=== PATIENT | male | born 1945 | race Caucasian/White ===

== ENCOUNTER 2020-01-15 14:25 | Outpatient (CLI) | payer MEDICARE, MEDICAID, SELFPAY ==
[2020-01-15 14:57] LABS: Alanine Aminotransferase 13 U/L (0-41); Albumin Level 4.4 g/dL (3.5-5.2); Alkaline Phosphatase 70 IU/L (40-130); Anion Gap 13.8 (5-19); Aspartate Amino Transferase 18 U/L (0-40); Blood Urea Nitrogen 18 mg/dL (8-23); Carbon Dioxide 33 mmol/L (22-29); Chloride 99 mmol/L (98-107); Chol HDL Ratio 1.91 mg/dL (1.0-5.00); Cholesterol 168 mg/dL (0-200); Globulin 2.8 g/dL (1.3-4.6); Glucose 77 mg/dL (65-115); HDL Cholesterol 88 mg/dL (60-100); LDL Cholesterol Calculated 72 mg/dL (50-129); LDL HDL Ratio 0.82 RATIO (0.00-3.22); Osmolality Calculated 287 mOsm/kg (285-295); Potassium 4.8 mmol/L (3.5-5.1); Sodium 141 mmol/L (136-145); Total Bilirubin 0.2 mg/dL (0.15-1.2); Total Protein 7.2 g/dL (6.6-8.7); Triglycerides 41 mg/dL (0-150)
[2020-01-16 15:48] LABS: Basophils # 0.1 10^3/uL (0.0-0.1); Basophils % 0.9 %; Eosinophils # 0.2 10^3/uL (0.0-0.8); Eosinophils % 3.7 %; Hematocrit 43.3 % (42.0-52.0); Hemoglobin 12.1 g/dL (11.7-16.6); Lymphocytes # 1.2 10^3/uL (0.8-4.8); Lymphocytes % 18.2 %; Mean Corpuscular HGB Conc 27.9 g/dL (30.0-36.0); Mean Platelet Volume 10.6 fL (7.4-10.4); Monocytes # 0.6 10^3/uL (0.2-0.9); Monocytes % 8.6 %; Neutrophils # 4.4 10^3/uL (1.8-7.7); Neutrophils % 68.1 %; Nucleated Red Blood Cells % 0 %; Platelet Count 246 10^3/cmm (130-400); Red Cell Distribution Width 14.9 % (12.1-15.1); White Blood Count 6.5 10^3/uL (4.0-10.0)
== END 2020-01-15 14:26 | disposition home or self-care (01) ==
LOC: LAB 14:30
PROVIDERS: PCP Radiology Radiation Oncology; Visit Provider Nurse Practitioner Family
DX: Z85.038 Personal history of other malignant neoplasm of large intestine (principal)
CPT/HCPCS: 80053; 80061; 85025

== ENCOUNTER 2020-01-16 08:00 | Outpatient (CLI) | payer MEDICARE, MEDICAID, SELFPAY | END 2020-01-16 08:01 | disposition home or self-care (01) | LOC: LAB 01-29 09:37 | PROVIDERS: Visit Provider Nurse Practitioner Family | DX: Z85.038 Personal history of other malignant neoplasm of large intestine (principal) | CPT/HCPCS: 85025 ==

== ENCOUNTER 2020-01-21 14:38 | Outpatient (CLI) | payer MEDICARE, MEDICAID, SELFPAY ==
[2020-01-21 15:16] LABS: Bilirubin Urine Neg (NEGATIVE); Blood Urine Neg (Negative); Glucose Urine UA Norm (Normal); Ketones Urine Negative (Negative); Leukocyte Esterase Urine Negative (Negative); Nitrate Urine Negative (Negative); Protein Urine Neg (Negative); Urine Appearance Clear (CLEAR); Urine Color Yellow (Yellow); Urobilinogen Urine Norm (Negative); pH Urine 5 (5-7)
[2020-01-21 15:40] LABS: Add Urine Culture? No; Bacteria Urine TRACE; Squamous Epithelial Cell Urine 0-4 (0-5)
== END 2020-01-21 14:39 | disposition home or self-care (01) ==
LOC: LAB 14:41
PROVIDERS: Visit Provider Nurse Practitioner Family
DX: Z85.038 Personal history of other malignant neoplasm of large intestine (principal)
CPT/HCPCS: 81001

== ENCOUNTER 2020-12-02 20:54 | Inpatient (IN) | payer MEDICARE, MEDICAID, SELFPAY ==
[2020-12-02 21:02] VITALS: BP 184/102; PULSE 98; RESP 14; O2SAT 99; BMI 18.5
[2020-12-02 21:23] VITALS: BP 189/128; PULSE 97; RESP 18; O2SAT 93
--- NOTE | 2020-12-02 21:23 | CTR_ITS ---
PROCEDURE INFORMATION: Exam: CT Head Without Contrast Exam date and time: 12/02/2020 9:27 PM Age: 75 years old Clinical indication: Pain; Altered mental status/memory loss; Confusion or disorientation; Patient HX: AMS. Confusion. Frontal headache. TECHNIQUE: Imaging protocol: Computed tomography of the head without contrast. Radiation optimization: All CT scans at this facility use at least one of these dose optimization techniques: automated exposure control; mA and/or kV adjustment per patient size (includes targeted exams where dose is matched to clinical indication); or iterative reconstruction. ADDITIONAL STUDY INFORMATION: Total DLP (mGy-cm): 896.91 COMPARISON: No relevant prior studies available. FINDINGS: Examination is limited by artifacts from patient motion. There is prominent low density in the bilateral periventricular white matter which may represent chronic small vessel ischemic disease in the appropriate clinical setting. The possibility of superimposed acute infarctions cannot be excluded; consider MRI brain (including diffusion images) for further assessment if clinically warranted and if patient has no contraindication to MRI. There are prominent intracranial arterial calcifications. There is mild cerebral cortical volume loss. Ventricles do not appear significantly dilated. No definite depressed calvarial fracture is demonstrated. Visualized paranasal sinuses and mastoid air cells demonstrate no significant opacification. There is aeration of each anterior clinoid process and the optic nerves traverse these regions. CT/CT head wo con* [id number] IMPRESSION: Examination is limited by artifacts from patient motion. Probable prominent chronic ischemic changes as discussed above. Radiation Dose CTDIVOL = (mGy): DLP = 896.91 (mGy-cm)
--- NOTE | 2020-12-02 21:23 | XR_ITS ---
WS: [id number] Portable AP upright chest, 12/02/2020 Clinical Data: ams Comparison: Portable chest, 11/12/2018. Findings: There is a 4 cm spiculated mass with a irregular border in the left lower lobe. The diaphra gms are flattened. Chronic interstitial changes are seen throughout both lungs. There is pleural thic kening in both upper lobes. The heart is normal. The aortic arch is tortuous. No effusions are seen. No pneumothorax is present. The left diaphragm is slightly elevated. Monitor leads are on the chest w all. XR/XR chest 1V portable [id number] Impression: 1. 4 cm mass in left lower lobe consistent with cancer of the lung. 2. Bilateral upper lobe pleural thickening unchanged. 3. Chronic interstitial changes of COPD unchanged.
--- NOTE | 2020-12-02 21:23 | ECG_ITS ---
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 Measurements Intervals [place] Rate: 89 P: [place]: QRS: 79 QRSD: 96 T: 64 QT: 380 QTc: 463 Interpretive Statements ATRIAL FIBRILLATION INCOMPLETE RIGHT BUNDLE BRANCH BLOCK [90+ ms QRS DURATION, TERMINAL R IN V1/V2, 40+ ms S IN I/aVL/V4/V5/V6] MINIMAL ST DEPRESSION [0.025+ mV ST DEPRESSION] ABNORMAL RHYTHM ECG Compared to ECG 11/12/2018 10:40:37 Incomplete right bundle-branch block now present Aberrant conduction of supraventricular beat(s) no longer present Ventricular premature complex(es) no longer present ST (T wave) deviation still present Electronically Signed On 12-03-2020 19:46:38 CDT by Erica Orosco M.D. [id number]
--- NOTE | 2020-12-02 21:27 | ED_ITS ---
HPI - Altered Mental Status General: Chief Complaint: Altered Mental Status Stated Complaint: DYSPNEA Time Seen by Provider: 12/02/20 21:13 Source: patient Mode of arrival: ambulatory Limitations: altered mental status History of Present Illness: HPI narrative: 75-year-old male who is here by EMS. He states that he has had confusion over the last 2 days. Family states that as a missing normal was yesterday. Here he has pretty severe aphasia with word finding difficulty. He is confused and unable to tell me the year. He does state he has had some chest pain. He is able to move all his extremities but does have slurred speech and word salad. I said his last known normal was yesterday. 2139 patient's daughter here now. She states that she spoke to him this morning at 9 AM and his speech was not like it is currently so his last known definite normal is 90 a.m. She states that he seems to be having extremely hard time finding words and this is not his normal. Associated symptoms: Deny depression Review of Systems Const: Denies: fever(s), chills, body aches or change in appetite Eyes: Denies: blurry vision or eye discomfort ENMT: Denies: throat pain or dental pain Card: Denies: chest pain Resp: Denies: dyspnea GI: Denies: abdominal pain, nausea, vomiting or diarrhea : Denies: dysuria Musc: Denies: neck pain or back pain Skin/Breast: Denies: rash Neuro: Reports: weakness in extremities and confusion; Denies: headache(s) Psych: Denies: depression Baljeet/Lymph: Denies: easy bruising All/Imm: Denies: urticaria PFSH ED PFSH: Medical History Abnormal colonoscopy Cardiomyopathy Colon polyps COPD (chronic obstructive pulmonary disease) Rectal bleed Rectal mass adenocarcinoma Smoker Surgical History (Updated 12/03/20 @ 00:06 by Chema Ge MD) H/O hernia repair Family History (Updated 12/03/20 @ 00:07 by Chema Ge MD) Daughter No problems noted. Brother Cancer colon cancer Social History (Updated 12/03/20 @ 00:07 by Chema Ge MD) Smoking and tobacco status: current every day smoker Alcohol intake: never Substance/Drug Use: never Household members: family Housing: House Physical Exam Const: COMMON NORMALS: no acute distress and healthy appearing; negative for patient oriented x3 HENMT: COMMON NORMALS: normocephalic and atraumatic HEAD & SCALP: normocephalic and atraumatic Eye: COMMON NORMALS: Equal, round and reactive pupils present and EOMs intact bilaterally PUPIL: Yes Equal, round and reactive pupils present Neck/C-Spine: COMMON NORMALS: full ROM and supple Chest: COMMONS NORMALS: normal inspection of the chest and normal palpation of entire chest wall Resp: COMMON NORMALS: normal respiratory effort, No retractions, No use of accessory muscles and clear to auscultation bilaterally AUSCULTATION: clear to auscultation bilaterally Cardio: COMMON NORMALS: regular rate, regular rhythm and No murmurs present (Cardio) RATE: regular rate RHYTHM: regular rhythm GI: COMMON NORMALS: Normal to inspection, nondistended, normoactive bowel sounds present, Soft to palpation, non-tender and no masses PALPATION: Yes Soft to palpation Extremity: COMMON NORMALS: normal to inspection and full ROM Neuro: COMMON NORMALS: moves all extremities; negative for patient oriented x3 CRANIAL NERVES: Yes CN normal except as noted COORDINATION/BALANCE: [id number] test normal SPEECH: abnormal speech and expressive aphasia MOTOR EXAM: 5/5 motor strength present throughout COORDINATION: [id number] test normal Psych: COMMON NORMALS: Normal thought process present and cooperative; negative for mental status grossly normal and negative for speech normal SPEECH: No normal speech THOUGHT PROCESS: Normal thought process present Skin: COMMON NORMALS: no rashes or lesions noted and no wounds GENERAL SKIN EXAM: no rashes or lesions noted Course Vital Signs: Vital signs: Vital Signs Pulse Rate 100 12/02/20 23:15 Respiratory Rate 19 H 12/02/20 23:15 Blood Pressure 162/96 12/02/20 23:15 Pulse Oximetry 98 12/02/20 23:15 MDM - Altered Mental Status MDM Narrative: Medical decision making narrative: Patient presents here with aphasia. I did go back and reevaluate him and his speech is getting better but he still not clear. CTA shows no acute plaque formation. He last known normal was 9 AM is out of any treatment window for TPA or retrieval. Patient also has a lung mass noted on CT. I spoke to the hospitalist will admit at this time. Patient has been stable while here. Lab Data: Labs: Lab Results 12/02/20 12/02/20 12/02/20 Range/Units 21:59 21:59 21:59 WBC 8.4 (4.0-10.0) 10^3/ uL RBC 3.98 L (4.1-5.3) 10^6/u L Hgb 12.1 (11.7-16.6) g/dL Hct 38.0 L (42.0-52.0) % MCV 95.5 H (80-94) fL MCH 30.4 (28.0-34.0) pg MCHC 31.8 (30.0-36.0) g/dL RDW 15.2 H (12.1-15.1) % Plt Count 206 (130-400) 10^3/c mm MPV 9.3 (7.4-10.4) fL Neut % (Auto) 83.2 % Lymph % (Auto) 6.9 % [place] % (Auto) 7.5 % Eos % (Auto) 1.3 % Baso % (Auto) 0.5 % Neut # (Auto) 6.94 (1.8-7.7) 10^3/u L Lymph # (Auto) 0.6 L (0.8-4.8) 10^3/u L [place] # (Auto) 0.6 (0.2-0.9) 10^3/u L Eos # (Auto) 0.1 (0.0-0.8) 10^3/u L Baso # (Auto) 0.0 (0.0-0.1) 10^3/u L Nucleated RBC % (a uto) 0 % Nucleated RBCs # 0.0 /100WBC PT 13.20 (12.1-14.9) SECO NDS INR 0.97 (0.8-1.2) Sodium 136 (136-145) mmol/L Potassium 4.5 (3.5-5.1) mmol/L Chloride 99 (98-107) mmol/L Carbon Dioxide 28 (22-29) mmol/L Anion Gap 13.5 (5-19) BUN 16 (8-23) mg/dL Creatinine 1.0 (0.7-1.2) mg/dL GFR Calculation Not Reportable Glucose 135 H (65-115) mg/dL Calculated Osmolal ity 285 (285-295) mOsm/k g Calcium 8.6 (8.5-10.5) mg/dL Total Bilirubin 0.4 (0.15-1.2) mg/dL AST 14 (0-40) U/L ALT 10 (0-41) U/L Alkaline Phosphata se 91 (40-130) IU/L Troponin T Baselin e (0-15) ng/L Total Protein 7.7 (6.6-8.7) g/dL Albumin 4.2 (3.5-5.2) g/dL Globulin 3.5 (1.3-4.6) g/dL 12/02/20 Range/Units 21:59 WBC (4.0-10.0) 10^3/ uL RBC (4.1-5.3) 10^6/u L Hgb (11.7-16.6) g/dL Hct (42.0-52.0) % MCV (80-94) fL MCH (28.0-34.0) pg MCHC (30.0-36.0) g/dL RDW (12.1-15.1) % Plt Count (130-400) 10^3/c mm MPV (7.4-10.4) fL Neut % (Auto) % Lymph % (Auto) % [place] % (Auto) % Eos % (Auto) % Baso % (Auto) % Neut # (Auto) (1.8-7.7) 10^3/u L Lymph # (Auto) (0.8-4.8) 10^3/u L [place] # (Auto) (0.2-0.9) 10^3/u L Eos # (Auto) (0.0-0.8) 10^3/u L Baso # (Auto) (0.0-0.1) 10^3/u L Nucleated RBC % (a uto) % Nucleated RBCs # /100WBC PT (12.1-14.9) SECO NDS INR (0.8-1.2) Sodium (136-145) mmol/L Potassium (3.5-5.1) mmol/L Chloride (98-107) mmol/L Carbon Dioxide (22-29) mmol/L Anion Gap (5-19) BUN (8-23) mg/dL Creatinine (0.7-1.2) mg/dL GFR Calculation Glucose (65-115) mg/dL Calculated Osmolal ity (285-295) mOsm/k g Calcium (8.5-10.5) mg/dL Total Bilirubin (0.15-1.2) mg/dL AST (0-40) U/L ALT (0-41) U/L Alkaline Phosphata se (40-130) IU/L Troponin T Baselin e 38 H (0-15) ng/L Total Protein (6.6-8.7) g/dL Albumin (3.5-5.2) g/dL Globulin (1.3-4.6) g/dL Imaging Data^: CT Head: Radiologist's impression: [facility] [address] [address] Scan Report Signed Patient: Junior Rambo Unit #: [id number] : 1945 Age/Sex: 75 / M ADM Date: 12/02/20 Loc: ER Room/Bed: Attending Dr: Ordering Provider/Ordering MD: David Jolley MD Date of Service: 12/02/20 Procedure(s): CT head wo con* [id number] Accession Number(s): [id number] Report Number: [id number] PROCEDURE INFORMATION: Exam: CT Head Without Contrast Exam date and time: 12/02/2020 9:27 PM Age: 75 years old Clinical indication: Pain; Altered mental status/memory loss; Confusion or disorientation; Patient HX: AMS. Confusion. Frontal headache. TECHNIQUE: Imaging protocol: Computed tomography of the head without contrast. Radiation optimization: All CT scans at this facility use at least one of these dose optimization techniques: automated exposure control; mA and/or kV adjustment per patient size (includes targeted exams where dose is matched to clinical indication); or iterative reconstruction. ADDITIONAL STUDY INFORMATION: Total DLP (mGy-cm): 896.91 COMPARISON: No relevant prior studies available. FINDINGS: Examination is limited by artifacts from patient motion. There is prominent low density in the bilateral periventricular white matter which may represent chronic small vessel ischemic disease in the appropriate clinical setting. The possibility of superimposed acute infarctions cannot be excluded; consider MRI brain (including diffusion images) for further assessment if clinically warranted and if patient has no contraindication to MRI. There are prominent intracranial arterial calcifications. There is mild cerebral cortical volume loss. Ventricles do not appear significantly dilated. No definite depressed calvarial fracture is demonstrated. Visualized paranasal sinuses and mastoid air cells demonstrate no significant opacification. There is aeration of each anterior clinoid process and the optic nerves traverse these regions. CT/CT head wo con* [id number] IMPRESSION: Examination is limited by artifacts from patient motion. Probable prominent chronic ischemic changes as discussed above. CT Chest: Attestation: I personally reviewed and interpreted this imaging study as follows: Radiologist's impression: [facility] [address] [address] Scan Report Signed Patient: Junior Rambo Unit #: [id number] : 1945 Age/Sex: 75 / M ADM Date: 12/02/20 Loc: ER Room/Bed: Attending Dr: Ordering Provider/Ordering MD: David Jolley MD Date of Service: 12/02/20 Procedure(s): CT chest w con* [id number] Accession Number(s): [id number] Report Number: [id number] PROCEDURE INFORMATION: Exam: CT Chest With Contrast; Diagnostic Exam date and time: 12/02/2020 10:21 PM Age: 75 years old Clinical indication: Abnormal findings; Abnormal radiologic exam of lung or chest; Additional info: Lung mass TECHNIQUE: Imaging protocol: Diagnostic computed tomography of the chest with contrast. Radiation optimization: All CT scans at this facility use at least one of these dose optimization techniques: automated exposure control; mA and/or kV adjustment per patient size (includes targeted exams where dose is matched to clinical indication); or iterative reconstruction. Contrast material: OMNI 350; Contrast volume: 75 ml; Contrast route: INTRAVENOUS (IV); COMPARISON: 1. CT chest w con* [id number] 12/04/2018 11:[address] Chest/Abdomen/Pelvis w IV* 08/24/2018 10:08:23 AM RADIATION DOSE METRICS: Total DLP (mGy-cm): 595.19 FINDINGS: Lungs: There is a spiculated 3.3 x 4.5 x 3.2 cm sized mass in the left lower lobe with scarring and retraction of the adjacent lung. The mass extends to end retracts the fissure on the left and there is extension inferiorly towards the left pleural surface with a 9 mm sized subpleural satellite nodule worrisome for additional malignancy. There are extensive changes of pulmonary emphysema on both sides. This mass is larger than on prior studies including PET scan 12/16/2018. There is a stable subpleural nodule in the left lower lobe such as an image number 42 of series 602 coronal Pleural spaces: There is moderate left pleural effusion. There is bilateral apical pleural thickening increased from the prior examinations. Heart: Unremarkable. No cardiomegaly. No pericardial effusion. Mediastinal space: There is a small hiatal hernia. Aorta: There is no evidence of thoracic aortic aneurysm or dissection. Lymph nodes: There is small left paratracheal lymph nodes measuring up to 10 x 12 mm slightly more prominent than on the previous examination. Bones/joints: Unremarkable. No acute fracture. Soft tissues: Unremarkable. CT/CT chest w con* [id number] IMPRESSION: 1. Severe COPD. 2. Enlarging left pulmonary mass which is highly worrisome for malignancy. 3. Left pleural effusion. 4. Increasing apical pleural thickening on both sides. Other CT: Radiologist's impression: [email or web address] [address] [address] Scan Report Signed Patient: Junior Rambo Unit #: [id number] : 1945 Age/Sex: 75 / M ADM Date: 0 12/02/20 Loc: ER Room/Bed: Attending Dr: Ordering Provider/Ordering MD: David Jolley MD Date of Service: 12/02/20 Procedure(s): CT angio headneck* [id number] Accession Number(s): [id number] Report Number: [id number] PROCEDURE INFORMATION: Exam: CT Angiography Head With Contrast, Arteries Exam date and time: 12/02/2020 9:54 PM Age: 75 years old Clinical indication: Speech disturbance; Additional info: CVA TECHNIQUE: Imaging protocol: Computed tomography angiography of the head with intravenous contrast. 3D rendering (Not supervised by radiologist): MIP and/or 3D reconstructed images were created by the technologist. Total images: 823 Radiation optimization: All CT scans at this facility use at least one of these dose optimization techniques: automated exposure control; mA and/or kV adjustment per patient size (includes targeted exams where dose is matched to clinical indication); or iterative reconstruction. Contrast material: OMNI 350; Contrast volume: 75 ml; Contrast route: INTRAVENOUS (IV); COMPARISON: No relevant prior studies available. 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 Intracranial segment is patent with no significant stenosis. No aneurysm. Right middle cerebral artery: Unremarkable. No occlusion or significant stenosis. No aneurysm. Right anterior cerebral artery: Unremarkable. No occlusion or significant stenosis. No aneurysm. Left internal carotid artery: Findings raising suspicion for very short segment hemodynamically significant stenosis of the petrous portion of the internal carotid artery estimated between 60 and 70%. No occlusion. 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 Intracranial segment is patent with no significant stenosis. No aneurysm. Left middle cerebral artery: Unremarkable. No occlusion or significant stenosis. No aneurysm. Left anterior cerebral artery: Unremarkable. No occlusion or significant stenosis. No aneurysm. POSTERIOR CIRCULATION: Right vertebral artery: Hypoplastic. In No occlusion or significant stenosis. No aneurysm. Left vertebral artery: Unremarkable. No occlusion or significant stenosis. No aneurysm. Basilar artery: Unremarkable. No occlusion or significant stenosis. No aneurysm. Right posterior cerebral artery: Unremarkable. No occlusion or significant stenosis. No aneurysm. Left posterior cerebral artery: Unremarkable. No occlusion or significant stenosis. No aneurysm. Bones/joints: Unremarkable. No acute fracture. Soft tissues: Unremarkable. IMPRESSION: 1. Findings raising suspicion for very short segment hemodynamically significant stenosis of the petrous portion of the left internal carotid artery estimated between 60 and 70%. No occlusion. 2. 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 3. Hypoplastic right vertebral artery. PROCEDURE INFORMATION: Exam: CT Angiography Neck With Contrast Exam date and time: 12/02/2020 9:54 PM Age: 75 years old Clinical indication: Speech disturbance; Additional info: CVA TECHNIQUE: Imaging protocol: Computed tomography angiography of the neck with intravenous contrast. 3D rendering (Not supervised by radiologist): MIP and/or 3D reconstructed images were created by the technologist. Radiation optimization: All CT scans at this facility use at least one of these dose optimization techniques: automated exposure control; mA and/or kV adjustment per patient size (includes targeted exams where dose is matched to clinical indication); or iterative reconstruction. Contrast material: OMNI 350; Contrast volume: 75 ml; Contrast route: INTRAVENOUS (IV); COMPARISON: No relevant prior studies available. RADIATION DOSE METRICS: Total DLP (mGy-cm): 2272.05 FINDINGS: Right common carotid artery: No hemodynamically significant stenosis. No dissection or occlusion. Right internal carotid artery: No hemodynamically significant stenosis of the extracranial segment. No dissection or occlusion. Right external carotid artery: No occlusion or stenosis of the origin. Right vertebral artery: Hypoplastic. No stenosis. No dissection or occlusion. Left common carotid artery: No hemodynamically significant stenosis. No dissection or occlusion. Left internal carotid artery: No hemodynamically significant stenosis of the extracranial segment. No dissection or occlusion. Left external carotid artery: No occlusion or stenosis of the origin. Left vertebral artery: No stenosis. No dissection or occlusion. Bones/joints: No acute fracture. Soft tissues: Unremarkable for age. No significant soft tissue swelling. Lungs: Markedly advanced centrilobular emphysema with parenchymal scarring. CT/CT angio headneck* [id number] IMPRESSION: 1. No hemodynamically significant stenosis or occlusion. 2. 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 REFERENCES: 1. NASCET CRITERIA. The degree of internal carotid artery stenosis is based on NASCET criteria. Normal is no stenosis. Mild is less than 50% stenosis. Moderate is 50-69% stenosis. Severe is 70% to 99% stenosis. Total occlusion is no detectable patent lumen. 2. In EKG Data^: EKG 1: Attestation: I personally reviewed and interpreted this EKG as follows: EKG interpretation date: 12/02/20 EKG interpretation time: 22:01 Interpretation: afib hr [address] or t wave abnormalities qrs 96 qtc 426 Discharge Plan Discharge Patient Disposition: Admitted As Inpatient Clinical Impression: Acute CVA (cerebrovascular accident), Lung mass Condition: Stable Coding Level of Care Code ED Salt Manager for Chg Fwd Exam Comprehensive NIH stroke score NIHSS Level Of Consciousness - 1a: 0 Level Of Consciousness Questions - 1b: Both Correct Level Of Consciousness Commands - 1c: Both Correct Best Gaze - 2: Normal Visual Kathleen - 3: No Visual Loss Facial Palsy - 4: Normal Motor Arm Right - 5: No Drift Motor Arm Left - 5: No Drift Motor Leg Right - 6: No Drift Motor Leg Left - 6: No Drift Limb Ataxia - 7: Absent Sensory - 8: Normal Best Language - 9: Severe Aphasia Dysarthia - 10: Severe Dysarthia Extinction And Inattention - 11: 0 Score Total Score: 4
--- NOTE | 2020-12-02 21:51 | CTR_ITS ---
PROCEDURE INFORMATION: Exam: CT Angiography Head With Contrast, Arteries Exam date and time: 12/02/2020 9:54 PM Age: 75 years old Clinical indication: Speech disturbance; Additional info: CVA TECHNIQUE: Imaging protocol: Computed tomography angiography of the head with intravenous contrast. 3D rendering (Not supervised by radiologist): MIP and/or 3D reconstructed images were created by the technologist. Total images: 823 Radiation optimization: All CT scans at this facility use at least one of these dose optimization techniques: automated exposure control; mA and/or kV adjustment per patient size (includes targeted exams where dose is matched to clinical indication); or iterative reconstruction. Contrast material: OMNI 350; Contrast volume: 75 ml; Contrast route: INTRAVENOUS (IV); COMPARISON: No relevant prior studies available. 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 Intracranial segment is patent with no significant stenosis. No aneurysm. Right middle cerebral artery: Unremarkable. No occlusion or significant stenosis. No aneurysm. Right anterior cerebral artery: Unremarkable. No occlusion or significant stenosis. No aneurysm. Left internal carotid artery: Findings raising suspicion for very short segment hemodynamically significant stenosis of the petrous portion of the internal carotid artery estimated between 60 and 70%. No occlusion. 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 Intracranial segment is patent with no significant stenosis. No aneurysm. Left middle cerebral artery: Unremarkable. No occlusion or significant stenosis. No aneurysm. Left anterior cerebral artery: Unremarkable. No occlusion or significant stenosis. No aneurysm. POSTERIOR CIRCULATION: Right vertebral artery: Hypoplastic. In No occlusion or significant stenosis. No aneurysm. Left vertebral artery: Unremarkable. No occlusion or significant stenosis. No aneurysm. Basilar artery: Unremarkable. No occlusion or significant stenosis. No aneurysm. Right posterior cerebral artery: Unremarkable. No occlusion or significant stenosis. No aneurysm. Left posterior cerebral artery: Unremarkable. No occlusion or significant stenosis. No aneurysm. Bones/joints: Unremarkable. No acute fracture. Soft tissues: Unremarkable. IMPRESSION: 1. Findings raising suspicion for very short segment hemodynamically significant stenosis of the petrous portion of the left internal carotid artery estimated between 60 and 70%. No occlusion. 2. 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 3. Hypoplastic right vertebral artery. PROCEDURE INFORMATION: Exam: CT Angiography Neck With Contrast Exam date and time: 12/02/2020 9:54 PM Age: 75 years old Clinical indication: Speech disturbance; Additional info: CVA TECHNIQUE: Imaging protocol: Computed tomography angiography of the neck with intravenous contrast. 3D rendering (Not supervised by radiologist): MIP and/or 3D reconstructed images were created by the technologist. Radiation optimization: All CT scans at this facility use at least one of these dose optimization techniques: automated exposure control; mA and/or kV adjustment per patient size (includes targeted exams where dose is matched to clinical indication); or iterative reconstruction. Contrast material: OMNI 350; Contrast volume: 75 ml; Contrast route: INTRAVENOUS (IV); COMPARISON: No relevant prior studies available. RADIATION DOSE METRICS: Total DLP (mGy-cm): 2272.05 FINDINGS: Right common carotid artery: No hemodynamically significant stenosis. No dissection or occlusion. Right internal carotid artery: No hemodynamically significant stenosis of the extracranial segment. No dissection or occlusion. Right external carotid artery: No occlusion or stenosis of the origin. Right vertebral artery: Hypoplastic. No stenosis. No dissection or occlusion. Left common carotid artery: No hemodynamically significant stenosis. No dissection or occlusion. Left internal carotid artery: No hemodynamically significant stenosis of the extracranial segment. No dissection or occlusion. Left external carotid artery: No occlusion or stenosis of the origin. Left vertebral artery: No stenosis. No dissection or occlusion. Bones/joints: No acute fracture. Soft tissues: Unremarkable for age. No significant soft tissue swelling. Lungs: Markedly advanced centrilobular emphysema with parenchymal scarring. CT/CT angio headneck* [id number] IMPRESSION: 1. No hemodynamically significant stenosis or occlusion. 2. 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 REFERENCES: 1. NASCET CRITERIA. The degree of internal carotid artery stenosis is based on NASCET criteria. Normal is no stenosis. Mild is less than 50% stenosis. Moderate is 50-69% stenosis. Severe is 70% to 99% stenosis. Total occlusion is no detectable patent lumen. 2. In Radiation Dose CTDIVOL = (mGy): DLP = 2272.05~2272.05 (mGy-cm)
[2020-12-02 22:09] LABS: Basophils % 0.5 %; Eosinophils # 0.1 10^3/uL (0.0-0.8); Eosinophils % 1.3 %; Hemoglobin 12.1 g/dL (11.7-16.6); Lymphocytes # 0.6 10^3/uL (0.8-4.8); Lymphocytes % 6.9 %; Mean Corpuscular HGB Conc 31.8 g/dL (30.0-36.0); Mean Corpuscular Hemoglobin 30.4 pg (28.0-34.0); Mean Corpuscular Volume 95.5 fL (80-94); Mean Platelet Volume 9.3 fL (7.4-10.4); Monocytes # 0.6 10^3/uL (0.2-0.9); Monocytes % 7.5 %; Neutrophils # 6.94 10^3/uL (1.8-7.7); Neutrophils % 83.2 %; Nucleated Red Blood Cells % 0 %; Platelet Count 206 10^3/cmm (130-400); Red Blood Count 3.98 10^6/uL (4.1-5.3); Red Cell Distribution Width 15.2 % (12.1-15.1); White Blood Count 8.4 10^3/uL (4.0-10.0)
[2020-12-02] MEDS: ondansetron 2 mg/ML SDV 2 mL 4 MG IVP (22:09)
[2020-12-02] MEDS: aspirin 325 mg Tablet PO (22:10)
--- NOTE | 2020-12-02 22:12 | CTR_ITS ---
PROCEDURE INFORMATION: Exam: CT Chest With Contrast; Diagnostic Exam date and time: 12/02/2020 10:21 PM Age: 75 years old Clinical indication: Abnormal findings; Abnormal radiologic exam of lung or chest; Additional info: Lung mass TECHNIQUE: Imaging protocol: Diagnostic computed tomography of the chest with contrast. Radiation optimization: All CT scans at this facility use at least one of these dose optimization techniques: automated exposure control; mA and/or kV adjustment per patient size (includes targeted exams where dose is matched to clinical indication); or iterative reconstruction. Contrast material: OMNI 350; Contrast volume: 75 ml; Contrast route: INTRAVENOUS (IV); COMPARISON: 1. CT chest w con* [id number] 12/04/2018 11:[address] Chest/Abdomen/Pelvis w IV* 08/24/2018 10:08:23 AM RADIATION DOSE METRICS: Total DLP (mGy-cm): 595.19 FINDINGS: Lungs: There is a spiculated 3.3 x 4.5 x 3.2 cm sized mass in the left lower lobe with scarring and retraction of the adjacent lung. The mass extends to end retracts the fissure on the left and there is extension inferiorly towards the left pleural surface with a 9 mm sized subpleural satellite nodule worrisome for additional malignancy. There are extensive changes of pulmonary emphysema on both sides. This mass is larger than on prior studies including PET scan 12/16/2018. There is a stable subpleural nodule in the left lower lobe such as an image number 42 of series 602 coronal Pleural spaces: There is moderate left pleural effusion. There is bilateral apical pleural thickening increased from the prior examinations. Heart: Unremarkable. No cardiomegaly. No pericardial effusion. Mediastinal space: There is a small hiatal hernia. Aorta: There is no evidence of thoracic aortic aneurysm or dissection. Lymph nodes: There is small left paratracheal lymph nodes measuring up to 10 x 12 mm slightly more prominent than on the previous examination. Bones/joints: Unremarkable. No acute fracture. Soft tissues: Unremarkable. CT/CT chest w con* [id number] IMPRESSION: 1. Severe COPD. 2. Enlarging left pulmonary mass which is highly worrisome for malignancy. 3. Left pleural effusion. 4. Increasing apical pleural thickening on both sides. Radiation Dose CTDIVOL = (mGy): DLP = 595.19 (mGy-cm)
[2020-12-02 22:18] LABS: INR 0.97 (0.8-1.2)
[2020-12-02 22:28] LABS: Alanine Aminotransferase 10 U/L (0-41); Albumin Level 4.2 g/dL (3.5-5.2); Alkaline Phosphatase 91 IU/L (40-130); Anion Gap 13.5 (5-19); Aspartate Amino Transferase 14 U/L (0-40); Blood Urea Nitrogen 16 mg/dL (8-23); Calcium 8.6 mg/dL (8.5-10.5); Carbon Dioxide 28 mmol/L (22-29); Chloride 99 mmol/L (98-107); Creatinine Clr Calc Pharmacy 48.4208; Globulin 3.5 g/dL (1.3-4.6); Glucose 135 mg/dL (65-115); Osmolality Calculated 285 mOsm/kg (285-295); Potassium 4.5 mmol/L (3.5-5.1); Sodium 136 mmol/L (136-145); Total Bilirubin 0.4 mg/dL (0.15-1.2); Total Protein 7.7 g/dL (6.6-8.7)
[2020-12-02 22:54] LABS: Troponin(5th) Baseline 38 ng/L (0-15)
[2020-12-02] MEDS: iohexol 350 mg/mL 100 mL Btl IV ×2 (22:55→22:58)
[2020-12-02 23:15] VITALS: BP 162/96; PULSE 100; RESP 19; O2SAT 98
[2020-12-02] MEDS: acetaminophen 500 mg Tablet 1000 MG PO (23:17)
--- NOTE | 2020-12-02 23:23 | ECG_ITS ---
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 Measurements Intervals [place] Rate: 83 P: AK: QRS: 85 QRSD: 94 T: 69 QT: 381 QTc: 449 Interpretive Statements ATRIAL FIBRILLATION INCOMPLETE RIGHT BUNDLE BRANCH BLOCK [90+ ms QRS DURATION, TERMINAL R IN V1/V2, 40+ ms S IN I/aVL/V4/V5/V6] MINIMAL ST DEPRESSION [0.025+ mV ST DEPRESSION] ABNORMAL RHYTHM ECG Compared to ECG 12/02/2020 22:01:53 No significant changes Electronically Signed On 12-03-2020 19:52:38 CDT by Erica Orosco M.D. [id number]
[2020-12-03] VITALS (14 sets, daily range): BP systolic 138–186; BP diastolic 69–98; PULSE 61–104; RESP 16–20; TEMP 36.2–37.1; O2SAT 95–98
--- NOTE | 2020-12-03 00:04 | P.HP_ITS ---
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 As per the rebeca westbrook, she spoke with him today at 9 AM at that time his speech was normal however patient is stating that his symptoms started last night with shortness of breath. He did not notice any speech abnormalities however daughter noticed garbled speech EMS was called for evaluation of stroke On arrival in the ER speech was garbled which was witnessed by Dr. Jolley, however when I saw the patient speech was normal, he had mild right-sided facial droop, he was struggling with word finding during conversation however was very pleasant and I did not appreciate any speech abnormality other than word finding difficulty. He is able to tell me that he smokes every day and he lives with his daughter, he told me about his cancer diagnosis in 2019. He is also stating that he is status post colon resection but never required any colostomy bag. He is denying chest pain, shortness of breath, fever nausea, vomiting or diarrhea. He feels back to baseline. Code stroke was not called because of delayed presentation and he was out of window for vascular intervention as well. CT head unremarkable however CTA head and neck revealedIMPRESSION: 1. Findings raising suspicion for very short segment hemodynamically significant stenosis of the petrous portion of the left internal carotid artery estimated between 60 and 70%. No occlusion. 2. 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 3. Hypoplastic right vertebral artery. Telemetry revealed A. fib with RVR heart rate 98-1 02 with normal hemodynamics he was requiring 3 L of oxygen at home he uses 2 to 3 L at baseline Review of Systems Const: Denies: fever(s) Eyes: Denies: change in vision ENMT: Denies: throat pain Card: Denies: chest pain Resp: Reports: dyspnea and non-productive cough GI: Denies: abdominal pain : Denies: flank pain Musc: Denies: neck pain Skin/Breast: Denies: rash Neuro: Reports: Slurred speech present and difficulty communicating thoughts Psych: Denies: anxiety Endo: Denies: polyuria Baljeet/Lymph: Denies: easy bruising All/Imm: Denies: urticaria PFSH Acute PFSH: Medical History Abnormal colonoscopy Cardiomyopathy Colon polyps COPD (chronic obstructive pulmonary disease) Rectal bleed Rectal mass adenocarcinoma Smoker Surgical History H/O hernia repair Family History Daughter No problems noted. Brother Cancer colon cancer Social History Smoking and tobacco status: current every day smoker Alcohol intake: never Substance/Drug Use: never Household members: family Housing: House Vitals/I&O/Wt Last Vital Signs Pulse 100 12/02/20 23:15 Resp 19 H 12/02/20 23:15 BP 162/96 12/02/20 23:15 Pulse Ox 98 12/02/20 23:15 Weight last 48 hrs Weight 55.338 kg Physical Exam Narrative: EXAM NARRATIVE: Very pleasant male who appears younger than stated age no signs of dehydration or fluid overload He was saturating well on 3 to nasal cannula NIH score 1 for mild right-sided facial droop no dysarthria, no upper or more extremity weakness he was awake and alert oriented x3 GCS 15, does struggle with word finding during conversation S1, S2 variable no signs of murmur Abdomen soft nontender bowel sound present Bilateral breath sounds without adventitial rhonchi or crackles No signs of cellulitis Lower extremity no edema gangrene or ulcer Appropriate mood and affect Data : 12/02/20 21:59 12/02/20 21:59 A&P Assessment and plan (1) New onset a-fib: Status: Acute (2) TIA (transient ischemic attack): Status: Acute Additional A&P Information TIA NIH 1 Code stroke was not called as he was not in TPA window or intervention CT head unremarkable however CTA head and neck revealed left internal carotid intracranial 6070% stenosis without occlusion Patient symptoms of garbled speech resolved by the time I saw him however has mild facial droop, will request MRI in the morning We will start him on dual antiplatelet therapy and atorvastatin along Eliquis Request echo in the morning New onset A. fib RVR There is no clot on CTA head and neck I will start him on Eliquis with low-dose metoprolol twice a day Check TSH and magnesium level This seems secondary to pulmonary pathology/lung mass Previous lung mass navigation bronchoscopy did not reveal malignant cells as per Dr. Gonzalez's note Adenocarcinoma of rectum Status post chemoradiation Patient is stating that he underwent surgery and he is in remission of cancer however he is denying requiring colostomy bag, I highly doubt APR resection would have been done without colostomy bag, please reevaluate surgical history in the morning with Dr. Gonzalez Patient is not endorsing any abdominal pain no constipation Dysarthria has improved I will keep him on cardiac diet for now we will request physical therapy evaluation in the morning Full code DVT prophylaxis not needed currently on Eliquis Attestations Medical Necessity Statement*: Anticipating discharge in less than 48 hours will need TIA work-up and new onset A. fib RVR Time Spent in Patient Care: (>than 50% of time spent in counselling and/or direct pt care on unit) . 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
[2020-12-03 00:23] LABS: Troponin 5 2HR 39.73 ng/L (0-15); Troponin 5 2HR Delta 1.73 ABS# (0-10)
[2020-12-03 00:30] LABS: Add Urine Microscopic? NO
[2020-12-03 00:36] LABS: Bilirubin Urine Neg (Negative); Blood Urine Neg (Negative); Glucose Urine UA Norm (Normal); Ketones Urine Negative (Negative); Leukocyte Esterase Urine Negative (Negative); Nitrate Urine Negative (Negative); Protein Urine Neg (Negative); Sulfosalicylic Acid Urine Negative (Negative); Urine Appearance Clear (CLEAR); Urine Color Yellow (Yellow); Urobilinogen Urine Norm (Negative); pH Urine 8 (5-7)
--- NOTE | 2020-12-03 03:23 | ECG_ITS ---
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 Measurements Intervals [place] Rate: 93 P: AK: QRS: 84 QRSD: 104 T: 72 QT: 378 QTc: 472 Interpretive Statements ATRIAL FIBRILLATION INCOMPLETE RIGHT BUNDLE BRANCH BLOCK [90+ ms QRS DURATION, TERMINAL R IN V1/V2, 40+ ms S IN I/aVL/V4/V5/V6] MINIMAL ST DEPRESSION [0.025+ mV ST DEPRESSION] ABNORMAL RHYTHM ECG Compared to ECG 12/03/2020 02:20:54 No significant changes Electronically Signed On 12-04-2020 22:42:01 CDT by Antonella Anderson M.D. [id number]
[2020-12-03 03:47] LABS: Magnesium 2.1 mg/dL (1.7-2.3); Thyroid Stimulating Hormone 1.27 uIU/mL (0.27-4.20)
[2020-12-03 04:54] LABS: Troponin 5 6HR 39.01 ng/L (0-15); Troponin 5 6HR Delta 1.01 ng/L (0-12)
--- NOTE | 2020-12-03 09:35 | PC.PHAR ---
pt states he takes care of his own medications-pt states he takes aspirin prn-pt states he only has one inhaler proair he uses prn-pt states he is unsure of the names of his medications he uses in his nebulizer machine-pt states he gets [facility] they sent budesonide,perforomist,and albuterol sulfate on 11/20/20
--- NOTE | 2020-12-03 09:48 | PC.CHAP ---
Pastoral Care Encounter/Spiritual Assessment Type of Contact [] Declined elementary teacher visit [] Patient/Family/Request visit [] Outpatient visit [] Follow-up visit [] Physician referral [] Code/Alert [x] Routine visit [] Staff referral [] Actively dying [] Patient sleeping [] Family support [] [] Out of room [] Palliative care [] [] Receiving care in room [] Pre-surgical visit [] Trauma [] Long length of stay [] ICU visit [] Other: Relational/Emotional Strength [x] Patient feels connected with others/family/visitors/staff [] Distress [] Loneliness/isolation [] Abandonment Spirituality of Patient [x] Person of Jeanie [] Attends Confucianist of their Jeanie [x] Believes in Prayer [x] Reads Bible or Latter Day materials [] There are Spiritual issues to be addressed Cellar Hand Interventions [x] Prayer [x] Active listening [x] Non-anxious presence [x] Spiritual/emotional support [] Crisis/trauma care [] Spiritual counseling [] Bereavement support [] Provided bereavement packet [] Provided Bible/devotional materials [] Provided toy/stuffed animal, coloring book to patient or family member [] Provided Communion [] Anointing/[place] [] Salvation [x] Completed spiritual assessment [] Other: Impact on Illness or Injury [] Angry [] Fearful [] Anxious [] Often cries [] Exhaustion [] Unable to work [] Unable to attend jewish [] Unable to walk/stand [] Unable to read [] Unable to drive [] Unable to eat/drink [] Unable to sleep [] Unable to be with family [] Patient intubated [] Other: Summary Pt came in last evening after having a light stroke. 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 While he is here, his sister in law is caring for her. Pt's ten years ago. Pt expressed he is a person of jeanie but does not like to attend tenriism. Is comfortable where he is spiritually. He did request prayer. Time spent with patient 10 m
[2020-12-03] MEDS: aspirin 81 mg EC Tablet PO (10:35)
[2020-12-03] MEDS: atorvastatin 40 mg Tablet PO (10:35)
[2020-12-03] MEDS: apixaban 5 mg Tablet PO ×2 (10:35→17:03)
[2020-12-03] MEDS: clopidogrel 75 mg Tablet PO (10:35)
--- NOTE | 2020-12-03 17:46 | PC.RESP ---
Smoking Cessation and Pulmonary Rehab information sent to patient.
--- NOTE | 2020-12-03 20:49 | PM.PN ---
Subjective Subjective: Interval history: He is overall doing better. His speech is improving. Still has noticeable facial droop on the right side. Denies any additional new numbness or weakness. No vision changes. Vitals/I&O/Wt Last Vital Signs Temp 98.8 F 12/03/20 20:25 Pulse 91 12/03/20 20:25 Resp 18 12/03/20 20:25 BP 156/69 12/03/20 20:25 Pulse Ox 95 12/03/20 20:25 12/03/20 12/03/20 12/03/20 06:59 14:59 22:59 Intake Total 360 / 360 Output Total 500 / 500 1200 / 1200 675 / 1875 Balance -500 / -500 -840 / -840 -675 / -1515 Weight last 48 hrs Weight 55.338 kg Physical Exam Const: COMMON NORMALS: no acute distress and patient oriented x3 HENMT: COMMON NORMALS: oropharynx normal Neck/C-Spine: COMMON NORMALS: no meningeal signs and no JVD Resp: COMMON NORMALS: normal respiratory effort and clear to auscultation bilaterally AUSCULTATION: clear to auscultation bilaterally Cardio: COMMON NORMALS: no JVD, regular rhythm, S1 normal heart sound present, S2 normal heart sound present and No murmurs present (Cardio) RHYTHM: regular rhythm HEART SOUNDS: S1 normal heart sound present and S2 normal heart sound present GI: COMMON NORMALS: Normal to inspection, nondistended, normoactive bowel sounds present, Soft to palpation and non-tender PALPATION: Yes Soft to palpation Extremity: COMMON NORMALS: no joint enlargement and no pedal edema Neuro: COMMON NORMALS: patient oriented x3 and moves all extremities MENINGEAL SIGNS: Yes no meningeal signs COORDINATION/BALANCE: [id number] test normal SPEECH: speech normal SENSORY EXAM: Yes Normal double simultaneous stimulation for sensation MOTOR EXAM: Pronator motor function not present and Other motor observations present (Right side facial droop) COORDINATION: [id number] test normal OTHER: Visual rivsa full to confrontation. No trouble tracking. Skin: COMMON NORMALS: no rashes or lesions noted GENERAL SKIN EXAM: no rashes or lesions noted Data : 12/02/20 21:59 12/02/20 21:59 A&P Assessment and plan (1) TIA (transient ischemic attack): With persistent right-sided facial droop. Appears this may be CVA. Otherwise speech difficulties appear to be resolving. Discussed with him findings of 60-70% stenosis of left ICA. He has been initiated on anticoagulation so far. Signs of stroke is not known. Discussed with him also additionally regarding enlarging mass in the left lower lobe of the lung. With concern for neurologic symptoms it would be important to assess MRI of the brain to assess size of the stroke, to allow continuation of anticoagulation, and assess for any possibility of intracranial lesions. MRI scheduled. Status: Acute (2) New onset a-fib: Continue anticoagulation. Cardiac monitoring. TSH is normal. Follow-up echocardiogram. Consider referral for additional assessment by stress testing to rule out underlying coronary disease. He has no chest pain or signs of acute ischemia. This may be done after discharge. Status: Acute Additional A&P Information Left lower lobe lung mass: Enlarging on CT. Reports previously 2 biopsies in [place] which were nondiagnostic. This was several years ago he states. Due to enlarging size, would consider additional follow-up, consideration whether additional biopsy is needed. Discussed with him. He is in agreement. Adenocarcinoma of rectum Status post chemoradiation Attestations Medical Necessity Statement*: Continue admission is necessary for assessment after acute CVA, with persistent neurological deficit, requirement for anticoagulation and assessment of new atrial fibrillation, assessment for possibility of intracranial mass due to enlarging lung mass, size of acute CVA, in the setting of need of continued anticoagulation. 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
[2020-12-04 00:05] VITALS: BP 161/91; PULSE 84; RESP 16; TEMP 36.4; O2SAT 94
[2020-12-04 04:14] VITALS: BP 148/80; PULSE 88; RESP 18; TEMP 36.9; O2SAT 92
--- NOTE | 2020-12-04 05:00 | USCV_ITS ---
Junior Rambo Age: 75 Gender: M : 1945 Exam Date: 12/04/2020 08:06 Ordering Phys: Abdoul Johnson MD Technologist: Nayely He Exam Location: [facility] – [place] Indication: AFIB BP: 148 / 80 HR: 91 Rhythm: Atrial fibrillation Technical Quality: Very technically difficult study MEASUREMENTS (Male / Female) Normal Values 2D ECHO LV Chamber Size 3.5 cm RV Chamber Size 3.1 cm LVOT Diameter 2.0 cm LV Ejection Fraction MOD 2C 63.7 % LV Ejection Fraction 2C AL 64.2 % LA Diameter 2.8 cm LA Width 4.3 cm LA Height 5.1 cm RA Width 4.2 cm RA Height 4.5 cm M-MODE LV Diastolic Diameter MM 4.7 cm 4.2 - 5.9 / 3.9 - 5.3 cm LV Systolic Diameter MM 2.2 cm LV Ejection Fraction MM Teich 84.8 % IVS Diastolic Thickness MM 0.9 cm 0.6 - 1.0 / 0.6 - 0.9 cm IVS Systolic Thickness MM 1.5 cm LVPW Diastolic Thickness MM 0.7 cm 0.6 - 1.0 / 0.6 - 0.9 cm LVPW Systolic Thickness MM 1.5 cm Aortic Annulus Diameter 2.8 cm LA Ao Ratio MM 0.9 MV E Point Septal Separation 0.9 cm DOPPLER AV Peak Velocity 129.0 cm/s LVOT Peak Velocity 87.0 cm/s AV Area Cont Eq vti 1.8 cm squared AV Area Cont Eq pk 2.1 cm squared MV Area PHT 3.3 cm squared Mitral E to A Ratio 1.8 MV E' Velocity 46.5 cm/s Mitral E to MV E' Ratio 6.3 Mitral E to LV E' Lateral Ratio 6.2 Mitral E to LV E' Septal Ratio 6.5 TR Peak Velocity 139.0 cm/s TR Peak Gradient 7.7 mmHg TV Peak E Velocity 36.0 cm/s Right Atrial Pressure 3.0 mmHg Pulmonary Artery Systolic Pressu 10.7 mmHg PV Peak Velocity 68.0 cm/s RV Acceleration Time 0.1 s RV Ejection Time 0.4 s RV AcT/ET 0.3 FINDINGS Left Ventricle Normal left ventricular size. LV systolic function is normal with EF of 50-55%. No regional wall motion abnormalities. Diastolic function can not be assessed because of atrial fibrillation Right Ventricle The right ventricle is normal in size and function. Right Atrium The right atrium is normal in size. Left Atrium The left atrium is normal in size. Mitral Valve Structurally normal mitral valve without significant stenosis or prolapse. There is mild mitral regurgitation. Aortic Valve Structurally normal aortic valve without significant sclerosis or stenosis. There is no aortic regurgitation. Tricuspid Valve Structurally normal tricuspid valve without significant stenosis or regurgitation. Insufficient TR jet to calculate RVSP Pulmonic Valve Structurally normal pulmonic valve without significant stenosis. There is no pulmonic regurgitation. Pericardium Normal pericardium without effusion. Aorta Normal ascending aorta dimension. CONCLUSIONS LV systolic function is normal with EF of 50-55% Diastolic function can not be assessed because of atrial fibrillation. Mild mitral regurgitation No comparison studies are available Rao Gaspar MD (Electronically Signed) Final Date: 04 December 2020 17:33 S
[2020-12-04 06:00] VITALS: PULSE 85
[2020-12-04 07:23] VITALS: BP 168/80; PULSE 89; RESP 17; TEMP 37.1; O2SAT 98
[2020-12-04] MEDS: aspirin 81 mg EC Tablet PO (08:57)
[2020-12-04] MEDS: apixaban 5 mg Tablet PO (08:57)
[2020-12-04] MEDS: atorvastatin 40 mg Tablet PO (08:57)
[2020-12-04] MEDS: clopidogrel 75 mg Tablet PO (08:57)
--- NOTE | 2020-12-04 10:00 | MR_ITS ---
WS: [id number] MRI BRAIN WITH AND WITHOUT CONTRAST HISTORY: neurologic symptoms, lung mass, history of CRC COMPARISON: None available. TECHNIQUE: Multiplanar imaging performed through the brain with MultiHance 11 ml's IV. No acute infarcts are seen. Santoyo-white matter differentiation is well preserved. Moderate confluent a nd patchy T2 and FLAIR signal hyperintensities predominantly in a periventricular distribution. White matter changes extend above the ventricles and also involve the sameer bilaterally. No prior large inf arct. No susceptibility artifacts or prior lacunar infarcts. Ventricles and extra-axial spaces are normal. Clivus and pituitary gland are normal. Visualized posterior fossa and brainstem are also normal. Postcontrast images are negative for masses or vascular malformations. Dural venous sinuses are normal. Paranasal sinuses: Well aerated with no significant disease. Mastoid air cells: Normal. Calvarium and scalp: Normal. MR/MR head wo/w con [id number] IMPRESSION: 1. No acute infarct or hemorrhage. 2. Moderate chronic microvascular ischemic disease throughout the white matter and also within the sameer bilaterally. 3. No enhancing masses or metastatic disease.
--- NOTE | 2020-12-04 11:58 | PC.CHAP ---
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 [] Patient/Family/Request visit [] Outpatient visit [x] Follow-up visit [] Physician referral [] Code/Alert [] Routine visit [] Staff referral [] Actively dying [] Patient sleeping [] Family support [] [] Out of room [] Palliative care [] [] Receiving care in room [] Pre-surgical visit [] Trauma [] Long length of stay [] ICU visit [] Other: Follow-up visit Relational/Emotional Strength [] Patient feels connected with others/family/visitors/staff [] Distress [] Loneliness/isolation [] Abandonment Spirituality of Patient [] Person of Jeanie [] Attends Adventism of their Jeanie [] Believes in Prayer [] Reads Bible or Sabianist materials [] There are Spiritual issues to be addressed [employer] Manager Interventions [] Prayer [] Active listening [] Non-anxious presence [] Spiritual/emotional support [] Crisis/trauma care [] Spiritual counseling [] Bereavement support [] Provided bereavement packet [] Provided Bible/devotional materials [] Provided toy/stuffed animal, coloring book to patient or family member [] Provided Communion [] Anointing/[place] [] Salvation [] Completed spiritual assessment [] Other: Impact on Illness or Injury [] Angry [] Fearful [] Anxious [] Often cries [] Exhaustion [] Unable to work [] Unable to attend pentecostalism [] Unable to walk/stand [] Unable to read [] Unable to drive [] Unable to eat/drink [] Unable to sleep [] Unable to be with family [] Patient intubated [] Other: Summary Follow-up visit Time spent with patient 5 mins
[2020-12-04 12:00] VITALS: BP 152/69; PULSE 111; RESP 17; TEMP 36.1; O2SAT 94
[2020-12-04 14:25] VITALS: BP 152/69; PULSE 111; RESP 17; TEMP 36.1; O2SAT 94
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
== END 2020-12-04 14:00 | disposition home or self-care (01) | DRG 69 ==
LOC: ER 12-03 00:14 → MEDSURG 12-03 01:49
PROVIDERS: Admitting Provider Internal Medicine; Emergency Provider Emergency Medicine; Visit Provider Internal Medicine
DX: G45.9 Transient cerebral ischemic attack, unspecified (principal); I42.9 Cardiomyopathy, unspecified; I65.22 Occlusion and stenosis of left carotid artery; I48.91 Unspecified atrial fibrillation; R91.8 Other nonspecific abnormal finding of lung field; Z85.038 Personal history of other malignant neoplasm of large intestine; Z92.21 Personal history of antineoplastic chemotherapy; Z92.3 Personal history of irradiation; J44.9 Chronic obstructive pulmonary disease, unspecified; F17.210 Nicotine dependence, cigarettes, uncomplicated; Z90.49 Acquired absence of other specified parts of digestive tract; I25.10 Atherosclerotic heart disease of native coronary artery without angina pectoris; Q27.8 Other specified congenital malformations of peripheral vascular system; Z99.81 Dependence on supplemental oxygen; I10 Essential (primary) hypertension; I34.0 Nonrheumatic mitral (valve) insufficiency; Z79.51 Long term (current) use of inhaled steroids
CPT/HCPCS: 36415; 70450; 70496; 70498; 70553; 71045; 71260; 80053; 81003; 83735; 84443; 84484; 85025; 85610; 93005; 93306; 96374; 97116; 97161; 97530; 99285; A9579; G0378; J2405; Q9967

== ENCOUNTER 2020-12-08 13:02 | Outpatient (CLI) | payer MEDICARE, MEDICAID, SELFPAY ==
--- NOTE | 2020-12-08 15:15 | ONC FU_ITS ---
Dr. Gonzalez follow up note Patient: Junior Rambo Unit #: [id number]: 1945 Dicatated By: Lisette Gonzalez M.D.Date of Visit:Dec 08, 2020 Onc Med Follow-up/Prog Note History of Present Illness: Mr. Ricks is a 75-year-old gentleman who presented to his primary care with rectal bleeding. He denied abdominal or pelvic pain. He had no diarrhea or constipation or nausea or vomiting. He did have colonoscopy on 08/25/2018. It revealed a friable mass involving the posterior wall the rectum about 4 cm from the anal verge which was biopsied. A 5 mm pedunculated polyp in the sigmoid colon and another 5 mm sessile polyp in the ascending colon were removed. Pathology showed the distal rectal mass was moderately differentiated infiltrating adenocarcinoma. The sigmoid and ascending colon polyps were hyperplastic and adenomatous polyp respectively. Staging CT of the abdomen pelvis on 08/13/2018 revealed an irregular thickened/nodular distal rectum. CT of the chest abdomen pelvis on 08/24/2018 showed a right medial upper lobe subpleural 9.7 mm nodular focus with possible extension to the anterior mediastinal fat. Neoplastic process was not entirely excluded. Otherwise there was no definite evidence of metastasis in the chest abdomen pelvis. He did undergo MRI of the pelvis on 09/14/2017. It showed a circumferential rectal mass which appears to have a microscopic invasion through the muscularis both laterally as well as posteriorly. This mass abuts and appears to involve the upper aspect of the sphincter posteriorly as well as anterolaterally on the right. There are mildly enlarged adjuvant mesorectal and upper presacral lymph node suspicious for metastasis. Mr. Ricks was evaluated by Dr. Short in [place]. It was recommended that he pursue neoadjuvant chemoradiation followed by surgical resection. Mr. Ricks has been evaluated by Dr. Scherer in radiation oncology also advised that he pursue chemotherapy with Xeloda. Completed neoadjuvant combined chemoradiation with oral Xeloda on 11/20/2018 Patient has advanced stage emphysema/COPD on continuous oxygen and has long-standing history of smoking and still smoking about pack a day. His last transfusion service was on 10/05/2018 for hemoglobin of 7.9. Thus far his hemoglobin is holding it is 9.9. I did do iron studies on him last week and he is iron saturation is 62%. Follow-up CT scan of chest done on 12/04/2018 showed left lower lobe lung mass measured 1.8 x 1.1 cm. Bilateral lower lobe pulmonary parenchymal nodule stable from 08/24/2018 Patient was referred to log chipper Dr. Jiang in [place] for navigational bronchoscopy with biopsy,Which was done on 01/19/2019 and bronchial wash showed no malignant cells. And BAL, l left lower lobe showed no malignant cells and casts bronchial biopsy of left lower lobe lesion showed no malignancy negative for granuloma Severe chronic emphysema on home o2 Dr. Scherer radiation oncologist did order CT PET scan which was done on 12/16/2018 and it confirmed left lower lobe nodule measuring 1.4 x 1.5 cm with SUV of 7.3 but no other pulmonary nodule uptake seen Mild activity at the rectum has SUV of 4.2 which shows improvement. follow up with Dr. Read on 01/01/2019 .And his impression was the distal rectal cancer feeling much smaller after chemoradiation now mainly and ulcer, suspect some tumor cell persist. And being so distal makes a traditional cancer operation necessarily involve complete rectal removal with permanent colostomy and And transanal excision always an option but not as good of a cancer operation and might heal poorly given prior radiation And additional chemotherapy may shrink tumor further.As per patient Dr. Short, took some sample from his rectal lesion and he was informed that chemoradiation therapy has destroyed the tumor and no further treatment needed rather follow-up every 3 months for 2 years patient went to see him probably couple of times then quit going back on his own and he never came back to see us since his last visit in 2019. Patient was admitted to hospital on December 03, 2020 with aphasia, facial droop and also noted to have new onset of atrial fibrillation with slow ventricular response on presentation. CT angiogram of head and neck showed 60 to 70% stenosis of very short segment of petrous portion of left internal carotid artery., His aphasia symptoms resolved quite well and returned to baseline MRI scan of the brain was done which showed no evidence of brain mets or acute CVA patient also had CT scan of chest done on December 02, 2020 which showed spiculated 3.3 x 4.5 x 3.2 cm mass in the left lower lobe with scarring and retraction of adjacent lung. The mass extends to the end retracts the fissure on the left and there is extension inferiorly towards the left pleural surface with a 9 mm size subpleural satellite nodule worrisome for additional malignancy. Extensive emphysema bilaterally and also showed a small left paratracheal lymph node measuring up to 10 x 12 mm slightly more prominent than previous exam and there is a moderate left pleural effusion. Patient denies any bony pains occasionally hemoptysis but no weight loss appetite is good no shortness of breath at rest although patient is on chronic home oxygen. Denies any jaundice. Denies any focal weakness. Again as mentioned above patient underwent left lung bronchoscopy on January 19, 2019 in [place] and BAL showed no evidence of malignancy. Medications: Albuterol Sulfate ((2.5 mg/3ml) 0.083%) Nebulization solution Inhalation, Budesonide Suspension Inhalation, Ventolin HFA 1 puff(s) (of 108 (90 base) mcg/act) Aerosol, solution Inhalation PRN Allergies: Penicillins Review of Systems: Review of Systems is not available for this patient. Vital Signs: Vitals are not available for this patient. Performance Status: 1 - No physically strenuous activity, but ambulatory and able to carry out light or sedentary work (e.g. office work, light house work). (ECOG) Physical Examination: ENMT - No mouth sores, no thrush, no jaundice, Respiratory - Poor air entry otherwise clear, Cardiovascular - Regular rate and rhythm of heart, Abdomen - Soft, bowel sounds present, Extremities - No visible edema. 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 Right medial upper lobe subpleural 9.7 mm nodular focus with possible extension into the anterior mediastinal fat. Neoplastic process is not entirely excluded. No lymphadenopathy otherwise CT scan of abdomen pelvis shows rectal wall nodule thickening, no evidence of metastatic disease in the abdomen or pelvis. MRI scan of the pelvis done on 09/14/2018 showed circumferential no rectal mass which appears to demonstrate microscopic invasion through the muscularis both laterally as well as posteriorly. Additionally, this mass abuts and appears to involve the upper aspect of sphincter posteriorly as well as anterior laterally on the right. There are some mildly enlarged adjacent mesorectal and upper presacral lymph nodes associated with these findings. Clinical stage T2-3,Nx,Mx discussed with Mr Ricks his disease status and treatment options which include neoadjuvant chemoradiation with oral Xeloda. Considering his age and comorbid condition, recommended Xeloda 825 mg/m2 by mouth twice a day 5 days a week concurrent with radiation therapy. He began chemoradiation on 10/11/2018.And concluded on 11/20/2018 follow-up CT scan of chest done on 12/04/2018 showed persistent left lower lobe mass measuring 1.8 x 1.1 cm and bilateral lower lobe pulmonary parenchymal nodules stable from 08/24/2018 Dr. Scherer, did order CT PET scan which was done on 12/16/2018 and it confirmed 1.4 x 1.5 cm left lower lobe nodule with SUV of 7.3 and mild activity at the rectum has SUV of 4.2 shows improvement.Underwent navigational bronchoscopy on 01/19/2019 and bronchial washing and BAL of left lower lobe and transbronchial biopsy, none of them showed malignancy. Was seen by Dr. Short on 01/01/2019 and his evaluation/recommendation was, tumor appears much smaller, mainly ulcer, suspect some tumor cells persist being so distal rectal cancer, APR with permanent colostomy is under consideration Transanal excision is an other option but but not as good as traditional approach, and might heal poorly given prior radiation. Additional chemotherapy may shrink tumor further., As per patient Dr. Short need biopsy from his rectal ulcer and told him that he had very good response to chemoradiation no further treatment needed rather follow-up every 3 months for 2 years Advanced stage COPD/emphysema on home oxygen Long-standing history of smoking- still active. Plan: Discussed with patient regarding his progressive left lower lobe lung mass seen on CT scan of chest done on December 02, 2020 which showed 3.3 x 4.5 x 3.2 cm mass in left lower lobe and there was additional left pleural surface mass size about 9 mm could be satellite lesion and 10 x 12 mm small left paratracheal lymph node, left pleural effusion. In January 2019, patient underwent left bronchoscopy for 1.4 x 1.5 cm mass seen on CT PET scan and bronchial washings showed no evidence of malignancy, clinically it appears patient has progressive left lower lobe lung mass which is, clinically consistent with malignancy, at this point will consider CT PET scan and also refer him to pulmonology for evaluation bronchoscopy/transbronchial biopsy or transthoracic biopsy. Patient return to clinic after CT PET scan/pulmonary evaluation for further discussion As for the rectal cancer is concerned,Lab work-up done recently during hospitalization showed LFTs within normal range and CBC was also normal range as white blood count 8.4 hemoglobin 12.1 hematocrit 38 platelets 206,000 As far as episode of TIA/aphasia is concerned patient has significantly left carotid artery disease for which he is being referred to Dr. Rojas and Dr. Villalta patient has no new signs symptoms and he never came back after his visit after completion of chemoradiation therapy and he was following with Dr. Criss anderson in [place] but for brief period ., We will review his CT PET scan which is being scheduled for left lung mass and then plan accordingly Signed By: Lisette Gonzalez M.D. <<Signature on File>>
== END 2020-12-08 13:03 | disposition home or self-care (01) ==
LOC: ONCMED 13:05
PROVIDERS: PCP Nurse Practitioner Family; Visit Provider Internal Medicine Hematology & Oncology
DX: C20 Malignant neoplasm of rectum (principal); R91.8 Other nonspecific abnormal finding of lung field; J43.9 Emphysema, unspecified; F17.210 Nicotine dependence, cigarettes, uncomplicated; I25.10 Atherosclerotic heart disease of native coronary artery without angina pectoris; I69.320 Aphasia following cerebral infarction; Z92.21 Personal history of antineoplastic chemotherapy; Z99.81 Dependence on supplemental oxygen; Z92.3 Personal history of irradiation
CPT/HCPCS: 99214

== ENCOUNTER → 2021-01-01 10:56 | Outpatient (BNVA) | payer MEDICARE, MEDICAID, SELFPAY | PROVIDERS: PCP Nurse Practitioner Family; Visit Provider Internal Medicine Critical Care Medicine | DX: R91.8 Other nonspecific abnormal finding of lung field (principal) | CPT/HCPCS: 87635 ==

== ENCOUNTER 2021-01-06 05:42 | Day surgery (SDC) | payer MEDICARE, MEDICAID, SELFPAY ==
[2021-01-05 13:19] VITALS: BMI 24.3
[2021-01-06] VITALS (7 sets, daily range): BP systolic 118–150; BP diastolic 66–97; PULSE 64–79; RESP 12–18; TEMP 36.1–36.6; O2SAT 92–96
--- NOTE | 2021-01-06 | CT_ITS ---
Guided Bronchoscopy Planning CT images; total exam DLP: 921.16 mGy-cm MTDD
[2021-01-06] MEDS: metoprolol tartrate 25 mg Tablet PO (06:35)
--- NOTE | 2021-01-06 06:37 | W.PM.OPSUD ---
Surgery/Procedure H&P Update DATE OF PROCEDURE: January 06, 2021 DATE H&P PERFORMED: 12/29/20 H&P UPDATE INFORMATION: I have reviewed H&P completed within last 30 days, I have examined patient prior to procedure and No changes to prior documentation PREOP DIAGNOSIS: Suspected lung cancer PLANNED PROCEDURE: Bronchoscopy inspection of the airway, possible endobronchial biopsy, navigational bronchoscopy guided transbronchial biopsies of the left lower lobe lung mass, fine-needle aspiration, Cytobrush, endobronchial ultrasound-guided transbronchial needle aspiration of lymph nodes and control of bleeding Operation Date: 01/06/21 07:00 Proposed Procedures p Veran [id number] R91.8(Not Applicable) - Nova Calderon MD s Ebus(Not Applicable) - Nova Calderon MD
--- NOTE | 2021-01-06 06:55 | ANES.PREANE2 ---
Pre-Anesthetic Assessment Pre-Anesthetic Assessment: Height/Weight: Height 1.73 m Weight 72.575 kg Temp Pulse Resp BP Pulse Ox 97.4 F L 76 16 141/71 96 01/06/21 06:16 01/06/21 06:16 01/06/21 06:16 01/06/21 06:16 01/06/21 06:16 Preop Diagnosis: Suspected lung cancer Proposed Procedure: Operation Date: 01/06/21 07:00 Proposed Procedures p Verhenrik [id number] R91.8(Not Applicable) - Nova Calderon MD s Ebus(Not Applicable) - Nova Calderon MD Was Beta Song taken within 24 hours: Yes Was Clonidine taken within 24 hours: N/A Last intake: Intake Last Liquid Date 01/05/21 Last Liquid Time 21:00 Last Solid Date 01/05/21 Last Solid Time 17:00 Social: Social History: Tobacco and No alcohol Exam: Pre-Anes Outpt Exam: alert and oriented x 3 Additional Exam Findings (including area of procedure): Irregular, wheezing, decreased BBS Airway: Submandibular: WNL Cervical ROM: WNL MP: 2 Dentition: False Pulmonary: Pulmonary: COPD Comments: Home O2 CV/HEM: CV/HEM: Afib, Anemia, Arrythmia, CAD and Murmur (Mild MR) Comments: normal EF GI: GI: GERD Anesthetic Plan: ASA status: 3 Risk of > 500 ml blood loss (7ml/kg in children): No PFSH Anesthesia PFSH: Medical History Abnormal colonoscopy Cardiomyopathy Colon polyps COPD (chronic obstructive pulmonary disease) Rectal bleed Rectal mass adenocarcinoma Smoker Surgical History H/O hernia repair Family History Daughter No problems noted. Brother Cancer colon cancer Social History Smoking and tobacco status: current every day smoker cigarettes Packs smoked per day: 1 Years cigarettes smoked: 60 Quit status (tobacco): considering quitting Second hand smoke exposure: Yes Smoking risk assessment/counseling performed?: Yes Alcohol intake: never Caregiver/support person: Yes Lives independently: Yes Household members: family Housing: House Marital status: / service: No Current occupational status: retired Pets and animals: No History of recent travel: No Current gender identity: Male Data Anesthesia Cardiac Studies: No Data to Display
[2021-01-06] MEDS: sodium chloride 0.9% 1,000 ML 30 ML IV (07:10)
[2021-01-06] MEDS: lidocaine 2% INJ 20 mL INJECTION (08:25)
[2021-01-06] MEDS: EPINEPHrine 1 mg/mL INJ XX (08:38)
--- NOTE | 2021-01-06 08:44 | PM.OP ---
Operative Report Date of procedure: January 06, 2021 Pre-op Diagnosis: Suspected lung cancer Post-op diagnosis: same Brief History: This is 75-year-old gentleman with left lower lobe lung mass coming in for bronchoscopic evaluation. Procedure: Name of the procedure: Bronchoscopy with inspection of the airway, bronchoalveolar lavage, navigational bronchoscopy guided transbronchial biopsies, fine-needle aspiration, endobronchial ultrasound-guided transbronchial needle aspiration of lymph nodes and control of bleeding. Indication: Suspected lung cancer Anesthesia: General anesthesia. Local anesthesia: The gary in the right and left mainstem bronchi were anesthetized with 1% lidocaine, 3 mL. Description of the procedure: The procedure was explained to the patient and the consent was obtained. The patient was brought to the OR. The patient underwent endotracheal intubation for general anesthesia. Following induction of general anesthesia, the bronchoscope was advanced through the ET tube. The lower trachea appeared to be normal. The gary was sharp. The gary, the right and left mainstem bronchi are anesthetized with 1% lidocaine. In a systematic manner bilateral bronchial tree was then examined. The bronchoscope was advanced into the left mainstem bronchus. The left upper lobe, lingula and left lower lobe bronchi were examined up to the third subsegmental level and no abnormalities were identified. There is no endobronchial lesion, active bleeding or mucous plug. The bronchoscope was then introduced into the right mainstem bronchus. The right upper lobe, right middle lobe and right lower lobe bronchi were examined up to the third subsegmental level and no abnormalities were identified. Using navigational bronchoscopy transbronchial biopsies and fine-needle aspirations were obtained from the left lower lobe lung mass. Multiple samples were obtained. Bronchoalveolar lavage was performed from the superior segment of left lower lobe. 60 cc of fluid was instilled, fluid return was 27 mL. The fluid was bloody. The endobronchial ultrasound was introduced through the ET tube. The left lower lobe mass was identifiable. Fine-needle aspiration was performed again from the left lower lobe lung mass. Subcarinal and left hilar lymph node sampling by FNA was also performed. The patient had grade 2 bleeding which was controlled with cold saline and diluted epinephrine. Samples: 1. Bronchoalveolar lavage specimen was sent for cytology. 2. Transbronchial biopsies are sent for histopathology. 3. The fine-needle aspiration of the left lower lobe lung mass was sent for histopathology. 4. The transbronchial needle aspiration of the aforementioned lymph node groups were sent for histopathology. Complications: There was mild to moderate bleeding which was controlled with cold saline and diluted epinephrine. Chest x-ray: Pending
--- NOTE | 2021-01-06 08:46 | XRR_ITS ---
PROCEDURE INFORMATION: Exam: XR Chest Exam date and time: 01/06/2021 8:58 AM Age: 75 years old Clinical indication: Device placement; Other: Post bronch; Prior surgery; Surgery date: Post-operative (0-2 days); Additional info: Post ebus/bronch TECHNIQUE: Imaging protocol: XR of the chest. Views: 1 view. COMPARISON: 1. CT chest w con* [id number] 12/02/2020 11:08 PM 2. CR XR chest 1V portable [id number] 12/02/2020 9:46:42 PM FINDINGS: Lungs: Again noted is a spiculated mass in the left mid lung zone that measures about 4.5 cm in diameter. It has increased in density and appears to become more solid in compared to old chest x-ray from 12/02/2020. There is extensive bilateral pulmonary emphysema and fibrosis. Pleural spaces: Unremarkable. No pleural effusion. No pneumothorax. Heart/Mediastinum: Unremarkable. No cardiomegaly. Bones/joints: Unremarkable. XR/XR chest 1V portable [id number] IMPRESSION: 1. The spiculated mass in the left mid lung zone is again noted and has become denser and probably more solid than on previous study. 2. Extensive pulmonary emphysema and fibrosis.
--- NOTE | 2021-01-06 08:58 | P.PCN_ITS ---
PACU note PACU note: VSS, Good respiratory effort, report to HOUSEKEEPING/LAUNDRY Post-Anesthesia Exam: awake
--- NOTE | 2021-01-06 08:58 | PM.PACU ---
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
--- NOTE | 2021-01-06 14:59 | ANE.PACU2 ---
Inpatient post-anesthesia follow up: Airway intact: Yes Vital signs: Temperature 98 F Pulse Rate 71 Respiratory Rate 17 Blood Pressure 118/73 Pulse Oximetry 94 Oxygen Delivery Me thod Nasal Cannula Oxygen Flow Rate 4.0 Fraction of Inspir ed Oxygen Hydration adequate: Yes Nausea and vomiting: No Pain level: 1 Mental status: Baseline
[2021-01-19 06:55] LABS: PD-L1 (Clone 22C3) by IHC BBPL See Report
== END 2021-01-06 10:00 | disposition home or self-care (01) ==
PROVIDERS: PCP Nurse Practitioner Family; Visit Provider Internal Medicine Critical Care Medicine
PROC: 0BJ08ZZ Inspection of Tracheobronchial Tree, Via Natural or Artificial Opening Endoscopic (ICD-10-PCS; CPT 31622; principal; 2021-01-06 07:00)
PROC: BB4BZZZ Ultrasonography of Pleura (ICD-10-PCS; 2021-01-06 07:00)
PROC: 0BJ08ZZ Inspection of Tracheobronchial Tree, Via Natural or Artificial Opening Endoscopic (ICD-10-PCS; CPT 31622; 2021-01-06 07:00)
DX: C34.90 Malignant neoplasm of unspecified part of unspecified bronchus or lung (principal); J44.9 Chronic obstructive pulmonary disease, unspecified; Z99.81 Dependence on supplemental oxygen; I48.91 Unspecified atrial fibrillation; I25.10 Atherosclerotic heart disease of native coronary artery without angina pectoris; K21.9 Gastro-esophageal reflux disease without esophagitis; F17.210 Nicotine dependence, cigarettes, uncomplicated; Z79.82 Long term (current) use of aspirin
CPT/HCPCS: 31625; 31627; 31652; 71045; 77011; 80500; 88305; 88309; 88342; J0171; J0330; J2405; J2704; J3010; J7030

== ENCOUNTER 2021-01-14 13:33 | Outpatient (CLI) | payer MEDICARE, MEDICAID, SELFPAY ==
[2021-01-14 14:11] LABS: Basophils # 0.1 10^3/uL (0.0-0.1); Basophils % 0.7 %; Eosinophils # 0.2 10^3/uL (0.0-0.8); Eosinophils % 2.5 %; Hematocrit 41.3 % (42.0-52.0); Hemoglobin 12.9 g/dL (11.7-16.6); Lymphocytes # 0.8 10^3/uL (0.8-4.8); Mean Corpuscular HGB Conc 31.2 g/dL (30.0-36.0); Mean Corpuscular Hemoglobin 29.7 pg (28.0-34.0); Mean Corpuscular Volume 94.9 fL (80-94); Mean Platelet Volume 9.3 fL (7.4-10.4); Monocytes # 0.9 10^3/uL (0.2-0.9); Monocytes % 11.9 %; Neutrophils # 5.55 10^3/uL (1.8-7.7); Neutrophils % 74.2 %; Nucleated Red Blood Cells % 0 %; Platelet Count 210 10^3/cmm (130-400); Red Blood Count 4.35 10^6/uL (4.1-5.3); Red Cell Distribution Width 14.2 % (12.1-15.1); White Blood Count 7.5 10^3/uL (4.0-10.0)
[2021-01-14 14:38] LABS: Alanine Aminotransferase 10 U/L (0-41); Albumin Level 4.1 g/dL (3.5-5.2); Alkaline Phosphatase 88 IU/L (40-130); Anion Gap 10.5 (5-19); Aspartate Amino Transferase 18 U/L (0-40); Blood Urea Nitrogen 19 mg/dL (8-23); Calcium 9.1 mg/dL (8.5-10.5); Carbon Dioxide 34 mmol/L (22-29); Chloride 101 mmol/L (98-107); Globulin 3.6 g/dL (1.3-4.6); Glucose 100 mg/dL (65-115); Osmolality Calculated 294 mOsm/kg (285-295); Potassium 4.5 mmol/L (3.5-5.1); Sodium 141 mmol/L (136-145); Total Bilirubin 0.4 mg/dL (0.15-1.2); Total Protein 7.7 g/dL (6.6-8.7)
--- NOTE | 2021-01-14 15:42 | ONC FU_ITS ---
Dr. Gonzalez follow up note Patient: Junior Rambo Unit #: [id number]: 1945 Dicatated By: Lisette Gonzalez M.D.Date of Visit:January 14, 2021 Onc Med Follow-up/Prog Note History of Present Illness: Mr. Ricks is a 75-year-old gentleman who presented to his primary care with rectal bleeding. He denied abdominal or pelvic pain. He had no diarrhea or constipation or nausea or vomiting. He did have colonoscopy on 08/25/2018. It revealed a friable mass involving the posterior wall the rectum about 4 cm from the anal verge which was biopsied. A 5 mm pedunculated polyp in the sigmoid colon and another 5 mm sessile polyp in the ascending colon were removed. Pathology showed the distal rectal mass was moderately differentiated infiltrating adenocarcinoma. The sigmoid and ascending colon polyps were hyperplastic and adenomatous polyp respectively. Staging CT of the abdomen pelvis on 08/13/2018 revealed an irregular thickened/nodular distal rectum. CT of the chest abdomen pelvis on 08/24/2018 showed a right medial upper lobe subpleural 9.7 mm nodular focus with possible extension to the anterior mediastinal fat. Neoplastic process was not entirely excluded. Otherwise there was no definite evidence of metastasis in the chest abdomen pelvis. He did undergo MRI of the pelvis on 09/14/2017. It showed a circumferential rectal mass which appears to have a microscopic invasion through the muscularis both laterally as well as posteriorly. This mass abuts and appears to involve the upper aspect of the sphincter posteriorly as well as anterolaterally on the right. There are mildly enlarged adjuvant mesorectal and upper presacral lymph node suspicious for metastasis. Mr. Ricks was evaluated by Dr. Short in [place]. It was recommended that he pursue neoadjuvant chemoradiation followed by surgical resection. Mr. Ricks has been evaluated by Dr. Scherer in radiation oncology also advised that he pursue chemotherapy with Xeloda. Completed neoadjuvant combined chemoradiation with oral Xeloda on 11/20/2018 Patient has advanced stage emphysema/COPD on continuous oxygen and has long-standing history of smoking and still smoking about pack a day. His last transfusion service was on 10/05/2018 for hemoglobin of 7.9. Thus far his hemoglobin is holding it is 9.9. I did do iron studies on him last week and he is iron saturation is 62%. Follow-up CT scan of chest done on 12/04/2018 showed left lower lobe lung mass measured 1.8 x 1.1 cm. Bilateral lower lobe pulmonary parenchymal nodule stable from 08/24/2018 Patient was referred to office helper Dr. Jiang in [place] for navigational bronchoscopy with biopsy,Which was done on 01/19/2019 and bronchial wash showed no malignant cells. And BAL, l left lower lobe showed no malignant cells and casts bronchial biopsy of left lower lobe lesion showed no malignancy negative for granuloma Severe chronic emphysema on home o2 Dr. Scherer radiation oncologist did order CT PET scan which was done on 12/16/2018 and it confirmed left lower lobe nodule measuring 1.4 x 1.5 cm with SUV of 7.3 but no other pulmonary nodule uptake seen Mild activity at the rectum has SUV of 4.2 which shows improvement. follow up with Dr. Short on 01/01/2019 .And his impression was the distal rectal cancer feeling much smaller after chemoradiation now mainly and ulcer, suspect some tumor cell persist. And being so distal makes a traditional cancer operation necessarily involve complete rectal removal with permanent colostomy and And transanal excision always an option but not as good of a cancer operation and might heal poorly given prior radiation And additional chemotherapy may shrink tumor further.As per patient Dr. Short, took some sample from his rectal lesion and he was informed that chemoradiation therapy has destroyed the tumor and no further treatment needed rather follow-up every 3 months for 2 years patient went to see him probably couple of times then quit going back on his own and he never came back to see us since his last visit in 2019. Patient was admitted to hospital on December 03, 2020 with aphasia, facial droop and also noted to have new onset of atrial fibrillation with slow ventricular response on presentation. CT angiogram of head and neck showed 60 to 70% stenosis of very short segment of petrous portion of left internal carotid artery., His aphasia symptoms resolved quite well and returned to baseline MRI scan of the brain was done which showed no evidence of brain mets or acute CVA patient also had CT scan of chest done on December 02, 2020 which showed spiculated 3.3 x 4.5 x 3.2 cm mass in the left lower lobe with scarring and retraction of adjacent lung. The mass extends to the end retracts the fissure on the left and there is extension inferiorly towards the left pleural surface with a 9 mm size subpleural satellite nodule worrisome for additional malignancy. Extensive emphysema bilaterally and also showed a small left paratracheal lymph node measuring up to 10 x 12 mm slightly more prominent than previous exam and there is a moderate left pleural effusion. Patient denies any bony pains occasionally hemoptysis but no weight loss appetite is good no shortness of breath at rest although patient is on chronic home oxygen. Denies any jaundice. Denies any focal weakness. Again as mentioned above patient underwent left lung bronchoscopy on January 19, 2019 in [place] and BAL showed no evidence of malignancy. CT PET scan was done on December 13, 2020 showed left lower lobe, spiculated mass measuring 5.4 x 3.2 cm SUV 16.8., Along with 2 subpleural nodules are subcentimeter in size with minimal FDG activity these are suspicious for local satellite lesions., Multiple radiographically benign mediastinal lymph node have typical reactive appearance. No other abnormality seen., Left pleural effusion. 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 Came for follow-up denies any specific complaints, no fever chills, no nausea or vomiting, no diarrhea constipation no hemoptysis hematemesis, patient on home oxygen and smoking about half pack a day. Medications: Albuterol Sulfate ((2.5 mg/3ml) 0.083%) Nebulization solution Inhalation, Budesonide Suspension Inhalation, Ventolin HFA 1 puff(s) (of 108 (90 base) mcg/act) Aerosol, solution Inhalation PRN Allergies: Penicillins Review of Systems: Review of Systems is not available for this patient. Vital Signs: Performed on January 14, 2021 15:01 Height - 68 in (HIGH) Weight - 157.4 lbs (LOW) BSA - 1.85 sq.m BMI - 23.93 Temperature - 97.3 F (LOW) Pulse - 103 /min (HIGH) Respiration - 20 /min BP - 166/77 mm(hg) (HIGH) O2 Sat - 90 % (LOW) Pain - 0 Performance Status: 1 - No physically strenuous activity, but ambulatory and able to carry out light or sedentary work (e.g. office work, light house work). (ECOG) Physical Examination: ENMT - No mouth sores, no thrush, no jaundice, Respiratory - Poor air entry otherwise clear, Cardiovascular - Regular rate and rhythm of heart, Abdomen - Soft, bowel sounds present, Extremities - No visible edema or rash. Lab/Imaging: Test performed on Dec 03, 2020 21:59 WBC 8.4 10^3/uL RBC 3.98 10^6/uL HGB 12.1 g/dL HCT 38.0 % MCV 95.5 fl MCH 30.4 pg MCHC 31.8 g/dL RDW 15.2 % Platelet Count 206 10^3/uL MPV 9.3 fl Neutrophils 6.94 10^3/uL Lymphocytes 0.6 10^3/uL Monocytes 0.6 10^3/uL Eosinophils 0.1 10^3/uL Basophils 0.0 10^3/uL Neutrophil % 83.2 % Lymphocyte % 6.9 % Monocyte % 7.5 % Eosinophil % 1.3 % Basophils % 0.5 % NRBC 0.0 /100 WBC NRBC % 0 % Impression: Non-small cell carcinoma, favor primary pulmonary mucinous adenocarcinoma per endobronchial ultrasound-guided needle aspiration of left lower lobe mass done on January 06, 2021, station 7 and station 11 lymph nodes endobronchial ultrasound-guided FNA came back negative, CT PET scan done on January 12, 2021 showed in the left lower lobe, there is a spiculated mass measuring 5.4 x 3.2 cm SUV of 16.8, 2 subpleural nodules are subcentimeter in size with minimal FDG activity, suspicious for local satellite lesions e.g. T3 lesion versus metastatic, immunohistochemistry stains are pending to confirm primary versus metastatic disease. Moderately differentiated Infiltrating adenocarcinoma of the rectum per colonoscopy/biopsy done on 08/22/2018 CT scan of the chest abdomen pelvis done on 08/24/2018 showed advanced emphysema with right upper and bilateral lower lobe bullous and bleb emphysematous changes. Right medial upper lobe subpleural 9.7 mm nodular focus with possible extension into the anterior mediastinal fat. Neoplastic process is not entirely excluded. No lymphadenopathy otherwise CT scan of abdomen pelvis shows rectal wall nodule thickening, no evidence of metastatic disease in the abdomen or pelvis. MRI scan of the pelvis done on 09/14/2018 showed circumferential no rectal mass which appears to demonstrate microscopic invasion through the muscularis both laterally as well as posteriorly. Additionally, this mass abuts and appears to involve the upper aspect of sphincter posteriorly as well as anterior laterally on the right. There are some mildly enlarged adjacent mesorectal and upper presacral lymph nodes associated with these findings. Clinical stage T2-3,Nx,Mx discussed with Mr Ricks his disease status and treatment options which include neoadjuvant chemoradiation with oral Xeloda. Considering his age and comorbid condition, recommended Xeloda 825 mg/m2 by mouth twice a day 5 days a week concurrent with radiation therapy. He began chemoradiation on 10/11/2018.And concluded on 11/20/2018 follow-up CT scan of chest done on 12/04/2018 showed persistent left lower lobe mass measuring 1.8 x 1.1 cm and bilateral lower lobe pulmonary parenchymal nodules stable from 08/24/2018 Dr. Scherer, did order CT PET scan which was done on 12/16/2018 and it confirmed 1.4 x 1.5 cm left lower lobe nodule with SUV of 7.3 and mild activity at the rectum has SUV of 4.2 shows improvement.Underwent navigational bronchoscopy on 01/19/2019 and bronchial washing and BAL of left lower lobe and transbronchial biopsy, none of them showed malignancy. Was seen by Dr. Short on 01/01/2019 and his evaluation/recommendation was, tumor appears much smaller, mainly ulcer, suspect some tumor cells persist being so distal rectal cancer, APR with permanent colostomy is under consideration Transanal excision is an other option but but not as good as traditional approach, and might heal poorly given prior radiation. Additional chemotherapy may shrink tumor further., As per patient Dr. Short need biopsy from his rectal ulcer and told him that he had very good response to chemoradiation no further treatment needed rather follow-up every 3 months for 2 years Advanced stage COPD/emphysema on home oxygen Long-standing history of smoking- still active. 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, case was discussed with pathology regarding whether we are dealing with a primary lung cancer versus metastatic disease as patient has history of colorectal cancer which was diagnosed in August 2018., As per pathology special immunohistochemistry stains are pending to verify whether we are dealing with a primary lung cancer or metastatic disease, but transbronchial biopsy from left lower lobe mass confirmed malignancy In that case, we will consider Port-A-Cath placement and if non-small cell lung cancer is confirmed, then will consider MRI scan of the head to complete staging work-up and if it shows no mets then patient has T3 lesion because of subcentimeter pleural nodules in same lobe and N0 disease based on CT PET scan done we will consider combined chemoradiation on the other hand if metastatic rectal cancer is confirmed in that case we will consider systemic chemotherapy upfront and if patient has good response with no evidence of metastatic disease, may consider local radiation therapy. Patient will return to clinic in 1 week with CBC CMP and CEA for further discussion. Hopefully by that time will have final pathology report.^, Patient was advised to quit smoking and was offered any assistance he may need] Signed By: Lisette Gonzalez M.D. <<Signature on File>>
[2021-01-14 22:06] LABS: Carcinoembryonic Antigen 48.3 ng/mL (0.0-4.7)
== END 2021-01-14 13:34 | disposition home or self-care (01) ==
LOC: ONCMED 13:36
PROVIDERS: PCP Nurse Practitioner Family; Visit Provider Internal Medicine Hematology & Oncology
DX: C20 Malignant neoplasm of rectum (principal); C78.02 Secondary malignant neoplasm of left lung; C78.01 Secondary malignant neoplasm of right lung; J43.9 Emphysema, unspecified; Z99.81 Dependence on supplemental oxygen; F17.210 Nicotine dependence, cigarettes, uncomplicated; Z79.899 Other long term (current) drug therapy
CPT/HCPCS: 36415; 80053; 82378; 85025; 99214

== ENCOUNTER → 2021-01-22 10:26 | Outpatient (BNVA) | payer MEDICARE, MEDICAID, SELFPAY | PROVIDERS: PCP Nurse Practitioner Family; Visit Provider Internal Medicine Critical Care Medicine | DX: R91.8 Other nonspecific abnormal finding of lung field (principal); J44.9 Chronic obstructive pulmonary disease, unspecified; C20 Malignant neoplasm of rectum | CPT/HCPCS: 87635 ==

== ENCOUNTER 2021-01-28 06:35 | Day surgery (SDC) | payer MEDICARE, MEDICAID, SELFPAY ==
[2021-01-27 17:37] VITALS: BMI 24.3
--- NOTE | 2021-01-28 | SCC_ITS ---
Procedure Done: 1. Placement of PowerPort in the right internal jugular vein 2. Fluoroscopic guidance and interpretation for placement of catheter 3. Ultrasound guidance to access the right internal jugular vein 24.1 seconds of fluoroscopic guidance, for a cumulative dose of 1.99 mGy, was provided to Dr. Bianchi by the radiology department. C-arm images of the chest were saved for the patient's permanent record. [facility]OSPITALAdriana
[2021-01-28 06:51] VITALS: BP 146/70; PULSE 100; RESP 18; TEMP 36.7; O2SAT 96
--- NOTE | 2021-01-28 07:11 | W.PM.OPSUD ---
Surgery/Procedure H&P Update DATE OF PROCEDURE: January 28, 2021 DATE H&P PERFORMED: 01/19/21 H&P UPDATE INFORMATION: I have reviewed H&P completed within last 30 days, I have examined patient prior to procedure and No changes to prior documentation PREOP DIAGNOSIS: Rectal cancer PLANNED PROCEDURE: Operation Date: 01/28/21 08:00 Proposed Procedures p Portacath Placement 19978 C20(Not Applicable) - Tye Bianchi MD
[2021-01-28] MEDS: sodium chloride 0.9% 1,000 ML 30 ML IV (07:15)
[2021-01-28] MEDS: vancomycin 1,000 MG in sodium chloride 0.9% 250 ML 250 MG IV (07:16)
--- NOTE | 2021-01-28 07:39 | ANES.PREANE2 ---
Pre-Anesthetic Assessment Pre-Anesthetic Assessment: Height/Weight: Height 1.73 m Weight 72.575 kg Temp Pulse Resp BP Pulse Ox 98.1 F 100 18 146/70 96 01/28/21 06:51 01/28/21 06:51 01/28/21 06:51 01/28/21 06:51 01/28/21 06:51 Preop Diagnosis: Rectal cancer Proposed Procedure: Operation Date: 01/28/21 08:00 Proposed Procedures p Portacath Placement 28877 C20(Not Applicable) - Tye Bianchi MD Familial anesthetic complications: NOne Was Beta Song taken within 24 hours: N/A Was Clonidine taken within 24 hours: N/A Last intake: Intake Last Liquid Date 01/27/21 Last Liquid Time 21:00 Last Solid Date 01/27/21 Last Solid Time 21:00 Social: Social History: Tobacco and No alcohol Exam: Pre-Anes Outpt Exam: alert, oriented x 3 and regular rate & rhythm Additional Exam Findings (including area of procedure): diminished Airway: Cervical ROM: WNL MP: 2 Dentition: False Pulmonary: Pulmonary: COPD (3 l nc continously) CV/HEM: CV/HEM: Afib, Anemia and CAD Comments: 12/24 echo mild MR, normal EF Neuropsych: Neuropsych: TIA (now only on ASA) Comments: b/l carotid stenosis Anesthetic Plan: ASA status: 4 Anesthesia: MAC Risk of > 500 ml blood loss (7ml/kg in children): No Meds/Allergies Current Medications: Current Medications Generic Name Dose Route Start Last Admin Trade Name Freq PRN Reason Stop Dose Admin Vancomycin HCl 1,0 00 mg/ 250 mls @ 250 mls /hr 01/28/21 06:42 01/28/21 07:16 Sodium Chloride IV 01/28/21 07:41 250 mls/hr [employer] Administration Protocol Sodium Chloride 1,000 mls @ 30 ml s/hr 01/28/21 06:45 01/28/21 07:15 Sodium Chloride 0.9% IV 01/29/21 06:44 30 mls/hr .Q24H DINESH Administration PFSH Anesthesia PFSH: Medical History Cardiomyopathy Carotid stenosis, bilateral Colon polyps COPD (chronic obstructive pulmonary disease) Rectal cancer Surgical History H/O hernia repair History of colonoscopy with polypectomy 2019 History of lung biopsy Family History Daughter No problems noted. Brother Cancer colon cancer Social History Smoking and tobacco status: current every day smoker cigarettes Packs smoked per day: 0.5 Years cigarettes smoked: 60 [ Other cigarette details: Hx of 1 PPD x 60 Years ] Quit status (tobacco): considering quitting Second hand smoke exposure: Yes Smoking risk assessment/counseling performed?: Yes Alcohol intake: never Counseling given: No Counseling given: No Caregiver/support person: Yes Lives independently: Yes Household members: family Housing: House Marital status: / service: No Current occupational status: retired Pets and animals: No History of recent travel: No Current gender identity: Male Data Anesthesia Cardiac Studies: No Data to Display
--- NOTE | 2021-01-28 07:40 | SC_ITS ---
WS: [id number] Exam: C-arm FL for CVA [id number] Date/Time of Exam: 01/28/2021 7:40 AM Reason For Exam: port placement Limited anterior-posterior C-arm image of the upper right chest is submitted for evaluation. A right subclavian port has been placed. The catheter probably ends in the lower one third of the SVC . SC/C-arm FL for CVA [id number] IMPRESSION: 1. Satisfactory port placement on the right. The tip the catheter probably ends in the lower one third of the SVC.
[2021-01-28] MEDS: lidocaine 1% INJ 20 mL INJECTION (08:48)
[2021-01-28] MEDS: heparin, porcine 1,000 unit/mL INJ 10 mL 6000 UNIT INJECTION (09:04)
[2021-01-28 09:12] VITALS: BP 118/62; PULSE 92; RESP 16; TEMP 36.6; O2SAT 95
[2021-01-28 09:15] VITALS: BP 104/75; PULSE 102; RESP 18; O2SAT 97
--- NOTE | 2021-01-28 09:16 | P.OP_ITS ---
Operative Report Date of procedure: January 28, 2021 Pre-op Diagnosis: Rectal cancer Post-op diagnosis: same Procedure Done: 1. Placement of PowerPort in the right internal jugular vein 2. Fluoroscopic guidance and interpretation for placement of catheter 3. Ultrasound guidance to access the right internal jugular vein Pathology: none sent Surgeon: Tye Bianchi Anesthesia: MAC Condition: stable Disposition: PACU Procedure: The patient was taken to the Operating Room and the chest and neck bilaterally were prepped and draped in a sterile manner after the antibiotic had been administered and shoulder rolls had been placed. A total of 10 mL of 1% lidocaine with 0.5% Marcaine was infiltrated at the side at the site of the planned entry into the right internal jugular vein vein. An ultrasound of the right internal jugular vein revealed patent flow, no thrombus. An introducer needle was then used to access the subclavian vein under the clavicle and after withdrawing blood syringe was removed and a guidewire passed under fluoroscopy into the superior vena cava. The site of the planned port was then marked on the chest and a 15 blade was used to make a 3 cm skin incision this was extended into the subcutaneous tissue using electrocautery and a subcutaneous pocket over the pectoralis fascia was created 2-0 Vicryl suture was used to suture the port to the pectoral fascia in the pocket on 3 sides. The catheter, after having been flushed with hep saline, was attached to the tunneler and a tunnel created between the port site and the internal jugular vein entry site. Under fluoroscopy the dilator sheath was passed over the guidewire into the proximal superior vena cava. The inner dilator was removed and the sheath left behind and~ the catheter was introduced through the peel- away sheath with the tip in the superior vena cava. The peel-away sheath was removed. The proximal end of the catheter was cut to the right size and was attached to the port. Using a Barba needle the port was accessed, it withdrew blood easily and flushed easily. A final 5cc of heparin was used to flush the PowerPort. The subcutaneous tissue was approximated using interrupted 3-0 Vicryl sutures and the skin at the introducer site and the port site was closed using subcuticular running 4-0 Monocryl sutures. Surgical glue was applied and the patient was stable throughout the procedure. Fluoroscopic guidance and interpretation was performed for introduction of the guidewire in the right internal jugular vein, passage of dilator and placement of catheter tip in the distal superior vena cava.
[2021-01-28 09:20] VITALS: BP 88/56; PULSE 98; RESP 16; TEMP 36.2; O2SAT 98
[2021-01-28 09:36] VITALS: BP 134/84; PULSE 91; RESP 18; TEMP 36.3; O2SAT 98
[2021-01-28 09:50] VITALS: BP 158/77; PULSE 80; RESP 18; O2SAT 98
--- NOTE | 2021-01-28 13:55 | ANE.PACU2 ---
Inpatient post-anesthesia follow up: Airway intact: Yes Vital signs: Temperature 97.4 F Pulse Rate 80 Respiratory Rate 18 Blood Pressure 158/77 Pulse Oximetry 98 Oxygen Delivery Me thod Nasal Cannula Oxygen Flow Rate 3 Fraction of Inspir ed Oxygen Hydration adequate: Yes Nausea and vomiting: No Pain level: 2 Mental status: Baseline
== END 2021-01-28 10:20 | disposition home or self-care (01) ==
PROVIDERS: PCP Nurse Practitioner Family; Visit Provider Surgery
PROC: (CPT 36561; principal; 2021-01-28 08:00)
DX: C20 Malignant neoplasm of rectum (principal); J44.9 Chronic obstructive pulmonary disease, unspecified; Z99.81 Dependence on supplemental oxygen; I48.91 Unspecified atrial fibrillation; I25.10 Atherosclerotic heart disease of native coronary artery without angina pectoris; Z86.73 Personal history of transient ischemic attack (TIA), and cerebral infarction without residual deficits; F17.210 Nicotine dependence, cigarettes, uncomplicated
CPT/HCPCS: 36561; 77001; C1788; J1644; J2704; J3010; J3370; J3490; J7030; J7050

== ENCOUNTER 2021-06-03 11:35 | Outpatient (CLI) | payer MEDICARE, MEDICAID, SELFPAY ==
[2021-06-03 12:21] LABS: Basophils # 0.1 10^3/uL (0.0-0.1); Basophils % 0.6 %; Eosinophils # 0.2 10^3/uL (0.0-0.8); Eosinophils % 2.6 %; Hematocrit 35.6 % (42.0-52.0); Hemoglobin 11.5 g/dL (11.7-16.6); Lymphocytes # 0.9 10^3/uL (0.8-4.8); Lymphocytes % 10.5 %; Mean Corpuscular HGB Conc 32.3 g/dL (30.0-36.0); Mean Corpuscular Hemoglobin 30.6 pg (28.0-34.0); Mean Corpuscular Volume 94.7 fl (80-94); Mean Platelet Volume 9.5 fL (7.4-10.4); Monocytes # 0.9 10^3/uL (0.2-0.9); Monocytes % 11.3 %; Neutrophils % 74.3 %; Nucleated Red Blood Cells % 0 %; Platelet Count 220 10^3/cmm (130-400); Red Blood Count 3.76 10^6/uL (4.1-5.3); Red Cell Distribution Width 15.2 % (12.1-15.1); White Blood Count 8.1 10^3/uL (4.0-10.0)
[2021-06-03 12:44] LABS: Alanine Aminotransferase 12 U/L (0-41); Albumin Level 3.8 g/dL (3.5-5.2); Alkaline Phosphatase 106 IU/L (40-130); Anion Gap 16.3 (5-19); Aspartate Amino Transferase 13 U/L (0-40); Blood Urea Nitrogen 17 mg/dL (8-23); Calcium 8.8 mg/dL (8.5-10.5); Carbon Dioxide 26 mmol/L (22-29); Chloride 100 mmol/L (98-107); Globulin 3.9 g/dL (1.3-4.6); Glucose 123 mg/dL (65-115); Osmolality Calculated 289 mOsm/kg (285-295); Potassium 4.3 mmol/L (3.5-5.1); Sodium 138 mmol/L (136-145); Total Bilirubin 0.6 mg/dL (0.15-1.2); Total Protein 7.7 g/dL (6.6-8.7)
--- NOTE | 2021-06-03 17:25 | ONC FU_ITS ---
Dr. Gonzalez follow up note Patient: Junior Rambo Unit #: [id number]: 1945 Dicatated By: Lisette Gonzalez M.D.Date of Visit:Jun 03, 2021 Onc Med Follow-up/Prog Note History of Present Illness: Mr. Ricks is a 75-year-old gentleman who presented to his primary care with rectal bleeding. He denied abdominal or pelvic pain. He had no diarrhea or constipation or nausea or vomiting. He did have colonoscopy on 08/25/2018. It revealed a friable mass involving the posterior wall the rectum about 4 cm from the anal verge which was biopsied. A 5 mm pedunculated polyp in the sigmoid colon and another 5 mm sessile polyp in the ascending colon were removed. Pathology showed the distal rectal mass was moderately differentiated infiltrating adenocarcinoma. The sigmoid and ascending colon polyps were hyperplastic and adenomatous polyp respectively. Staging CT of the abdomen pelvis on 08/13/2018 revealed an irregular thickened/nodular distal rectum. CT of the chest abdomen pelvis on 08/24/2018 showed a right medial upper lobe subpleural 9.7 mm nodular focus with possible extension to the anterior mediastinal fat. Neoplastic process was not entirely excluded. Otherwise there was no definite evidence of metastasis in the chest abdomen pelvis. He did undergo MRI of the pelvis on 09/14/2017. It showed a circumferential rectal mass which appears to have a microscopic invasion through the muscularis both laterally as well as posteriorly. This mass abuts and appears to involve the upper aspect of the sphincter posteriorly as well as anterolaterally on the right. There are mildly enlarged adjuvant mesorectal and upper presacral lymph node suspicious for metastasis. Mr. Ricks was evaluated by Dr. Short in [place]. It was recommended that he pursue neoadjuvant chemoradiation followed by surgical resection. Mr. Ricks has been evaluated by Dr. Scherer in radiation oncology also advised that he pursue chemotherapy with Xeloda. Completed neoadjuvant combined chemoradiation with oral Xeloda on 11/20/2018 Patient has advanced stage emphysema/COPD on continuous oxygen and has long-standing history of smoking and still smoking about pack a day. His last transfusion service was on 10/05/2018 for hemoglobin of 7.9. Thus far his hemoglobin is holding it is 9.9. I did do iron studies on him last week and he is iron saturation is 62%. Follow-up CT scan of chest done on 12/04/2018 showed left lower lobe lung mass measured 1.8 x 1.1 cm. Bilateral lower lobe pulmonary parenchymal nodule stable from 08/24/2018 Patient was referred to tuber machine operator helper Dr. Jiang in [place] for navigational bronchoscopy with biopsy,Which was done on 01/19/2019 and bronchial wash showed no malignant cells. And BAL, l left lower lobe showed no malignant cells and casts bronchial biopsy of left lower lobe lesion showed no malignancy negative for granuloma Severe chronic emphysema on home o2 Dr. Scherer radiation oncologist did order CT PET scan which was done on 12/16/2018 and it confirmed left lower lobe nodule measuring 1.4 x 1.5 cm with SUV of 7.3 but no other pulmonary nodule uptake seen Mild activity at the rectum has SUV of 4.2 which shows improvement. follow up with Dr. Short on 01/01/2019 .And his impression was the distal rectal cancer feeling much smaller after chemoradiation now mainly and ulcer, suspect some tumor cell persist. And being so distal makes a traditional cancer operation necessarily involve complete rectal removal with permanent colostomy and And transanal excision always an option but not as good of a cancer operation and might heal poorly given prior radiation And additional chemotherapy may shrink tumor further.As per patient Dr. Short, took some sample from his rectal lesion and he was informed that chemoradiation therapy has destroyed the tumor and no further treatment needed rather follow-up every 3 months for 2 years patient went to see him probably couple of times then quit going back on his own and he never came back to see us since his last visit in 2019. Patient was admitted to hospital on December 03, 2020 with aphasia, facial droop and also noted to have new onset of atrial fibrillation with slow ventricular response on presentation. CT angiogram of head and neck showed 60 to 70% stenosis of very short segment of petrous portion of left internal carotid artery., His aphasia symptoms resolved quite well and returned to baseline MRI scan of the brain was done which showed no evidence of brain mets or acute CVA patient also had CT scan of chest done on December 02, 2020 which showed spiculated 3.3 x 4.5 x 3.2 cm mass in the left lower lobe with scarring and retraction of adjacent lung. The mass extends to the end retracts the fissure on the left and there is extension inferiorly towards the left pleural surface with a 9 mm size subpleural satellite nodule worrisome for additional malignancy. Extensive emphysema bilaterally and also showed a small left paratracheal lymph node measuring up to 10 x 12 mm slightly more prominent than previous exam and there is a moderate left pleural effusion. Patient denies any bony pains occasionally hemoptysis but no weight loss appetite is good no shortness of breath at rest although patient is on chronic home oxygen. Denies any jaundice. Denies any focal weakness. Again as mentioned above patient underwent left lung bronchoscopy on January 19, 2019 in [place] and BAL showed no evidence of malignancy. CT PET scan was done on December 13, 2020 showed left lower lobe, spiculated mass measuring 5.4 x 3.2 cm SUV 16.8., Along with 2 subpleural nodules are subcentimeter in size with minimal FDG activity these are suspicious for local satellite lesions., Multiple radiographically benign mediastinal lymph node have typical reactive appearance. No other abnormality seen., Left pleural effusion. 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 Patient was called home many times as per nurse message was left but never got a call back from him. Denies any hemoptysis or hematemesis denies any fever chills denies any nausea or vomiting denies any headaches blurred vision or double vision Medications: Albuterol Sulfate ((2.5 mg/3ml) 0.083%) Nebulization solution Inhalation, Budesonide Suspension Inhalation, Ventolin HFA 1 puff(s) (of 108 (90 base) mcg/act) Aerosol, solution Inhalation PRN Allergies: Penicillins Review of Systems: Review of Systems is not available for this patient. Vital Signs: Performed on Jun 03, 2021 14:08 Height - 68.00 in Weight - 160.4 lbs (HIGH) BSA - 1.86 sq.m BMI - 24.39 Temperature - 99.1 F (HIGH) Pulse - 113 /min (HIGH) Respiration - 20 /min BP - 135/74 mm(hg) Pain - 0 Fatigue - 2 Performance Status: 2 - Ambulatory/capable of all self-care, unable to perform any work activities. Up and about more than 50% of waking hours. (ECOG) Physical Examination: ENMT - No mouth sores, no thrush, no jaundice, Respiratory - Poor air entry otherwise clear, Cardiovascular - Regular rate and rhythm of heart, Abdomen - Soft, bowel sounds present, Extremities - No visible edema. Lab/Imaging: Most recent lab results are not available for this patient. Impression: Non-small cell carcinoma, favor primary pulmonary mucinous adenocarcinoma per endobronchial ultrasound-guided needle aspiration of left lower lobe mass done on January 06, 2021, station 7 and station 11 lymph nodes endobronchial ultrasound-guided FNA came back negative, PD-L1 expression level TPS 5% CT PET scan done on January 12, 2021 showed in the left lower lobe, there is a spiculated mass measuring 5.4 x 3.2 cm SUV of 16.8, 2 subpleural nodules are subcentimeter in size with minimal FDG activity, suspicious for local satellite lesions e.g. T3 lesion versus metastatic, immunohistochemistry stains Confirmed lung being primary Moderately differentiated Infiltrating adenocarcinoma of the rectum per colonoscopy/biopsy done on 08/22/2018 CT scan of the chest abdomen pelvis done on 08/24/2018 showed advanced emphysema with right upper and bilateral lower lobe bullous and bleb emphysematous changes. Right medial upper lobe subpleural 9.7 mm nodular focus with possible extension into the anterior mediastinal fat. Neoplastic process is not entirely excluded. No lymphadenopathy otherwise CT scan of abdomen pelvis shows rectal wall nodule thickening, no evidence of metastatic disease in the abdomen or pelvis. MRI scan of the pelvis done on 09/14/2018 showed circumferential no rectal mass which appears to demonstrate microscopic invasion through the muscularis both laterally as well as posteriorly. Additionally, this mass abuts and appears to involve the upper aspect of sphincter posteriorly as well as anterior laterally on the right. There are some mildly enlarged adjacent mesorectal and upper presacral lymph nodes associated with these findings. Clinical stage T2-3,Nx,Mx discussed with Mr Ricks his disease status and treatment options which include neoadjuvant chemoradiation with oral Xeloda. Considering his age and comorbid condition, recommended Xeloda 825 mg/m2 by mouth twice a day 5 days a week concurrent with radiation therapy. He began chemoradiation on 10/11/2018.And concluded on 11/20/2018 follow-up CT scan of chest done on 12/04/2018 showed persistent left lower lobe mass measuring 1.8 x 1.1 cm and bilateral lower lobe pulmonary parenchymal nodules stable from 08/24/2018 Dr. Scherer, did order CT PET scan which was done on 12/16/2018 and it confirmed 1.4 x 1.5 cm left lower lobe nodule with SUV of 7.3 and mild activity at the rectum has SUV of 4.2 shows improvement.Underwent navigational bronchoscopy on 01/19/2019 and bronchial washing and BAL of left lower lobe and transbronchial biopsy, none of them showed malignancy. Was seen by Dr. Short on 01/01/2019 and his evaluation/recommendation was, tumor appears much smaller, mainly ulcer, suspect some tumor cells persist being so distal rectal cancer, APR with permanent colostomy is under consideration Transanal excision is an other option but but not as good as traditional approach, and might heal poorly given prior radiation. Additional chemotherapy may shrink tumor further., As per patient Dr. Short need biopsy from his rectal ulcer and told him that he had very good response to chemoradiation no further treatment needed rather follow-up every 3 months for 2 years Advanced stage COPD/emphysema on home oxygen Long-standing history of smoking- still active. Plan: Discussed with patient regarding his labs white blood count 8.1 hemoglobin 11.5 hematocrit 35.6 platelets 220,000 CMP within normal limits and CEA was 48.3 on January 14, 2021 Clinically, patient doing well with no new signs symptom suggestive of disease progression but still has dyspnea exertion due to severe COPD/emphysema is on home oxygen, patient lost follow-up despite of repeated call from the office and eventually came in today, at this point we will consider CT PET scan to assess the disease status, patient has metastatic disease, being PD-L1 positive and considering his performance status, will consider pembrolizumab alone or plus minus weekly carboplatin Taxol, if he has localized disease, will refer to radiation oncology for evaluation for combined chemoradiation Patient was advised to quit smoking and was offered any assistance he may need Patient return to clinic after CT PET scan for further discussion Signed By: Lisette Gonzalez M.D. <<Signature on File>>
[2021-06-13 15:57] LABS: EGFR Result NOT DETECTED (NOT DETECTED)
[2021-06-17 17:02] LABS: BRAF Mutation Analysis NOT DETECTED (NOT DETECTED)
[2021-06-22 13:06] LABS: Lung Cancer ALK Client Access See Report; Lung Cancer ALK Client Phone # See Report; Lung Cancer ALK Clinical Indic See Report; Lung Cancer ALK Patient ID: See Report; Lung Cancer ALK Ref. Phy # See Report; Lung Cancer ALK Referring Phy See Report; Lung Cancer ALK Specimen Src See Report
== END 2021-06-03 11:36 | disposition home or self-care (01) ==
LOC: ONCMED 11:37
PROVIDERS: PCP Nurse Practitioner Family; Visit Provider Internal Medicine Hematology & Oncology
DX: C34.32 Malignant neoplasm of lower lobe, left bronchus or lung (principal); Z85.048 Personal history of other malignant neoplasm of rectum, rectosigmoid junction, and anus; Z92.21 Personal history of antineoplastic chemotherapy; Z92.3 Personal history of irradiation; J44.9 Chronic obstructive pulmonary disease, unspecified; F17.200 Nicotine dependence, unspecified, uncomplicated; Z99.81 Dependence on supplemental oxygen; Z79.899 Other long term (current) drug therapy
CPT/HCPCS: 36591; 80053; 81210; 85025; 88368; 99214

== ENCOUNTER → 2021-06-05 13:58 | Day surgery (SDC) | payer MEDICARE, MEDICAID, SELFPAY ==
[2021-06-05 14:22] VITALS: BP 136/83; PULSE 80; RESP 18; TEMP 37.1; O2SAT 94; BMI 24.3
--- NOTE | 2021-06-05 14:33 | US_ITS ---
WS: [id number] ULTRASOUND-GUIDED THORACENTESIS HISTORY: Malignant neoplasm of rectum Procedure, risks, and complications were explained to the patient. With the patient in an upright pos ition, the skin over the LEFT posterior thorax was cleansed with ChloraPrep and anesthetized with 1% buffered lidocaine. A 5 [place] Yueh needle is inserted into the pleural fluid without complication. A pproximately 460 cc of clear pleural fluid is removed without difficulty. Pleural fluid collected for analysis. / thoracentesis [id number] IMPRESSION: 1. LEFT thoracentesis yielding 460 cc of fluid. 2. Chest radiograph to follow to evaluate for pneumothorax.
[2021-06-05 14:56] LABS: INR 1.23 (0.8-1.2)
--- NOTE | 2021-06-05 15:48 | XR_ITS ---
WS: [id number] CHEST, 1 view. HISTORY: Status post LEFT thoracentesis. COMPARISON: 01/06/2021. No pneumothorax status post LEFT thoracentesis. No residual LEFT pleural effusion. Spiculated soft tissue mass in the central LEFT lung measuring 5.9 x 4.2 cm. This mass is increased i n size since 01/06/2021. Severe emphysematous changes with areas of atelectasis and scarring throughout the LEFT lung and at the RIGHT apex. Cardiac size: Normal. Mediastinum/Aorta: Mild atherosclerosis aorta. No osseous abnormality seen. Right-sided Mediport. XR/XR chest 1V [id number] IMPRESSION: 1. No LEFT pneumothorax or complication status post LEFT thoracentesis. 2. Increasing size of the spiculated mass in the central LEFT lung since 021.
[2021-06-05 15:56] VITALS: PULSE 88; O2SAT 95
== END ==
PROVIDERS: PCP Nurse Practitioner Family; Visit Provider Internal Medicine Hematology & Oncology
DX: C20 Malignant neoplasm of rectum (principal)
CPT/HCPCS: 32555; 71045; 85610; 88112; 88305

== ENCOUNTER 2021-06-11 06:30 | Outpatient (CLI) | payer MEDICARE, MEDICAID, SELFPAY ==
--- NOTE | 2021-06-11 17:41 | ONC FU_ITS ---
Dr. Gonzalez follow up note Patient: Junior Rambo Unit #: [id number]: 1945 Dicatated By: Lisette Gonzalez M.D.Date of Visit:Jun 11, 2021 Onc Med Follow-up/Prog Note History of Present Illness: Mr. Ricks is a 75-year-old gentleman who presented to his primary care with rectal bleeding. He denied abdominal or pelvic pain. He had no diarrhea or constipation or nausea or vomiting. He did have colonoscopy on 08/25/2018. It revealed a friable mass involving the posterior wall the rectum about 4 cm from the anal verge which was biopsied. A 5 mm pedunculated polyp in the sigmoid colon and another 5 mm sessile polyp in the ascending colon were removed. Pathology showed the distal rectal mass was moderately differentiated infiltrating adenocarcinoma. The sigmoid and ascending colon polyps were hyperplastic and adenomatous polyp respectively. Staging CT of the abdomen pelvis on 08/13/2018 revealed an irregular thickened/nodular distal rectum. CT of the chest abdomen pelvis on 08/24/2018 showed a right medial upper lobe subpleural 9.7 mm nodular focus with possible extension to the anterior mediastinal fat. Neoplastic process was not entirely excluded. Otherwise there was no definite evidence of metastasis in the chest abdomen pelvis. He did undergo MRI of the pelvis on 09/14/2017. It showed a circumferential rectal mass which appears to have a microscopic invasion through the muscularis both laterally as well as posteriorly. This mass abuts and appears to involve the upper aspect of the sphincter posteriorly as well as anterolaterally on the right. There are mildly enlarged adjuvant mesorectal and upper presacral lymph node suspicious for metastasis. Mr. Ricks was evaluated by Dr. Short in [place]. It was recommended that he pursue neoadjuvant chemoradiation followed by surgical resection. Mr. Ricks has been evaluated by Dr. Scherer in radiation oncology also advised that he pursue chemotherapy with Xeloda. Completed neoadjuvant combined chemoradiation with oral Xeloda on 11/20/2018 Patient has advanced stage emphysema/COPD on continuous oxygen and has long-standing history of smoking and still smoking about pack a day. His last transfusion service was on 10/05/2018 for hemoglobin of 7.9. Thus far his hemoglobin is holding it is 9.9. I did do iron studies on him last week and he is iron saturation is 62%. Follow-up CT scan of chest done on 12/04/2018 showed left lower lobe lung mass measured 1.8 x 1.1 cm. Bilateral lower lobe pulmonary parenchymal nodule stable from 08/24/2018 Patient was referred to direct entry midwife Dr. Jiang in [place] for navigational bronchoscopy with biopsy,Which was done on 01/19/2019 and bronchial wash showed no malignant cells. And BAL, l left lower lobe showed no malignant cells and casts bronchial biopsy of left lower lobe lesion showed no malignancy negative for granuloma Severe chronic emphysema on home o2 Dr. Scherer radiation oncologist did order CT PET scan which was done on 12/16/2018 and it confirmed left lower lobe nodule measuring 1.4 x 1.5 cm with SUV of 7.3 but no other pulmonary nodule uptake seen Mild activity at the rectum has SUV of 4.2 which shows improvement. follow up with Dr. Short on 01/01/2019 .And his impression was the distal rectal cancer feeling much smaller after chemoradiation now mainly and ulcer, suspect some tumor cell persist. And being so distal makes a traditional cancer operation necessarily involve complete rectal removal with permanent colostomy and And transanal excision always an option but not as good of a cancer operation and might heal poorly given prior radiation And additional chemotherapy may shrink tumor further.As per patient Dr. Short, took some sample from his rectal lesion and he was informed that chemoradiation therapy has destroyed the tumor and no further treatment needed rather follow-up every 3 months for 2 years patient went to see him probably couple of times then quit going back on his own and he never came back to see us since his last visit in 2019. Patient was admitted to hospital on December 03, 2020 with aphasia, facial droop and also noted to have new onset of atrial fibrillation with slow ventricular response on presentation. CT angiogram of head and neck showed 60 to 70% stenosis of very short segment of petrous portion of left internal carotid artery., His aphasia symptoms resolved quite well and returned to baseline MRI scan of the brain was done which showed no evidence of brain mets or acute CVA patient also had CT scan of chest done on December 02, 2020 which showed spiculated 3.3 x 4.5 x 3.2 cm mass in the left lower lobe with scarring and retraction of adjacent lung. The mass extends to the end retracts the fissure on the left and there is extension inferiorly towards the left pleural surface with a 9 mm size subpleural satellite nodule worrisome for additional malignancy. Extensive emphysema bilaterally and also showed a small left paratracheal lymph node measuring up to 10 x 12 mm slightly more prominent than previous exam and there is a moderate left pleural effusion. Patient denies any bony pains occasionally hemoptysis but no weight loss appetite is good no shortness of breath at rest although patient is on chronic home oxygen. Denies any jaundice. Denies any focal weakness. Again as mentioned above patient underwent left lung bronchoscopy on January 19, 2019 in [place] and BAL showed no evidence of malignancy. CT PET scan was done on December 13, 2020 showed left lower lobe, spiculated mass measuring 5.4 x 3.2 cm SUV 16.8., Along with 2 subpleural nodules are subcentimeter in size with minimal FDG activity these are suspicious for local satellite lesions., Multiple radiographically benign mediastinal lymph node have typical reactive appearance. No other abnormality seen., Left pleural effusion. 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 Patient denies any fever chills or nausea or vomiting denies any diarrhea constipation denies any blurred vision or double vision but off-and-on headaches. No hemoptysis hematemesis Medications: Albuterol Sulfate ((2.5 mg/3ml) 0.083%) Nebulization solution Inhalation, Budesonide Suspension Inhalation, Ventolin HFA 1 puff(s) (of 108 (90 base) mcg/act) Aerosol, solution Inhalation PRN Allergies: Penicillins Review of Systems: Review of Systems is not available for this patient. Vital Signs: Performed on Jun 11, 2021 08:46 Height - 68.00 in Weight - 158.2 lbs (LOW) BSA - 1.85 sq.m BMI - 24.05 Temperature - 97.1 F (LOW) Pulse - 109 /min (HIGH) Respiration - 20 /min BP - 100/59 mm(hg) O2 Sat - 92 % (LOW) Pain - 0 Fatigue - 8 Performance Status: 1 - No physically strenuous activity, but ambulatory and able to carry out light or sedentary work (e.g. office work, light house work). (ECOG) Physical Examination: ENMT - No mouth sores, no thrush, no jaundice, Respiratory - Poor air entry otherwise clear, Cardiovascular - Regular rate and rhythm of heart, Abdomen - Soft, bowel sounds present, Extremities - No visible edema. Lab/Imaging: Most recent lab results are not available for this patient. Impression: Non-small cell carcinoma, favor primary pulmonary mucinous adenocarcinoma per endobronchial ultrasound-guided needle aspiration of left lower lobe mass done on January 06, 2021, station 7 and station 11 lymph nodes endobronchial ultrasound-guided FNA came back negative, PD-L1 expression level TPS 5% CT PET scan done on January 12, 2021 showed in the left lower lobe, there is a spiculated mass measuring 5.4 x 3.2 cm SUV of 16.8, 2 subpleural nodules are subcentimeter in size with minimal FDG activity, suspicious for local satellite lesions e.g. T3 lesion versus metastatic, immunohistochemistry stains Confirmed lung being primary Moderately differentiated Infiltrating adenocarcinoma of the rectum per colonoscopy/biopsy done on 08/22/2018 CT scan of the chest abdomen pelvis done on 08/24/2018 showed advanced emphysema with right upper and bilateral lower lobe bullous and bleb emphysematous changes. Right medial upper lobe subpleural 9.7 mm nodular focus with possible extension into the anterior mediastinal fat. Neoplastic process is not entirely excluded. No lymphadenopathy otherwise CT scan of abdomen pelvis shows rectal wall nodule thickening, no evidence of metastatic disease in the abdomen or pelvis. MRI scan of the pelvis done on 09/14/2018 showed circumferential no rectal mass which appears to demonstrate microscopic invasion through the muscularis both laterally as well as posteriorly. Additionally, this mass abuts and appears to involve the upper aspect of sphincter posteriorly as well as anterior laterally on the right. There are some mildly enlarged adjacent mesorectal and upper presacral lymph nodes associated with these findings. Clinical stage T2-3,Nx,Mx discussed with Mr Ricks his disease status and treatment options which include neoadjuvant chemoradiation with oral Xeloda. Considering his age and comorbid condition, recommended Xeloda 825 mg/m2 by mouth twice a day 5 days a week concurrent with radiation therapy. He began chemoradiation on 10/11/2018.And concluded on 11/20/2018 follow-up CT scan of chest done on 12/04/2018 showed persistent left lower lobe mass measuring 1.8 x 1.1 cm and bilateral lower lobe pulmonary parenchymal nodules stable from 08/24/2018 Dr. Scherer, did order CT PET scan which was done on 12/16/2018 and it confirmed 1.4 x 1.5 cm left lower lobe nodule with SUV of 7.3 and mild activity at the rectum has SUV of 4.2 shows improvement.Underwent navigational bronchoscopy on 01/19/2019 and bronchial washing and BAL of left lower lobe and transbronchial biopsy, none of them showed malignancy. Was seen by Dr. Short on 01/01/2019 and his evaluation/recommendation was, tumor appears much smaller, mainly ulcer, suspect some tumor cells persist being so distal rectal cancer, APR with permanent colostomy is under consideration Transanal excision is an other option but but not as good as traditional approach, and might heal poorly given prior radiation. Additional chemotherapy may shrink tumor further., As per patient Dr. Short need biopsy from his rectal ulcer and told him that he had very good response to chemoradiation no further treatment needed rather follow-up every 3 months for 2 years Advanced stage COPD/emphysema on home oxygen Long-standing history of smoking- still active. Plan: Discussed with patient regarding his labs, white blood count 8.1 hemoglobin 11.5 hematocrit 35.6 platelets 220,000 CMP within normal limits, clinically, patient doing well with no new signs symptom, recently underwent thoracentesis and cytology came back negative for malignancy, patient is scheduled for CT PET scan on coming Tuesday and will also consider CT scan of head to rule out brain mets, he will return to clinic in 1 week to discuss about CT PET scan finding as well as CT head and based on that we will make further recommendations Signed By: Lisette Gonzalez M.D. <<Signature on File>>
== END 2021-06-11 06:31 | disposition home or self-care (01) ==
LOC: ONCMED 06:30
PROVIDERS: PCP Nurse Practitioner Family; Visit Provider Internal Medicine Hematology & Oncology
DX: C34.32 Malignant neoplasm of lower lobe, left bronchus or lung (principal); Z85.048 Personal history of other malignant neoplasm of rectum, rectosigmoid junction, and anus; Z92.21 Personal history of antineoplastic chemotherapy; Z92.3 Personal history of irradiation; J44.9 Chronic obstructive pulmonary disease, unspecified; F17.200 Nicotine dependence, unspecified, uncomplicated; Z99.81 Dependence on supplemental oxygen; Z79.899 Other long term (current) drug therapy
CPT/HCPCS: 99214

== ENCOUNTER 2021-06-15 14:02 | Outpatient (CLI) | payer MEDICARE, MEDICAID, SELFPAY ==
--- NOTE | 2021-06-15 14:21 | CT_ITS ---
WS: [id number] CT HEAD TECHNIQUE: Noncontrast and contrast-enhanced CT of the head. CLINICAL INFORMATION: LUNG CANCER INITIAL STAGING COMPARISON: MRI December 04, 2020 CT December 02, 2020 DLP: 1853.[address] scans at [facility] use at least one of these dose optimization techniques: automated e xposure control; mA and/or kV adjustment per patient size (includes targeted exams where dose is matc hed to clinical indication); or iterative reconstruction. FINDINGS: No evidence of intracranial hemorrhage or mass effect. Ventricular system and basal cisterns are michel nt. Moderate small vessel changes. Mild parenchymal volume loss. Normal posterior fossa. Normal fourt h ventricle. No extra-axial fluid collections. No abnormal intracranial enhancement. No enhancing int racranial lesions. Paranasal sinuses and mastoid air cells well aerated. Impression CT/CT head wo/w con [id number] IMPRESSION: 1. No evidence of enhancing intracranial metastatic disease. 2. No evidence of intracranial hemorrhage or mass effect. Ventricular system a nd basal cisterns are patent. 3. Moderate small vessel changes with mild parenchymal volume loss. 4. No other significant findings.
[2021-06-15] MEDS: iohexol 300 mg/mL 100 mL Btl IV (14:38)
== END 2021-06-15 14:03 | disposition home or self-care (01) ==
PROVIDERS: PCP Nurse Practitioner Family; Visit Provider Internal Medicine Hematology & Oncology
DX: C34.90 Malignant neoplasm of unspecified part of unspecified bronchus or lung (principal)
CPT/HCPCS: 70470; Q9967

== ENCOUNTER 2021-06-24 10:49 | Outpatient (CLI) | payer MEDICARE, MEDICAID, SELFPAY ==
[2021-06-24 11:33] LABS: Basophils # 0.1 10^3/uL (0.0-0.1); Basophils % 0.7 %; Eosinophils # 0.1 10^3/uL (0.0-0.8); Eosinophils % 1.3 %; Hematocrit 36.3 % (42.0-52.0); Hemoglobin 11.3 g/dL (11.7-16.6); Lymphocytes # 0.8 10^3/uL (0.8-4.8); Lymphocytes % 8.4 %; Mean Corpuscular HGB Conc 31.1 g/dL (30.0-36.0); Mean Corpuscular Hemoglobin 29.8 pg (28.0-34.0); Mean Corpuscular Volume 95.8 fl (80-94); Mean Platelet Volume 9.2 fL (7.4-10.4); Monocytes # 1.1 10^3/uL (0.2-0.9); Monocytes % 11.4 %; Neutrophils # 7.11 10^3/uL (1.8-7.7); Nucleated Red Blood Cells % 0 %; Platelet Count 296 10^3/cmm (130-400); Red Blood Count 3.79 10^6/uL (4.1-5.3); Red Cell Distribution Width 15.8 % (12.1-15.1); White Blood Count 9.2 10^3/uL (4.0-10.0)
[2021-06-24 11:57] LABS: Alanine Aminotransferase 11 U/L (0-41); Albumin Level 3.7 g/dL (3.5-5.2); Alkaline Phosphatase 109 IU/L (40-130); Anion Gap 15.2 (5-19); Aspartate Amino Transferase 14 U/L (0-40); Blood Urea Nitrogen 16 mg/dL (8-23); Calcium 8.8 mg/dL (8.5-10.5); Carbon Dioxide 28 mmol/L (22-29); Chloride 99 mmol/L (98-107); Globulin 4.2 g/dL (1.3-4.6); Glucose 152 mg/dL (65-115); Osmolality Calculated 290 mOsm/kg (285-295); Potassium 4.2 mmol/L (3.5-5.1); Sodium 138 mmol/L (136-145); Total Bilirubin 0.5 mg/dL (0.15-1.2); Total Protein 7.9 g/dL (6.6-8.7)
== END 2021-06-24 10:50 | disposition home or self-care (01) ==
LOC: ONCMED 10:55
PROVIDERS: Nurse Practitioner; PCP Nurse Practitioner Family; Visit Provider Internal Medicine Hematology & Oncology
DX: C20 Malignant neoplasm of rectum (principal)
CPT/HCPCS: 36591; 80053; 85025

== ENCOUNTER 2021-06-29 06:46 | Outpatient (CLI) | payer MEDICARE, MEDICAID, SELFPAY ==
--- NOTE | 2021-06-29 13:45 | N.ONRAD NP_ITS ---
Radiation Oncology Consultation Patient Name: Junior Ricks Date of : 1945 Date of Service: 06/29/2021 Attending Physician: Cooper Lindsey M.D. Junior Ricks was seen in consultation this afternoon at the request of Alexander Gonzalez M.D. for consideration of thoracic radiotherapy in the management of a recently diagnosed non-small cell lung cancer. He was evaluated at the [facility] Emergency Department in November for aphasia and confusion. A CT angiogram of the head neck confirmed a stenosis of the petrous portion of the left internal carotid artery. A chest radiograph identified a 4 cm spiculated mass in the left lower lobe of the lung. A subsequent thoracic CT scan demonstrated a 3.3 cm x 4.5 cm x 3.2 cm left lower lobe mass, a 9 mm subpleural satellite nodule, and a 1 cm x 1.2 cm left paratracheal lymph node. A bronchoscopy was performed on January 06, 2021. Biopsies of the left lower lobe lesion favored a pulmonary mucinous adenocarcinoma. Samples from left node station 7 and lymph node station 11 were negative for malignancy. PD???L1 expression was 5%. The patient was lost to follow-up until June. An ultrasound-guided thoracentesis completed on June 05, 2021 yielded 460 cc of fluid without malignancy present. A restaging PET CT (independently reviewed in [facility]) requested on June 20, 2021 verified a 4.5 cm x 4.6 cm left lower lobe spiculated mass with an SUV of 23.9 and a left pleural effusion. The patient was evaluated for definitive thoracic radiotherapy. I discussed with Mr. Ricks the AJCC clinical stage IIB (T3N0) lung cancer corresponding to his disease. I also reviewed the National Comprehensive Cancer Network Guidelines recommending concurrent chemoradiotherapy in the management of lung cancer in patients who are medically inoperable. The classic study, RTOG 9410, comparing sequential versus concurrent chemoradiotherapy demonstrated an overall survival advantage for the concurrent chemoradiotherapy regimen and established the standard of care. Induction chemotherapy would also be an option to reduce the size of the lesion thereby incorporating stereotactic radiotherapy. I would endorse either SABR following chemotherapy or a six week course of chemoradiotherapy. A computed tomographic with contrast radiotherapy planning scan in the treatment position will be performed and co-registered to the patient's staging PET CT scan to identify the gross tumor volume. The potential toxicities of thoracic radiotherapy were reviewed. The patient has verbalized understanding would like to proceed as recommended. The patient???s treatment plan was discussed with Alexander Gonzalez M.D. Signed by: Dr. Cooper Lindsey 06/29/2021 1:44:19 PM
== END 2021-06-29 06:47 | disposition home or self-care (01) ==
LOC: ONCMED 06:48
PROVIDERS: PCP Nurse Practitioner Family; Visit Provider Radiology Radiation Oncology
DX: C34.12 Malignant neoplasm of upper lobe, left bronchus or lung (principal); I65.22 Occlusion and stenosis of left carotid artery; C77.8 Secondary and unspecified malignant neoplasm of lymph nodes of multiple regions; Z79.899 Other long term (current) drug therapy
CPT/HCPCS: 99205

== ENCOUNTER 2022-05-30 17:07 | Inpatient (IN) | payer MEDICARE, MEDICAID, SELFPAY ==
[2022-05-30] VITALS (36 sets, daily range): BP systolic 107–136; BP diastolic 69–96; PULSE 89–125; RESP 16–34; TEMP 36.4–36.6; O2SAT 90–96; BMI 20.7; BMI 25.2
--- NOTE | 2022-05-30 17:08 | W.ED.WEAKNES ---
HPI - Weakness General: Chief complaint: Weakness Stated complaint: general weakness Time Seen by Provider: 05/30/22 17:08 History of Present Illness: Mr. Ricks is a 76-year-old gentleman with significant past medical history of hypertension, hyperlipidemia, A. fib (supposed to be on Eliquis), TIA, lung and rectal cancer no longer on therapy presenting to the emergency department due to generalized weakness. This has been worse for some time however he has noticed over the past week increased cough and shortness of breath. EMS found the patient to be mildly hypoxemic even on his baseline 4 L of oxygen with oxygen saturations in the mid 80s and tachypnea associated with inability to get up. Overall course of symptoms has worsened. Intensity is moderate to severe. No other specific changes in health, exacerbating, or alleviating factors identified. Patient recently prescribed Lasix with bilateral lower extremity edema that has been worsening for some time however has been unable to fill prescription. Apparently he has also been out of most all of his other medications as well... Duration: progressively worsening Location: generalized Severity: moderate Exacerbating factors: movement and exertion Review of Systems General: Reports: 10 or more systems reviewed and unremarkable except in HPI and below PFSH ED PFSH: Medical History Cardiomyopathy Carotid stenosis, bilateral Colon polyps COPD (chronic obstructive pulmonary disease) Rectal cancer Surgical History H/O hernia repair History of colonoscopy with polypectomy 2019 History of lung biopsy Port-A-Cath in place (01/28/21) Family History Daughter No problems noted. Brother Cancer colon cancer Social History Smoking and tobacco status: current every day smoker cigarettes Packs smoked per day: 0.5 Years cigarettes smoked: 60 [ Other cigarette details: Hx of 1 PPD x 60 Years] Quit status (tobacco): considering quitting Second hand smoke exposure: Yes Smoking risk assessment/counseling performed?: Yes Alcohol intake: never Counseling given: No Counseling given: No Caregiver/support person: Yes Lives independently: Yes Household members: family Housing: House Marital status: / service: No Current occupational status: retired Pets and animals: No History of recent travel: No Current gender identity: Male Physical Exam Const: COMMON NORMALS: alert GENERAL APPEARANCE: cooperative, well developed and ill appearing HENMT: COMMON NORMALS: normocephalic and atraumatic HEAD & SCALP: normocephalic and atraumatic Eye: COMMON NORMALS: conjunctivae normal CONJUNCTIVA: Yes conjunctivae normal SCLERA: sclerae normal Neck/C-Spine: COMMON NORMALS: supple GENERAL: Yes trachea midline Resp: EFFORT & INSPECTION: Yes tachypneic AUSCULTATION: diminished lung sounds Cardio: RATE: tachycardic RHYTHM: abnormal rhythm irregularly irregular GI: COMMON NORMALS: Soft to palpation PALPATION: Yes Soft to palpation and No Tenderness to palpation present (GI) Extremity: GENERAL: Yes normal exam except as noted and Yes edema (2+ bilateral) Neuro: COMMON NORMALS: moves all extremities SENSORIUM/ORIENTATION: Yes alert and No Orientation impaired Psych: COMMON NORMALS: mental status grossly normal and Normal thought process present THOUGHT PROCESS: Normal thought process present Course Vital Signs: Vital signs: Vital Signs Temperature 97.8 F 06/03/22 15:44 Pulse Rate 83 06/03/22 15:44 Respiratory Rate 15 06/03/22 15:44 Blood Pressure 142/93 06/03/22 15:44 Pulse Oximetry 94 06/03/22 15:44 Oxygen Delivery Me thod 06/03/22 15:37 Oxygen Flow Rate 6 06/03/22 11:41 MDM - Weakness Medical Decision Making 76-year-old gentleman with complex history presenting with generalized symptoms. Neurologic exam is nonfocal. EKG notable for atrial fibrillation with aberrant conduction, no STEMI. Hematologic panel with minimal leukocytosis. Metabolic panel with elevated lactic acid which was improved after fluids, T bili elevated as is BNP. Chest x-ray with increased mass, no lobar consolidation or pneumothorax. CT imaging notable for worsening cancer and likely malignant pericardial fluid collection. Medications including treatment for respiratory symptoms, antibiotics given. Patient admitted for further management in fair condition. Medical Records I reviewed the patient's medical records. Lab Data I reviewed the patient's lab results. : 06/03/22 02:49 06/03/22 02:49 Radiology Impressions Chest X-Ray 05/30/22 17:12 IMPRESSION: 1. Increased size of 7.1 x 6.5 cm mass in the left mid lung field suggesting possible residual/recurrent tumor versus rounded pneumonia. 2. Interval appearance of jxvi-hr-ibdkzfyl loculated left pleural fluid collection. Possible malignant effusion. 3. Stable pleural and/or parenchymal peripheral scarring in the upper lung rivas bilaterally. 4. Stable right Mediport catheter. 5. Stable COPD . Chest/Abdomen/Pelvis CT 05/30/22 17:57 IMPRESSION: 1. Interval increased size of 8.6 x 6.6 x 5.4 cm left mid lung field lesion with central low-density most consistent with lung cancer with central necrosis. 2. Interval appearance of extensive bilateral pleural metastasis. 3. Interval appearance of yxry-jx-hjbjqcbn pericardial fluid collection measuring 25 Hounsfield units which could represent complex fluid such as hemorrhagic pericardial fluid and/or malignant pericardial fluid collection. 4. Small right pleural fluid collection. 5. Mild right basilar atelectasis and/or pneumonia with calcified granulomas.. 6. 3.3 cm rounded atelectasis versus rounded pneumonia versus tumor in the right lower lobe, axial series 7, image 391. 7. Mild left hilar adenopathy most consistent with lymph node metastasis. 8. Occlusive pulmonary segmental pulmonary emboli in posterior segment right upper lobe and posterior segment right lower lobe. 9. Severe right heart strain with RV/LV ratio 3.0. IMPRESSION: 1. Mild anasarca consistent with right heart failure versus hypoproteinemia versus renal failure. 2. Mild four-quadrant ascites. 3. There is a nutmeg liver appearance with enlarged liver, diminished parenchymal enhancement, enlarged inferior vena cava and hepatic veins and heterogeneous liver appearance consistent with passive hepatic congestion severe right heart strain and/or prominent pericardial pathology. ADDENDUM: 05/30/221927 THIS REPORT CONTAINS FINDINGS THAT MAY BE CRITICAL TO PATIENT CARE. The findings were verbally communicated via telephone conference with Elijah Melvin at 7:27 PM CDT on 05/30/2022. The findings were acknowledged and understood. Laboratory Results WBC 10.4 10^3/uL (4.0-10.0) H 05/30/22 17:45 RBC 4.12 10^6/uL (4.1-5.3) 05/30/22 17:45 Hgb 12.4 g/dL (11.7-16.6) 05/30/22 17:45 Hct 40.0 % (42.0-52.0) L 05/30/22 17:45 MCV 97.1 fl (80-94) H 05/30/22 17:45 MCH 30.1 pg (28.0-34.0) 05/30/22 17:45 MCHC 31.0 g/dL (30.0-36.0) 05/30/22 17:45 RDW 21.0 % (12.1-15.1) H 05/30/22 17:45 Plt Count 173 10^3/cmm (130-400) 05/30/22 17:45 MPV 10.2 fL (7.4-10.4) 05/30/22 17:45 Neut % (Auto) 82.4 % 05/30/22 17:45 Lymph % (Auto) 4.8 % 05/30/22 17:45 Avery % (Auto) 11.1 % 05/30/22 17:45 Eos % (Auto) 0.2 % 05/30/22 17:45 Baso % (Auto) 0.6 % 05/30/22 17:45 Neut # (Auto) 8.61 10^3/uL (1.8-7.7) H 05/30/22 17:45 Lymph # (Auto) 0.5 10^3/uL (0.8-4.8) L 05/30/22 17:45 Avery # (Auto) 1.2 10^3/uL (0.2-0.9) H 05/30/22 17:45 Eos # (Auto) 0.0 10^3/uL (0.0-0.8) 05/30/22 17:45 Baso # (Auto) 0.1 10^3/uL (0.0-0.1) 05/30/22 17:45 Nucleated RBC % (auto) 0.4 % 05/30/22 17:45 Nucleated RBCs # 0.0 /100WBC 05/30/22 17:45 Specimen Type Arterial 05/30/22 17:32 Sample Site Brachial, right 05/30/22 17:32 ABG pH 7.40 (7.35-7.45) 05/30/22 17:32 ABG pCO2 49.5 mmHg (35-45) H 05/30/22 17:32 ABG pO2 70.6 mmHg (80.0-100.0) L 05/30/22 17:32 ABG HCO3 30.3 mmol/L (22-26) H 05/30/22 17:32 ABG Base Excess 4.4 mmol/L (-2.0-2.0) H 05/30/22 17:32 Oc Test Pos 05/30/22 17:32 Hematocrit 39.2 % (42-52) L 05/30/22 17:32 O2 Delivery Device Nc 05/30/22 17:32 O2 Liters/Min 4.0 % 05/30/22 17:32 FiO2 36.0 % 05/30/22 17:32 Flight Manager ID Bd 05/30/22 17:32 Sodium 141 mmol/L (136-145) 05/30/22 17:45 Potassium 4.0 mmol/L (3.5-5.1) 05/30/22 17:45 Chloride 98 mmol/L (98-107) 05/30/22 17:45 Carbon Dioxide 31 mmol/L (22-29) H 05/30/22 17:45 Anion Gap 16.0 (5-19) 05/30/22 17:45 BUN 19 mg/dL (8-23) 05/30/22 17:45 Creatinine 1.1 mg/dL (0.7-1.2) 05/30/22 17:45 GFR Calculation Not Reportable 05/30/22 17:45 Glucose 139 mg/dL (65-115) H 05/30/22 17:45 POC Glucose 127 mg/dL (70-110) H 05/30/22 18:00 Estimat Average Glucose 103 05/30/22 17:45 Hemoglobin A1c 5.2 % (4.0-6.0) 05/30/22 17:45 Calculated Osmolality 297 mOsm/kg (285-295) H 05/30/22 17:45 Lactic Acid 3.4 mmol/L (0.5-2.2) H 05/30/22 17:45 Lactic Acid (Sepsis) 2.5 mmol/L (0.5-2.2) H 05/30/22 20:03 Calcium 8.8 mg/dL (8.5-10.5) 05/30/22 17:45 Magnesium 1.9 mg/dL (1.7-2.3) 05/30/22 17:45 Total Bilirubin 2.2 mg/dL (0.15-1.2) H 05/30/22 17:45 AST 19 U/L (0-40) 05/30/22 17:45 ALT 8 U/L (0-41) 05/30/22 17:45 Alkaline Phosphatase 160 U/L (40-130) H 05/30/22 17:45 Troponin T Baseline 40 ng/L (0-15) H 05/30/22 17:45 Troponin T 120 Minute 41.43 ng/L (0-15) H 05/30/22 20:03 Delta Troponin T 1.43 ABS# (0-10) 05/30/22 20:03 NT-Pro-B Natriuret Pep 27091 pg/mL (0-450) H 05/30/22 17:45 Total Protein 6.8 g/dL (6.6-8.7) 05/30/22 17:45 Albumin 2.6 g/dL (3.5-5.2) L 05/30/22 17:45 Globulin 4.2 g/dL (1.3-4.6) 05/30/22 17:45 Procalcitonin 0.17 ng/mL (0-0.5) 05/30/22 17:45 TSH 5.68 uIU/mL (0.27-4.20) H 05/30/22 17:45 SARS-CoV-2 Ag (Rapid) Negative (Negative) 05/30/22 18:00 Critical Care Time Critical Care Time: Critical Care Time: Yes Total Critical Care Time: 35 Attestation: Due to a high probability of clinically significant, possibly life threatening deterioration, the patient required my highest level of attention and preparedness to intervene emergently and I personally spent this critical care time directly and personally managing the patient. This critical care time included obtaining a history; examining the patient; pulse oximetry; ordering and review of laboratory and imaging studies; arranging urgent treatment with development of a management plan; evaluation of patient's response to treatment; frequent reassessment; and, discussions with other providers as applicable. It was exclusive of separately billable procedures. Discharge Plan Discharge Patient Disposition: Admitted As Inpatient Admit Provider: Bautista Fernando Clinical Impression: Atrial fibrillation with rapid ventricular response, Pulmonary emboli, Shortness of breath, Leukocytosis, Pneumonia, Cancer, metastatic to lung, Acute and chronic respiratory failure, Acidosis, lactic, Acute exacerbation of CHF (congestive heart failure), Pericardial effusion Condition: Fair Discharge Diet: Regular Discharge Activity: Increase activity as tolerated and Oxygen as instructed Coding Level of Care Code ED Telephonic Nurse Case Manager for Chg Fwd Exam Comprehensive
--- NOTE | 2022-05-30 17:12 | XRR_ITS ---
PROCEDURE INFORMATION: Exam: XR Chest Exam date and time: 05/30/2022 5:20 PM Age: 76 years old Clinical indication: Shortness of breath; Prior surgery; Surgery type: Port; Patient HX: Lung CA, colon CA; Additional info: SOB, weak TECHNIQUE: Imaging protocol: Radiologic exam of the chest. Views: 1 view. COMPARISON: CR XR chest 1V [id number] 06/05/2021 3:50 PM FINDINGS: Tubes, catheters and devices: Stable right Mediport catheter. Lungs: Increased size of 7.1 x 6.5 cm mass in the left mid lung field suggesting possible residual/recurrent tumor versus rounded pneumonia. Stable COPD . Pleural spaces: Interval appearance of gwzu-wa-kttjyrrh loculated left pleural fluid collection. Possible malignant effusion. Stable pleural and/or parenchymal peripheral scarring in the upper lung rivas bilaterally. Heart/Mediastinum: Unremarkable. No cardiomegaly. Bones/joints: Unremarkable. XR/XR chest 1V portable [id number] IMPRESSION: 1. Increased size of 7.1 x 6.5 cm mass in the left mid lung field suggesting possible residual/recurrent tumor versus rounded pneumonia. 2. Interval appearance of ckoz-ny-hipkjhym loculated left pleural fluid collection. Possible malignant effusion. 3. Stable pleural and/or parenchymal peripheral scarring in the upper lung rivas bilaterally. 4. Stable right Mediport catheter. 5. Stable COPD .
--- NOTE | 2022-05-30 17:13 | ECG_ITS ---
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1945 Requested By: Elijah Melvin Order Number: [id number] Reading MD: Measurements Intervals [place] Rate: 124 P: [place]: QRS: 171 QRSD: 124 T: -15 QT: 324 QTc: 466 Interpretive Statements ATRIAL FIBRILLATION WITH RAPID VENTRICULAR RESPONSE RIGHT AXIS DEVIATION [QRS AXIS > 100] RIGHT BUNDLE BRANCH BLOCK [120+ ms QRS DURATION, UPRIGHT V1, 40+ ms S IN I/aVL/V4/V5/V6] PROBABLE ANTEROSEPTAL MYOCARDIAL INFARCTION , OF INDETERMINATE AGE [35 ms Q WAVE IN V1-V4] Compared to ECG 12/03/2020 05:57:03 Right-axis deviation now present Right bundle-branch block now present Myocardial infarct finding now present Incomplete right bundle-branch block no longer present ST (T wave) deviation no longer present [id number]
[2022-05-30] MEDS: ipratropium-albuterol 3 mL Neb INHALATION ×2 (17:15→23:15)
[2022-05-30] MEDS: sodium chloride 0.9% 500 ML IV (17:35)
[2022-05-30] MEDS: metoprolol tartrate 1 mg/1 mL SDV 5 mL 5 MG IVP ×2 (17:36→21:00)
[2022-05-30 17:40] LABS: ABG PCO2 49.5 mmHg (35-45); Arterial Blood Gas Hematocrit 39.2 % (42-52); Base Excess ABG 4.4 mmol/L (-2.0-2.0); Blood Gas Allen Test Pos; Blood Gas Operator Identificat BD; Blood Gas Sample Site Brachial, right; Blood Gas Sample Type Arterial; HCO3 ABG 30.3 mmol/L (22-26); Oxygen Device NC; PO2 ABG 70.6 mmHg (80.0-100.0)
--- NOTE | 2022-05-30 17:57 | CTR_ITS ---
PROCEDURE INFORMATION: Exam: CTA Chest With Contrast Exam date and time: 05/30/2022 6:43 PM Age: 76 years old Clinical indication: Abdominal tenderness; Shortness of breath; Prior surgery; Surgery type: Hernia repair; Additional info: Afib, increased SOB, HX cancer, not taking his eliquis TECHNIQUE: Imaging protocol: Computed tomographic angiography of the chest with contrast. 3D rendering (Not supervised by radiologist): MIP and/or 3D reconstructed images were created by the technologist. Radiation optimization: All CT scans at this facility use at least one of these dose optimization techniques: automated exposure control; mA and/or kV adjustment per patient size (includes targeted exams where dose is matched to clinical indication); or iterative reconstruction. Contrast material: OMNIPAQUE 350; Contrast volume: 95 ml; Contrast route: INTRAVENOUS (IV); COMPARISON: CT chest w con* [id number] 12/02/2020 11:08 PM RADIATION DOSE METRICS: Total DLP (mGy-cm): 885.18 FINDINGS: Pulmonary arteries: Occlusive pulmonary segmental pulmonary emboli in posterior segment right upper lobe and posterior segment right lower lobe. Aorta: Calcification of the thoracic aorta and/or great vessels consistent with atherosclerotic vessel disease. Lungs: Stable severe COPD . Interval increased size of 8.6 x 6.6 x 5.4 cm left mid lung field lesion with central low-density most consistent with lung cancer with central necrosis. Mild right basilar atelectasis and/or pneumonia with calcified granulomas.. 3.3 cm rounded atelectasis versus rounded pneumonia versus tumor in the right lower lobe, axial series 7, image 391. Pleural spaces: Interval appearance of extensive bilateral pleural metastasis. Small right pleural fluid collection. Heart: Interval appearance of pzrw-nu-fvswmuna pericardial fluid collection which could represent malignant pericarditis. Moderate calcified coronary artery disease. Severe right heart strain with RV/LV ratio 3.0. Lymph nodes: Mild left hilar adenopathy most consistent with lymph node metastasis. Bones/joints: Dextroscoliosis. Soft tissues: Unremarkable. PROCEDURE INFORMATION: Exam: CT Abdomen And Pelvis With Contrast Exam date and time: 05/30/2022 6:43 PM Age: 76 years old Clinical indication: Abdominal tenderness; Shortness of breath; Prior surgery; Surgery type: Hernia repair; Additional info: Afib, increased SOB, HX cancer, not taking his eliquis TECHNIQUE: Imaging protocol: Computed tomography of the abdomen and pelvis with contrast. Radiation optimization: All CT scans at this facility use at least one of these dose optimization techniques: automated exposure control; mA and/or kV adjustment per patient size (includes targeted exams where dose is matched to clinical indication); or iterative reconstruction. Contrast material: OMNIPAQUE 350; Contrast volume: 95 ml; Contrast route: INTRAVENOUS (IV); COMPARISON: CT abdomen pelvis w con* [id number] 12/27/2018 1:24 PM RADIATION DOSE METRICS: Total DLP (mGy-cm): 885.18 FINDINGS: Heart: Mild anasarca consistent with right heart failure versus hypoproteinemia versus renal failure. There is a nutmeg liver appearance with enlarged liver, diminished parenchymal enhancement, enlarged inferior vena cava and hepatic veins and heterogeneous liver appearance consistent with passive hepatic congestion severe right heart strain and/or prominent pericardial pathology. Liver: Normal. No mass. Gallbladder and bile ducts: Normal. No calcified stones. No ductal dilation. Pancreas: Normal. No ductal dilation. Spleen: Normal. No splenomegaly. Adrenal glands: Normal. No mass. Kidneys and ureters: Normal. No hydronephrosis. Stomach and bowel: Unremarkable. No obstruction. No mucosal thickening. Appendix: No evidence of appendicitis. Intraperitoneal space: Mild four-quadrant ascites. Vasculature: Calcification of the abdominal aorta and/or iliac arteries consistent with atherosclerotic vessel disease. Lymph nodes: Unremarkable. No enlarged lymph nodes. Urinary bladder: Unremarkable as visualized. Reproductive: Unremarkable as visualized. Bones/joints: Unremarkable. No acute fracture. Soft tissues: See Heart finding. CT/CT angio chest w abd pel w con IMPRESSION: 1. Interval increased size of 8.6 x 6.6 x 5.4 cm left mid lung field lesion with central low-density most consistent with lung cancer with central necrosis. 2. Interval appearance of extensive bilateral pleural metastasis. 3. Interval appearance of bfnw-lv-reymrihz pericardial fluid collection measuring 25 Hounsfield units which could represent complex fluid such as hemorrhagic pericardial fluid and/or malignant pericardial fluid collection. 4. Small right pleural fluid collection. 5. Mild right basilar atelectasis and/or pneumonia with calcified granulomas.. 6. 3.3 cm rounded atelectasis versus rounded pneumonia versus tumor in the right lower lobe, axial series 7, image 391. 7. Mild left hilar adenopathy most consistent with lymph node metastasis. 8. Occlusive pulmonary segmental pulmonary emboli in posterior segment right upper lobe and posterior segment right lower lobe. 9. Severe right heart strain with RV/LV ratio 3.0. IMPRESSION: 1. Mild anasarca consistent with right heart failure versus hypoproteinemia versus renal failure. 2. Mild four-quadrant ascites. 3. There is a nutmeg liver appearance with enlarged liver, diminished parenchymal enhancement, enlarged inferior vena cava and hepatic veins and heterogeneous liver appearance consistent with passive hepatic congestion severe right heart strain and/or prominent pericardial pathology.
[2022-05-30 17:58] LABS: Basophils # 0.1 10^3/uL (0.0-0.1); Basophils % 0.6 %; Eosinophils % 0.2 %; Hemoglobin 12.4 g/dL (11.7-16.6); Lymphocytes # 0.5 10^3/uL (0.8-4.8); Lymphocytes % 4.8 %; Mean Corpuscular Hemoglobin 30.1 pg (28.0-34.0); Mean Corpuscular Volume 97.1 fl (80-94); Mean Platelet Volume 10.2 fL (7.4-10.4); Monocytes # 1.2 10^3/uL (0.2-0.9); Monocytes % 11.1 %; Neutrophils # 8.61 10^3/uL (1.8-7.7); Neutrophils % 82.4 %; Nucleated Red Blood Cells % 0.4 %; Platelet Count 173 10^3/cmm (130-400); Red Blood Count 4.12 10^6/uL (4.1-5.3); White Blood Count 10.4 10^3/uL (4.0-10.0)
[2022-05-30 18:04] LABS: Glucose Point of Care 127 mg/dL (70-110)
[2022-05-30 18:17] LABS: Lactic Sepsis W/Reflex 3.4 mmol/L (0.5-2.2)
[2022-05-30 18:19] LABS: Troponin(5th) Baseline 40 ng/L (0-15)
[2022-05-30 18:27] LABS: Alanine Aminotransferase 8 U/L (0-41); Albumin Level 2.6 g/dL (3.5-5.2); Alkaline Phosphatase 160 U/L (40-130); Aspartate Amino Transferase 19 U/L (0-40); Blood Urea Nitrogen 19 mg/dL (8-23); Calcium 8.8 mg/dL (8.5-10.5); Carbon Dioxide 31 mmol/L (22-29); Chloride 98 mmol/L (98-107); Globulin 4.2 g/dL (1.3-4.6); Glucose 139 mg/dL (65-115); Magnesium 1.9 mg/dL (1.7-2.3); NT Pro B Type Natriuretic Pept 14583 pg/mL (0-450); Osmolality Calculated 297 mOsm/kg (285-295); Sodium 141 mmol/L (136-145); Thyroid Stimulating Hormone 5.68 uIU/mL (0.27-4.20); Total Bilirubin 2.2 mg/dL (0.15-1.2); Total Protein 6.8 g/dL (6.6-8.7)
[2022-05-30 18:33] LABS: SARS Covid-2 Antigen Negative (Negative)
[2022-05-30 18:39] LABS: Reflex Lactate Order REFLEX LACTIC ORDERD
[2022-05-30] MEDS: iohexol 350 mg/mL 100 mL Btl IV (18:48)
--- NOTE | 2022-05-30 19:13 | ECG_ITS ---
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 Measurements Intervals [place] Rate: 106 P: ME: QRS: 242 QRSD: 127 T: 28 QT: 373 QTc: 497 Interpretive Statements ATRIAL FIBRILLATION WITH RAPID VENTRICULAR RESPONSE RIGHT AXIS DEVIATION [QRS AXIS > 100] RIGHT BUNDLE BRANCH BLOCK [120+ ms QRS DURATION, UPRIGHT V1, 40+ ms S IN I/aVL/V4/V5/V6] ANTEROSEPTAL MYOCARDIAL INFARCTION , OF INDETERMINATE AGE [40+ ms Q WAVE IN V1-V4] ST DEPRESSION, CONSIDER SUBENDOCARDIAL INJURY [0.1+ mV ST DEPRESSION] Compared to ECG 05/30/2022 17:22:06 ST (T wave) deviation now present Myocardial infarct finding still present Electronically Signed On 06-01-2022 0:17:42 CDT by Erica Orosco M.D. [id number]
[2022-05-30 19:55] LABS: Procalcitonin 0.17 ng/mL (0-0.5)
[2022-05-30 20:25] LABS: Lactic Acid level (Lactate) 2.5 mmol/L (0.5-2.2); Troponin 5 2HR 41.43 ng/L (0-15)
[2022-05-30 20:35] LABS: Troponin 5 2HR Delta 1.43 ABS# (0-10)
--- NOTE | 2022-05-30 20:36 | P.HP_ITS ---
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 Patient tells me that he lives at [place], he lives with his daughter who is disabled, his sister helps out. He tells me that he has been developing progressive weakness, poor appetite, increased shortness of breath at rest with exertion. He tells me today he could not get out of bed due to weakness and shortness of breath. No fevers, chills, does report shortness of breath and chest pain with exertion. Review of Systems Const: Reports: fatigue and malaise; Denies: fever(s) Card: Reports: chest pain Resp: Reports: dyspnea GI: Denies: abdominal pain Medications/Allergies Home Medications Medication Instructions Recorded Confirmed Last Taken Type albuterol sulfate 90 mcg/actuation 2 puff inhalation Q4H PRN 12/03/20 05/30/22 01/28/21 06:00 History aerosol inhaler (ProAir HFA) Shortness Of Breath hydrocodone 5 mg-acetaminophen 325 1 tab PO Q6H PRN pain #20 tabs 01/28/21 05/30/22 Unknown Rx mg tablet apixaban 5 mg tablet (Eliquis) 5 mg PO BID 02/18/21 05/30/22 Unknown History atorvastatin 40 mg tablet 40 mg PO DAILY 02/18/21 05/30/22 Unknown History metoprolol tartrate 25 mg tablet 25 mg PO BID 02/18/21 05/30/22 Unknown History albuterol sulfate 2.5 mg (3 mL) inhalation DAILY PRN 03/02/22 05/30/22 Unknown Rx shortness of breath or wheezing #90 mL budesonide 0.5 mg/2 mL suspension 0.5 mg (2 mL) inhalation BID #60 mL 03/02/22 05/30/22 Unknown Rx for nebulization formoterol fumarate 20 mcg/2 mL 20 mcg (2 mL) inhalation BID #120 03/02/22 05/30/22 Unknown Rx solution for nebulization mL (Perforomist) revefenacin 175 mcg/3 mL solution 175 mcg (3 mL) inhalation DAILY 03/02/22 0 05/30/22 Unknown Rx for nebulization (Yupelri) #90 mL Allergies Allergy/AdvReac Type Severity Reaction Status Date / Time Penicillins Allergy Unknown Verified 05/28/21 10:59 PFSH Acute PFSH: Medical History Cardiomyopathy Carotid stenosis, bilateral Colon polyps COPD (chronic obstructive pulmonary disease) Rectal cancer Surgical History H/O hernia repair History of colonoscopy with polypectomy 2019 History of lung biopsy Port-A-Cath in place (01/28/21) Family History Daughter No problems noted. Brother Cancer colon cancer Social History Smoking and tobacco status: current every day smoker cigarettes Packs smoked per day: 0.5 Years cigarettes smoked: 60 [ Other cigarette details: Hx of 1 PPD x 60 Years] Quit status (tobacco): considering quitting Second hand smoke exposure: Yes Smoking risk assessment/counseling performed?: Yes Alcohol intake: never Counseling given: No Counseling given: No Caregiver/support person: Yes Lives independently: Yes Household members: family Housing: House Marital status: / service: No Current occupational status: retired Pets and animals: No History of recent travel: No Current gender identity: Male Vitals/I&O/Wt Last Vital Signs Temp 97.8 F 05/30/22 17:24 Pulse 95 05/30/22 18:23 Resp 25 H 05/30/22 18:23 BP 116/75 05/30/22 18:23 Pulse Ox 94 05/30/22 18:23 O2 Del Method 05/30/22 18:23 O2 Flow Rate 4 05/30/22 18:23 Weight last 48 hrs Weight 63.503 kg Physical Exam Const: COMMON NORMALS: no acute distress and patient oriented x3 GENERAL APPEARANCE: ill appearing and frail appearing HENMT: COMMON NORMALS: normocephalic HEAD & SCALP: normocephalic Eye: COMMON NORMALS: Equal, round and reactive pupils present Neck/C-Spine: COMMON NORMALS: no JVD Resp: COMMON NORMALS: normal respiratory effort, No retractions and No use of accessory muscles AUSCULTATION: wheezes Cardio: COMMON NORMALS: regular rate, regular rhythm, S1 normal heart sound present and S2 normal heart sound present RATE: regular rate RHYTHM: regu lar rhythm HEART SOUNDS: S1 normal heart sound present and S2 normal heart sound present GI: COMMON NORMALS: Normal to inspection, nondistended, normoactive bowel sounds present, Soft to palpation, non-tender and no bruits PALPATION: Yes Soft to palpation and Yes No hepatosplenomegaly present Extremity: NARRATIVE EXTREMITY EXAM: 2+ pitting edema bilateral lower extremity Neuro: COMMON NORMALS: patient oriented x3, CN's II-XII intact bilaterally and moves all extremities Psych: COMMON NORMALS: mental status grossly normal Data : 05/30/22 17:45 05/30/22 17:45 Micro: Microbiology 05/30/22 18:20 Blood Culture - Preliminary Blood SPECIMEN COLLECTED 05/30/22 18:18 Blood Culture - Preliminary Blood SPECIMEN COLLECTED A&P Assessment and plan (1) Atrial fibrillation with rapid ventricular response: (2) Pulmonary emboli: (3) Acute respiratory failure with hypoxia: (4) CHF exacerbation: (5) COPD (chronic obstructive pulmonary disease): (6) Mass of lower lobe of left lung: (7) HTN (hypertension): (8) Acidosis, lactic: (9) Pneumonia: (10) Rectal cancer: (11) Lung cancer: (12) Pericardial effusion: (13) Cardiac cirrhosis: Plan Acute hypoxic respiratory failure -Multifactorial, from-occlusive pulmonary emboli on the right, with failure of anticoagulation as patient has been on Eliquis for atrial fibrillation, with evidence of right heart strain -Secondary to pneumonia -Secondary to CHF exacerbation, given bilateral extremity edema, elevated BNP, with evidence of right heart strain given pulmonary embolism -Secondary to COPD exacerbation -Secondary to lung mass, likely postobstructive pneumonia -Potentially pericardial effusion could be playing a role 1. Interval increased size of 8.6 x 6.6 x 5.4 cm left mid lung field lesion with central low-density most consistent with lung cancer with central necrosis. 2. Interval appearance of extensive bilateral pleural metastasis. 3. Interval appearance of [id number] pericardial fluid collection measuring 25 Hounsfield units which could represent complex fluid such as hemorrhagic pericardial fluid and/or malignant pericardial fluid collection. ? 4. Small right pleural fluid collection. 5. Mild right basilar atelectasis and/or pneumonia with calcified granulomas.. 6. 3.3 cm rounded atelectasis versus rounded pneumonia versus tumor in the right lower lobe, axial series 7, image 391. 7. Mild left hilar adenopathy most consistent with lymph node metastasis. 8. Occlusive pulmonary segmental pulmonary emboli in posterior segment right upper lobe and posterior segment right lower lobe. 9. Severe right heart strain with RV/LV ratio 3.0. IMPRESSION: 1. Mild anasarca consistent with right heart failure versus hypoproteinemia versus renal failure. 2. Mild four-quadrant ascites. 3. There is a nutmeg liver appearance with enlarged liver, diminished Plan -Admit to ICU -Monitor respiratory status closely -Continue vancomycin, cefepime -Sputum cultures, blood cultures, monitor for fevers -Patient has failed anticoagulation with Eliquis, switch to therapeutic Lovenox -Patient has a moderate pericardial effusion, will do a stat echocardiogram -Does have evidence of fluid overload however given pericardial effusion we will carefully diurese, give 1 dose of 20 mg IV push Lasix, arterial and output -Monitor urine output, fluid restrictions, monitor potassium, monitor magnesium we will potentially diurese more depending on what the echocardiogram shows -COPD exacerbation has received Solu-Medrol continue prednisone -Postobstructive pneumonia as above -A. fib with RVR, had received metoprolol 5 mg IV push, currently heart rates A. fib, well-controlled continue home metoprolol -Has evidence of anasarca, liver cirrhosis, likely evidence of right heart strain, right-sided heart failure .-In terms of his cancer patient tells me he does not want any more treatment -DNR/DNI -Lovenox for DVT prophylaxis Attestations Medical Necessity Statement*: Patient requires hospitalization, inpatient, greater than 2 midnights, for acute hypoxic respiratory failure, pulmonary embolism on anticoagulation, lung mass, pneumonia, CHF, COPD, Coding Level of Care Code Acute Diamond Sizer And Sorter for Chg Fwd Diagnoses Atrial fibrillation with rapid ventricular response I48.91 Pulmonary emboli I26.99 Acute respiratory failure with hypoxia J96.01 CHF exacerbation I50.9 COPD (chronic obstructive pulmonary disease) J44.9 Mass of lower lobe of left lung R91.8 HTN (hypertension) I10 Acidosis, lactic E87.2 Pneumonia J18.9 Rectal cancer C20 Lung cancer C34.90 Pericardial effusion I31.3 Cardiac cirrhosis K76.1
[2022-05-30] MEDS: cefepime 2,000 MG in sodium chloride 0.9% (plus) 50 ML 100 MG IV (21:00)
[2022-05-30] MEDS: enoxaparin 80 mg/0.8 mL Syringe 65 MG SUBCUT (21:00)
--- NOTE | 2022-05-30 21:18 | USCV_ITS ---
Junior Rambo Age: 76 Gender: M : 1945 Exam Date: 05/30/2022 22:45 Ordering Phys: Bautista Fernando MD Technologist: Ana Whitley [place] [facility] [place]ication: SOB BP: 121 / 86 HR: 75 Rhythm: Sinus Technical Quality: Adequate MEASUREMENTS (Male / Female) Normal Values 2D ECHO LV Diastolic Diameter PLAX 3.1 cm 4.2 - 5.9 / 3.9 - 5.3 cm LV Systolic Diameter PLAX 1.9 cm LV Chamber Size 2.9 cm IVS Diastolic Thickness 0.9 cm 0.6 - 1.0 / 0.6 - 0.9 cm IVS Systolic Thickness 1.0 cm LVPW Diastolic Thickness 1.0 cm 0.6 - 1.0 / 0.6 - 0.9 cm LVPW Systolic Thickness 1.4 cm RV Chamber Size 3.3 cm LVOT Diameter 2.1 cm LV Ejection Fraction 2D Teich 68.6 % LV Ejection Fraction MOD 2C 63.0 % LV Ejection Fraction 2C AL 63.0 % LA Diameter 3.4 cm LA Width 2.9 cm LA Height 4.1 cm RA Width 3.9 cm RA Height 4.6 cm Aorta at Sinotubular Diameter 2.6 cm IVC Diameter 1.8 cm M-MODE Aortic Annulus Diameter 3.0 cm LA Ao Ratio MM 1.2 MV E Point Septal Separation 0.0 cm DOPPLER AV Peak Velocity 99.0 cm/s LVOT Peak Velocity 60.0 cm/s AV Area Cont Eq vti 1.9 cm squared AV Area Cont Eq pk 2.1 cm squared MV Area PHT 3.4 cm squared MV E' Velocity 47.0 cm/s Mitral E to MV E' Ratio 7.7 Mitral E to LV E' Lateral Ratio 7.4 Mitral E to LV E' Septal Ratio 8.0 TR Peak Velocity 406.0 cm/s TR Peak Gradient 65.9 mmHg TR Mean Velocity 248.7 cm/s TR Mean Gradient 28.7 mmHg TR Velocity Time Integral 110.3 cm TV Peak E Velocity 45.0 cm/s Right Atrial Pressure 15.0 mmHg Pulmonary Artery Systolic Pressu 80.9 mmHg RV Acceleration Time 0.1 s RV Ejection Time 0.3 s RV AcT/ET 0.5 FINDINGS Left Ventricle Normal left ventricular size and systolic function, EF 68 %. No regional wall motion abnormalities. Right Ventricle Dilated right ventricle with a paradoxical movements of the septum Right Atrium Dilated right atrium Left Atrium Normal left atrial size. Mitral Valve No gross abnormalities noted Aortic Valve No gross abnormalities noted Tricuspid Valve Thickened tricuspid valve. Moderate tricuspid valve regurgitation. Severe pulmonary hypertension with estimated pulmonary artery peak systolic pressure of 81 mmHg Pulmonic Valve Could not be visualized well Pericardium Small pericardial effusion. Aorta Normal aortic annulus size. IVC Normal IVC diameter CONCLUSIONS Normal left ventricular size and systolic function, EF 68 %. No regional wall motion abnormalities. Dilated right ventricle with a paradoxical movements of the septum-features suggesting right ventricular pressure overload/cor pulmonale Thickened tricuspid valve. Moderate tricuspid valve regurgitation. Severe pulmonary hypertension with estimated pulmonary artery peak systolic pressure of 81 mmHg Small pericardial effusion. Compared to the study from 12/04/2020, the development of pulmonary hypertension appears to be new. Dr Erica Orosco MD FACC (Electronically Signed) Final Date: 31 May 2022 09:03 S
--- NOTE | 2022-05-30 21:44 | PC.NURSE ---
Transfer Note Patient transferred to ICU from ER via stretcher. Handoff received from SHELLI Barreto. Patient oriented to environment and equipment. Covering service notified. Orders reviewed and will continue to monitor. Patient alert/oriented on 4LNC at time of transfer. No belongings transferred with patient to ICU. No wounds noted at this time.
--- NOTE | 2022-05-30 21:44 | PC.PHAR ---
Pharmacokinetic dosing service Date: 05/30/22 Time: 2144 Objective: Patient: Junior Ricks Floor: ICU-7 Age: 76 yo Serum creatinine: 1.1 mg/dL Height: 69.0 Inches Weight (kg): 63.503 Diagnosis: Relevant medical/social history: Cultures and sensitivities: Other labs: Assessment: IBW (kg): 70.70 Dosing wt(kg): 63.503 Estimated Creatinine clearance (ml/min): 49.7 CRCL method: Cockcroft and Gault using ibw(default). Drug selected: Vancomycin Loading dose (mg): 0 Vd (liters): 57.2 (factor used: 0.9 L/kg) Chato (hr-1): 0.046 Half life (hrs): 15.07 Recommended dose: 1000 mg Interval: 18 hrs Infusion time (hrs): 1.5 Predicted peak (mcg/mL): 30.0 Predicted trough (mcg/mL): 14.04 Total body weight is being used for vancomycin dosing. Renal function is stable [ ] /unstable [ ] Recommendations: Give Vancomycin 1000 mg q 18 hrs with an expected Cpeak of 30.0 mcg/ml and an expected Ctrough of 14.04 mcg/ml Renal dosing of other antibiotics (review renal dosing of other medications and list guidelines here): Thank you for the consult, will continue to follow. Signature: Mine Lizarraga [facility]
[2022-05-30 21:58] LABS: Estmated Average Glucose 103; Hemoglobin A1C 5.2 % (4.0-6.0)
[2022-05-30] MEDS: pantoprazole 40 mg SDV IVP (23:13)
[2022-05-30] MEDS: vancomycin 1,000 MG in sodium chloride 0.9% 250 ML 250 MG IV (23:14)
[2022-05-30] MEDS: FUROsemide 10 mg/mL SDV 2mL 20 MG IVP (23:14)
[2022-05-31] VITALS (84 sets, daily range): BP systolic 105–148; BP diastolic 62–104; PULSE 32–113; RESP 12–32; TEMP 36.5; O2SAT 80–100
[2022-05-31 01:07] LABS: Add Urine Microscopic? NO; Bilirubin Urine Neg (Negative); Blood Urine Neg (Negative); Charge for UA Resulting for Rev; Glucose Urine UA Norm (Normal); Ketones Urine Negative (Negative); Leukocyte Esterase Urine Negative (Negative); Nitrate Urine Negative (Negative); Protein Urine Neg (Negative); Urine Appearance Clear (CLEAR); Urine Color Yellow (Yellow); Urobilinogen Urine 1 mg/dL (Negative); pH Urine 5 (5-7)
[2022-05-31 01:07] LABS: Basophils % 0.2 %; Hematocrit 39.7 % (42.0-52.0); Hemoglobin 12.2 g/dL (11.7-16.6); Lymphocytes # 0.2 10^3/uL (0.8-4.8); Lymphocytes % 2.4 %; Mean Corpuscular HGB Conc 30.7 g/dL (30.0-36.0); Mean Corpuscular Volume 97.8 fl (80-94); Mean Platelet Volume 10.6 fL (7.4-10.4); Monocytes # 0.1 10^3/uL (0.2-0.9); Monocytes % 1.3 %; Neutrophils # 9.16 10^3/uL (1.8-7.7); Neutrophils % 95.4 %; Nucleated Red Blood Cells % 0.2 %; Platelet Count 167 10^3/cmm (130-400); Red Blood Count 4.06 10^6/uL (4.1-5.3); Red Cell Distribution Width 21.1 % (12.1-15.1); White Blood Count 9.6 10^3/uL (4.0-10.0)
[2022-05-31 01:28] LABS: Anion Gap 15.6 (5-19); Blood Urea Nitrogen 21 mg/dL (8-23); Calcium 8.4 mg/dL (8.5-10.5); Carbon Dioxide 27 mmol/L (22-29); Chloride 98 mmol/L (98-107); Glucose 201 mg/dL (65-115); Magnesium 1.8 mg/dL (1.7-2.3); Osmolality Calculated 293 mOsm/kg (285-295); Phosphorus 2.5 mg/dL (2.5-4.5); Potassium 3.6 mmol/L (3.5-5.1); Sodium 137 mmol/L (136-145)
[2022-05-31 01:29] LABS: Troponin 5 6HR 37.88 ng/L (0-15)
[2022-05-31 01:32] LABS: Troponin 5 6HR Delta -2.12 ng/L (0-12)
[2022-05-31] MEDS: ipratropium-albuterol 3 mL Neb INHALATION ×6 (03:02→23:40)
--- NOTE | 2022-05-31 06:59 | PC.NURSE ---
Shift Note Frequent safety and comfort rounds continue. Orders and/or nursing care completed as indicated. Patient monitored for response to intervention and treatment(s). Education provided includes oxygen requirements. Patient verbalized understanding of teaching. Patient had an uneventful night he remains alert/oriented x4 on 4LNC. No wounds or skin issues noted at this time. Will continue to monitor.
[2022-05-31] MEDS: budesonide 0.5 mg/2 mL Neb INHALATION ×2 (07:43→20:12)
[2022-05-31] MEDS: cefepime 2,000 MG in sodium chloride 0.9% (plus) 50 ML 100 MG IV ×2 (07:58→19:42)
[2022-05-31] MEDS: predniSONE 20 mg Tablet 40 MG PO (08:01)
[2022-05-31] MEDS: atorvastatin 40 mg Tablet PO (08:01)
[2022-05-31] MEDS: metoprolol tartrate 25 mg Tablet PO ×2 (08:01→17:05)
[2022-05-31] MEDS: enoxaparin 60 mg/0.6 mL Syringe SUBCUT (08:01)
[2022-05-31] MEDS: vancomycin 1,000 MG in sodium chloride 0.9% 250 ML 250 MG IV (16:50)
--- NOTE | 2022-05-31 20:13 | PM.PN ---
Subjective Subjective: He is feeling little bit better. Feeling more comfortable in terms of breathing with oxygen supplementation. Denies chest pain or pressure. Reports in terms of his cancer he would not want to try to pursue additional treatments. In terms of any additional medical procedures would have to consider them on as needed basis. Vitals/I&O/Wt Last Vital Signs Temp 97.5 F L 05/30/22 22:00 Pulse 86 05/31/22 20:12 Resp 18 05/31/22 20:12 BP 121/65 05/31/22 17:00 Pulse Ox 94 05/31/22 20:12 O2 Del Method 05/31/22 20:12 O2 Flow Rate 7 05/31/22 20:12 05/31/22 05/31/22 05/31/22 06:59 14:59 22:59 Intake Total 650 / 1200 250 / 250 600 / 850 Output Total 750 / 750 Balance -100 / 450 250 / 250 600 / 850 Weight last 48 hrs Weight 75.41 kg Weight 63.503 kg Physical Exam Const: COMMON NORMALS: patient oriented x3 and alert GENERAL APPEARANCE: cooperative and frail appearing ORIENTATION/CONSCIOUSNESS: Yes awake OTHER: Nasal cannula oxygen HENMT: COMMON NORMALS: oropharynx normal Neck/C-Spine: COMMON NORMALS: no JVD Chest: OTHER: Right chest Port-A-Cath Resp: COMMON NORMALS: normal respiratory effort and clear to auscultation bilaterally AUSCULTATION: clear to auscultation bilaterally Cardio: COMMON NORMALS: no JVD, regular rhythm, S1 normal heart sound present, S2 normal heart sound present and No murmurs present (Cardio) RHYTHM: regular rhythm HEART SOUNDS: S1 normal heart sound present and S2 normal heart sound present GI: COMMON NORMALS: Normal to inspection, nondistended, normoactive bowel sounds present, Soft to palpation and non-tender PALPATION: Yes Soft to palpation Extremity: COMMON NORMALS: no joint enlargement and no pedal edema OTHER: Mild pedal edema Neuro: COMMON NORMALS: patient oriented x3 and moves all extremities SENSORIUM/ORIENTATION: Yes alert Skin: COMMON NORMALS: no rashes or lesions noted GENERAL SKIN EXAM: no rashes or lesions noted Data : 05/31/22 00:58 05/31/22 00:58 Micro: Microbiology 05/30/22 18:20 Blood Culture - Preliminary Blood NEGATIVE TO DATE 05/30/22 18:18 Blood Culture - Preliminary Blood NEGATIVE TO DATE 05/30/22 23:20 MRSA Culture - Final Nose A&P Assessment and plan (1) Acute respiratory failure with hypoxia: Multifactorial with PE, pneumonia, COPD exacerbation, acute CHF, underlying lung malignancy. Continue oxygen support. Treat underlying conditions as below. (2) Pulmonary emboli: Discussed with him pericardial effusion, discussed on CT radiology having difficult time being able to distinguish possibility of hemorrhagic pericardial fluid, possibly malignant pericardial fluid collection. Discussed continuation of anticoagulation, risk in case of hemorrhagic effusion. Discussed assessment with echocardiogram. Echocardiogram with noted normal ejection fraction, no R WMA. Dilated right ventricle with paradoxical movements of septum with features suggesting of right ventricular pressure overload/cor pulmonale. Moderate TVR. Severe pulmonary hypertension. Small pericardial effusion. With pericardial effusion not excluded hemorrhagic pericardial effusion, but also with multifocal malignancy at risk of hemorrhage with tPA. Difficult situation. He also has limited goals of care. Currently continue anticoagulation. (3) Pneumonia: Continue cefepime, vancomycin. Collect sputum culture if able to provide. (4) COPD (chronic obstructive pulmonary disease): Continue empiric antibiotics, prednisone, budesonide, breathing treatments. (5) Pericardial effusion: On CT consideration of possibility of hemorrhagic effusion, possibility of malignant pericardial effusion. Discussed with him. Small pericardial effusion on echocardiogram. We will repeat limited cardiogram to track any changes. (6) Atrial fibrillation with rapid ventricular response: Continues on metoprolol 25 mg twice daily. Lovenox 75 mg twice daily. (7) CHF exacerbation: Received 20 mg IV Lasix. Reassess volume status and vital signs with consideration of further diuresis. 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 Critical Care Time: The high probability of a clinically significant, sudden or life threatening deterioration of the patient's respiratory, hemodynamic, cardiac system(s) required my full and direct attention, intervention and personal management. The critical care time is as shown. This time is in addition to time spent performing any reported procedures but includes the following: x Data and vital sign review and interpretation x Patient assessment, examination and intervention x Documentation x Medication orders and management Critical Care Time (min): 30 Coding Level of Care Code Acute Refinery Operator Coking for Maxwellg Fwd Diagnoses Acute respiratory failure with hypoxia J96.01 Pulmonary emboli I26.99 Pneumonia J18.9 COPD (chronic obstructive pulmonary disease) J44.9 Pericardial effusion I31.3 Atrial fibrillation with rapid ventricular response I48.91 CHF exacerbation I50.9 Mass of lower lobe of left lung R91.8 HTN (hypertension) I10 Acidosis, lactic E87.2 Rectal cancer C20 Lung cancer C34.90 Cardiac cirrhosis K76.1
[2022-05-31] MEDS: enoxaparin 80 mg/0.8 mL Syringe 75 MG SUBCUT (20:18)
[2022-05-31] MEDS: pantoprazole 40 mg SDV IVP (20:18)
[2022-06-01] VITALS (16 sets, daily range): BP systolic 117–127; BP diastolic 70–82; PULSE 55–101; RESP 16–24; TEMP 36.5–36.7; O2SAT 90–97
[2022-06-01] MEDS: ipratropium-albuterol 3 mL Neb INHALATION ×6 (03:28→23:56)
[2022-06-01 04:45] LABS: Basophils % 0.1 %; Eosinophils % 0.1 %; Hematocrit 39.7 % (42.0-52.0); Hemoglobin 12.6 g/dL (11.7-16.6); Lymphocytes # 0.3 10^3/uL (0.8-4.8); Lymphocytes % 1.9 %; Mean Corpuscular HGB Conc 31.7 g/dL (30.0-36.0); Mean Corpuscular Hemoglobin 29.9 pg (28.0-34.0); Mean Corpuscular Volume 94.3 fl (80-94); Mean Platelet Volume 10.8 fL (7.4-10.4); Monocytes # 1.2 10^3/uL (0.2-0.9); Monocytes % 8.6 %; Neutrophils # 12.04 10^3/uL (1.8-7.7); Neutrophils % 88.6 %; Nucleated Red Blood Cells % 0.1 %; Platelet Count 166 10^3/cmm (130-400); Red Blood Count 4.21 10^6/uL (4.1-5.3); Red Cell Distribution Width 21.2 % (12.1-15.1); White Blood Count 13.6 10^3/uL (4.0-10.0)
[2022-06-01 06:21] LABS: Alanine Aminotransferase 7 U/L (0-41); Albumin Level 2.3 g/dL (3.5-5.2); Alkaline Phosphatase 138 U/L (40-130); Anion Gap 9.7 (5-19); Aspartate Amino Transferase 17 U/L (0-40); Blood Urea Nitrogen 30 mg/dL (8-23); Calcium 8.8 mg/dL (8.5-10.5); Carbon Dioxide 32 mmol/L (22-29); Chloride 101 mmol/L (98-107); Globulin 4.5 g/dL (1.3-4.6); Glucose 122 mg/dL (65-115); Osmolality Calculated 295 mOsm/kg (285-295); Potassium 3.7 mmol/L (3.5-5.1); Sodium 139 mmol/L (136-145); Total Bilirubin 1.1 mg/dL (0.15-1.2); Total Protein 6.8 g/dL (6.6-8.7)
[2022-06-01] MEDS: cefepime 2,000 MG in sodium chloride 0.9% (plus) 50 ML 100 MG IV ×2 (06:30→19:14)
[2022-06-01] MEDS: budesonide 0.5 mg/2 mL Neb INHALATION ×2 (07:28→21:03)
[2022-06-01] MEDS: predniSONE 20 mg Tablet 40 MG PO (08:28)
[2022-06-01] MEDS: atorvastatin 40 mg Tablet PO (08:29)
[2022-06-01] MEDS: enoxaparin 80 mg/0.8 mL Syringe 75 MG SUBCUT ×2 (08:29→20:57)
[2022-06-01] MEDS: metoprolol tartrate 25 mg Tablet PO ×2 (08:29→20:57)
--- NOTE | 2022-06-01 09:00 | USCV_ITS ---
Junior Rambo Age: 76 Gender: M : 1945 Exam Date: 06/01/2022 09:43 Ordering Phys: Abdoul Johnson MD Technologist: CARMEN Exam Location: [facility] – [place] Indication: Reassess pericardial effusion BP: 132 / 74 HR: 101 Rhythm: Sinus Technical Quality: Suboptimal MEASUREMENTS (Male / Female) Normal Values 2D ECHO LVOT Diameter 2.0 cm LV Ejection Fraction MOD 2C 66.9 % LV Ejection Fraction 2C AL 68.3 % LA Diameter 3.7 cm Aorta at Sinotubular Diameter 2.4 cm M-MODE Aortic Annulus Diameter 3.1 cm LA Ao Ratio MM 1.1 FINDINGS Left Ventricle Right Ventricle Right Atrium Left Atrium Mitral Valve Aortic Valve Tricuspid Valve Pulmonic Valve Pericardium Aorta IVC CONCLUSIONS There is a limited echocardiogram performed to reassess pericardial effusion. LV systolic function is grossly normal. Small sized pericardial effusion is seen. Compared to prior echocardiogram from 05/30/2022, no significant changes are seen. Rao Gaspar MD (Electronically Signed) Final Date: 01 June 2022 18:12 S
[2022-06-01] MEDS: vancomycin 1,000 MG in sodium chloride 0.9% 250 ML 250 MG IV (11:10)
--- NOTE | 2022-06-01 11:50 | PC.OT ---
OT TREATMENT ATTEMPTED. PATIENT IS SUPINE IN BED WIGGLING HIS FEET. ASKED PATIENT TO GET OOB AND SIT IN CHAIR FOR LUNCH. HE RESPONDS, I'M FINE, I'M WIGGLING MY FEET. REMINDED PATIENT THAT HIS LUNGS NEED TO BE IN A MORE UPRIGHT POSITION AND THAT SITTING IN A CHAIR AND OOB WOULD PROVIDE THAT. PATIENT VERBALIZES, NOT RIGHT NOW. TOLD PATIENT I WOULD RETURN AFTER LUNCH AND THAT HE NEEDS TO GET OOB.
--- NOTE | 2022-06-01 13:42 | PM.PN ---
Subjective Subjective: He is overall feeling a bit better. Breathing slightly better. Denies chest pain. Discussed with him based on degree of RV dysfunction, risk of further decompensation, troponin elevation, BNP abnormality, although risky consideration could be given to catheter guided thrombolysis, although also with consideration of pericardial effusion. Certainly is difficult decision. He states that he would like to consider first before we try to reach out to any outside facilities, does not yet want to decide right now. Does not yet want us to contact outside facilities. Vitals/I&O/Wt Last Vital Signs Temp 981 F H 06/01/22 11:26 Pulse 85 06/01/22 11:26 Resp 18 06/01/22 11:26 BP 118/70 06/01/22 11:26 Pulse Ox 91 06/01/22 11:26 O2 Del Method 06/01/22 11:26 O2 Flow Rate 4 06/01/22 11:20 05/31/22 06/01/22 06/01/22 22:59 06:59 14:59 Intake Total 770 / 1020 360 / 1380 50 / 50 Balance 770 / 1020 360 / 1380 50 / 50 Weight last 48 hrs Weight 75.41 kg Weight 63.503 kg Physical Exam Const: COMMON NORMALS: patient oriented x3 and alert GENERAL APPEARANCE: cooperative and frail appearing ORIENTATION/CONSCIOUSNESS: Yes awake OTHER: Nasal cannula oxygen HENMT: COMMON NORMALS: oropharynx normal Neck/C-Spine: COMMON NORMALS: no JVD Chest: OTHER: Right chest Port-A-Cath Resp: COMMON NORMALS: normal respiratory effort and clear to auscultation bilaterally AUSCULTATION: clear to auscultation bilaterally Cardio: COMMON NORMALS: no JVD, regular rhythm, S1 normal heart sound present, S2 normal heart sound present and No murmurs present (Cardio) RHYTHM: regular rhythm HEART SOUNDS: S1 normal heart sound present and S2 normal heart sound present GI: COMMON NORMALS: Normal to inspection, nondistended, normoactive bowel sounds present, Soft to palpation and non-tender PALPATION: Yes Soft to palpation Extremity: COMMON NORMALS: no joint enlargement and no pedal edema OTHER: Mild pedal edema Neuro: COMMON NORMALS: patient oriented x3 and moves all extremities SENSORIUM/ORIENTATION: Yes alert Skin: COMMON NORMALS: no rashes or lesions noted GENERAL SKIN EXAM: no rashes or lesions noted Data : 06/01/22 04:37 06/01/22 05:56 Micro: Microbiology 05/30/22 18:20 Blood Culture - Preliminary Blood NEGATIVE TO DATE 05/30/22 18:18 Blood Culture - Preliminary Blood NEGATIVE TO DATE 05/30/22 23:20 MRSA Culture - Final Nose A&P Assessment and plan (1) Acute respiratory failure with hypoxia: With some improvement. He is requiring up to 7.5 L, oxygen, today down to 4 L. Denies chest pain. Maintain blood pressure so far. Certainly systemic tPA would be high risk of bleeding, consideration possibly could be given to catheter directed tPA given degree of right heart dysfunction, troponin abnormality, BNP abnormality. However, also with consideration of pericardial effusion and some possibility of hemorrhagic effusion. Follow-up limited TTE is pending. He states he will want to think about things whether he would want to even consider catheter guided to places even if it was possible, does not yet want us to reach out to outside facilities. For now continue anticoagulation, continue other directed treatments as below. Follow-up pending limited TTE. Multifactorial with PE, pneumonia, COPD exacerbation, acute CHF, underlying lung malignancy. Continue oxygen support. Treat underlying conditions as below. (2) Pulmonary emboli: As above consideration given to possibly catheter guided tPA, although even this may elevate his risk of bleeding. He for now does not want us to reach out to see if he may be candidate, would like to think about it. Discussed with him pericardial effusion, discussed on CT radiology having difficult time being able to distinguish possibility of hemorrhagic pericardial fluid, possibly malignant pericardial fluid collection. Discussed continuation of anticoagulation, risk in case of hemorrhagic effusion. Discussed assessment with echocardiogram. Echocardiogram with noted normal ejection fraction, no R WMA. Dilated right ventricle with paradoxical movements of septum with features suggesting of right ventricular pressure overload/cor pulmonale. Moderate TVR. Severe pulmonary hypertension. Small pericardial effusion. With pericardial effusion not excluded hemorrhagic pericardial effusion, but also with multifocal malignancy at risk of hemorrhage with tPA. Difficult situation. He also has limited goals of care. Currently continue anticoagulation. (3) Pneumonia: Continue cefepime, vancomycin. Collect sputum culture if able to provide. (4) COPD (chronic obstructive pulmonary disease): Continue empiric antibiotics, prednisone, budesonide, breathing treatments. (5) Pericardial effusion: On CT consideration of possibility of hemorrhagic effusion, possibility of malignant pericardial effusion. Discussed with him. Small pericardial effusion on echocardiogram. Follow-up repeat limited cardiogram to track any changes. (6) Atrial fibrillation with rapid ventricular response: Continues on metoprolol 25 mg twice daily. Lovenox 75 mg twice daily. (7) CHF exacerbation: Received 20 mg IV Lasix. Reassess volume status and vital signs with consideration of further diuresis. (8) Mass of lower lobe of left lung: (9) HTN (hypertension): (10) Acidosis, lactic: (11) Rectal cancer: (12) Lung cancer: (13) Cardiac cirrhosis: Attestations Medical Necessity Statement*: Continue admission for assessment of management of PE with significant right ventricular strain, hypoxic respite failure, and gentleman with underlying malignancies, pericardial effusion consideration of whether of hemorrhagic etiology on differential, pneumonia, COPD exacerbation. 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
--- NOTE | 2022-06-01 15:24 | PC.OT ---
OT TREATMENT ATTEMPTED. PATIENT SLEEPING SOUNDLY. WILL ATTEMPT AGAIN TOMORROW.
[2022-06-01] MEDS: pantoprazole 40 mg SDV IVP (20:58)
[2022-06-02] VITALS (18 sets, daily range): BP systolic 118–158; BP diastolic 61–93; PULSE 69–101; RESP 18–24; TEMP 36.5–36.8; O2SAT 90–98
[2022-06-02 02:52] LABS: Basophils % 0.1 %; Eosinophils % 0.1 %; Hematocrit 35.7 % (42.0-52.0); Hemoglobin 11.1 g/dL (11.7-16.6); Lymphocytes # 0.2 10^3/uL (0.8-4.8); Lymphocytes % 1.2 %; Mean Corpuscular HGB Conc 31.1 g/dL (30.0-36.0); Mean Corpuscular Hemoglobin 29.5 pg (28.0-34.0); Mean Corpuscular Volume 94.9 fl (80-94); Monocytes % 7.5 %; Neutrophils # 12.31 10^3/uL (1.8-7.7); Neutrophils % 90.1 %; Nucleated Red Blood Cells % 0.1 %; Platelet Count 148 10^3/cmm (130-400); Red Blood Count 3.76 10^6/uL (4.1-5.3); White Blood Count 13.7 10^3/uL (4.0-10.0)
[2022-06-02 03:20] LABS: Alanine Aminotransferase 10 U/L (0-41); Albumin Level 2.5 g/dL (3.5-5.2); Alkaline Phosphatase 133 U/L (40-130); Anion Gap 12.9 (5-19); Aspartate Amino Transferase 18 U/L (0-40); Blood Urea Nitrogen 27 mg/dL (8-23); Calcium 8.7 mg/dL (8.5-10.5); Carbon Dioxide 30 mmol/L (22-29); Chloride 100 mmol/L (98-107); Globulin 4.1 g/dL (1.3-4.6); Glucose 151 mg/dL (65-115); Osmolality Calculated 296 mOsm/kg (285-295); Potassium 3.9 mmol/L (3.5-5.1); Sodium 139 mmol/L (136-145); Total Protein 6.6 g/dL (6.6-8.7)
[2022-06-02 03:21] LABS: Vancomycin Trough 13.7 ug/mL (10-15)
[2022-06-02] MEDS: vancomycin 1,000 MG in sodium chloride 0.9% 250 ML 250 MG IV (04:23)
[2022-06-02] MEDS: ipratropium-albuterol 3 mL Neb INHALATION ×6 (04:24→21:42)
[2022-06-02] MEDS: budesonide 0.5 mg/2 mL Neb INHALATION ×2 (07:42→21:42)
[2022-06-02] MEDS: enoxaparin 80 mg/0.8 mL Syringe 75 MG SUBCUT ×2 (08:18→20:17)
[2022-06-02] MEDS: predniSONE 20 mg Tablet 40 MG PO (08:19)
[2022-06-02] MEDS: atorvastatin 40 mg Tablet PO (08:19)
[2022-06-02] MEDS: metoprolol tartrate 25 mg Tablet PO ×2 (08:19→18:24)
[2022-06-02] MEDS: cefepime 2,000 MG in sodium chloride 0.9% (plus) 50 ML 100 MG IV ×2 (08:20→20:16)
[2022-06-02] MEDS: FUROsemide 10 mg/mL SDV 4mL 40 MG IVP (09:57)
[2022-06-02] MEDS: morphine 10 mg/0.5 mL oral liq UD 5 MG PO (10:12)
--- NOTE | 2022-06-02 11:16 | PM.PN ---
Subjective Subjective: This morning he is feeling somewhat worse. He is having more dyspnea, cannot catch his breath. Wheezing. Received a breathing treatment with mild improvement. Reports he is decided he does not want to go to any additional facility. States he wants to go to a [facility] and call it quits , confirming with him wants to transition to comfort care, passing at fpc. Does not want to return to the hospital once he goes there. He does not, however, want hospice care involvement. Vitals/I&O/Wt Last Vital Signs Temp 97.9 F 06/02/22 07:32 Pulse 98 06/02/22 10:06 Resp 22 H 06/02/22 10:06 BP 120/69 06/02/22 07:32 Pulse Ox 90 06/02/22 10:06 O2 Del Method 06/02/22 10:06 O2 Flow Rate 10 06/02/22 10:06 06/01/22 06/02/22 06/02/22 22:59 06:59 14:59 Intake Total 720 / 1010 430 / 1440 170 / 170 Output Total 100 / 100 225 / 325 150 / 150 Balance 620 / 910 205 / 1115 20 / 20 Physical Exam Const: COMMON NORMALS: patient oriented x3 and alert GENERAL APPEARANCE: cooperative and frail appearing ORIENTATION/CONSCIOUSNESS: Yes awake OTHER: Nasal cannula oxygen HENMT: COMMON NORMALS: oropharynx normal Neck/C-Spine: COMMON NORMALS: no JVD Chest: OTHER: Right chest Port-A-Cath Resp: COMMON NORMALS: normal respiratory effort AUSCULTATION: wheezes and diminished lung sounds Cardio: COMMON NORMALS: no JVD, regular rhythm, S1 normal heart sound present, S2 normal heart sound present and No murmurs present (Cardio) RHYTHM: regular rhythm HEART SOUNDS: S1 normal heart sound present and S2 normal heart sound present GI: COMMON NORMALS: Normal to inspection, nondistended, normoactive bowel sounds present, Soft to palpation and non-tender PALPATION: Yes Soft to palpation Extremity: COMMON NORMALS: no joint enlargement and no pedal edema OTHER: Trace pedal edema Neuro: COMMON NORMALS: patient oriented x3 and moves all extremities SENSORIUM/ORIENTATION: Yes alert Skin: COMMON NORMALS: no rashes or lesions noted GENERAL SKIN EXAM: no rashes or lesions noted Urinary Catheter Management: Cody: Cath Placed During This Visit: yes Urinary Catheter Date of Insertion: 06/02/22 Urinary Catheter Time of Insertion: 10:48 Data : 06/02/22 02:30 06/02/22 02:30 A&P Assessment and plan (1) Acute respiratory failure with hypoxia: Acutely worsened condition this morning. Dyspnea, wheezing, diminished air entry. Some mild improvement with breathing treatment. Discussed with him additional. Breathing treatment, oxygen support, additional dose steroid, also given 40 mg IV Lasix. Continues on anticoagulation. With regards to overall goals of care once to have arrangements to go to [facility] for comfort and end-of-life care, although does not want hospice company involvement. Arrangements underway. He decided does not want to try to pursue any transfers to any other medical facilities. Added sublingual morphine as needed for air hunger. Follow-up limited TTE with small pericardial effusion. Multifactorial with PE, pneumonia, COPD exacerbation, acute CHF, underlying lung malignancy. Continue oxygen support. Treat underlying conditions as below. (2) Pulmonary emboli: Does not want to consider getting assessed for possible catheter guided tPA. Continues on anticoagulation. Repeat limited TTE with small pericardial effusion. Question was of possibility of hemorrhagic effusion, but this does not appear to be increasing in size and less likely. Echocardiogram with noted normal ejection fraction, no R WMA. Dilated right ventricle with paradoxical movements of septum with features suggesting of right ventricular pressure overload/cor pulmonale. Moderate TVR. Severe pulmonary hypertension. Small pericardial effusion. With pericardial effusion not excluded hemorrhagic pericardial effusion, but also with multifocal malignancy at risk of hemorrhage with tPA. Difficult situation. He also has limited goals of care. Currently continue anticoagulation. (3) Pneumonia: Continue cefepime, vancomycin. Collect sputum culture if able to provide. MRSA PCR negative. Stop vancomycin. (4) COPD (chronic obstructive pulmonary disease): Continue empiric antibiotics, prednisone, budesonide, breathing treatments. Today with decompensation, with wheezing, diminished air entry, worse hypoxic respiratory failure, given additional dose of IV steroid Solu-Medrol, additional breathing treatment. (5) Pericardial effusion: Repeat limited TTE obtained, small small effusion without increase. On CT consideration of possibility of hemorrhagic effusion, possibility of malignant pericardial effusion. Hemorrhagic effusion less likely. (6) Atrial fibrillation with rapid ventricular response: Continues on metoprolol 25 mg twice daily. Lovenox 75 mg twice daily. (7) CHF exacerbation: Additional 40 mg IV Lasix today. Acute diastolic CHF. (8) Mass of lower lobe of left lung: (9) HTN (hypertension): (10) Acidosis, lactic: (11) Rectal cancer: (12) Lung cancer: (13) Cardiac cirrhosis: Attestations Medical Necessity Statement*: Continue admission for assessment of management of multifactorial respiratory failure, goals of care discussion and post discharge planning. 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
--- NOTE | 2022-06-02 14:02 | PC.SOCIAL ---
Pg 2 IMM Explained to pt Pg 2 IMM. No questions voiced. Provided pt a copy. Initialed, dated, & timed a copy & placed in chart.
[2022-06-02] MEDS: pantoprazole 40 mg SDV IVP (22:42)
[2022-06-03] VITALS (10 sets, daily range): BP systolic 126–160; BP diastolic 84–97; PULSE 83–116; RESP 15–24; TEMP 36.5–36.8; O2SAT 90–95
[2022-06-03] MEDS: ipratropium-albuterol 3 mL Neb INHALATION ×3 (03:07→11:41)
[2022-06-03 03:20] LABS: Basophils % 0.1 %; Eosinophils % 0.2 %; Hematocrit 38.1 % (42.0-52.0); Lymphocytes # 0.2 10^3/uL (0.8-4.8); Lymphocytes % 1.6 %; Mean Corpuscular HGB Conc 31.5 g/dL (30.0-36.0); Mean Corpuscular Volume 95.3 fl (80-94); Mean Platelet Volume 10.9 fL (7.4-10.4); Monocytes % 7.9 %; Neutrophils % 89.3 %; Nucleated Red Blood Cells % 0.2 %; Platelet Count 150 10^3/cmm (130-400); Red Cell Distribution Width 21.2 % (12.1-15.1); White Blood Count 13.1 10^3/uL (4.0-10.0)
[2022-06-03 03:53] LABS: Alanine Aminotransferase 12 U/L (0-41); Albumin Level 2.6 g/dL (3.5-5.2); Alkaline Phosphatase 136 U/L (40-130); Anion Gap 12.3 (5-19); Aspartate Amino Transferase 18 U/L (0-40); Blood Urea Nitrogen 31 mg/dL (8-23); Calcium 9.2 mg/dL (8.5-10.5); Carbon Dioxide 31 mmol/L (22-29); Chloride 100 mmol/L (98-107); Glucose 142 mg/dL (65-115); Osmolality Calculated 297 mOsm/kg (285-295); Potassium 4.3 mmol/L (3.5-5.1); Sodium 139 mmol/L (136-145); Total Protein 6.6 g/dL (6.6-8.7)
[2022-06-03] MEDS: cefepime 2,000 MG in sodium chloride 0.9% (plus) 50 ML 100 MG IV (06:45)
[2022-06-03] MEDS: budesonide 0.5 mg/2 mL Neb INHALATION (07:30)
[2022-06-03] MEDS: predniSONE 20 mg Tablet 40 MG PO (08:21)
[2022-06-03] MEDS: FUROsemide 10 mg/mL SDV 4mL 40 MG IVP (08:21)
[2022-06-03] MEDS: atorvastatin 40 mg Tablet PO (08:21)
[2022-06-03] MEDS: metoprolol tartrate 25 mg Tablet PO (08:22)
[2022-06-03] MEDS: enoxaparin 80 mg/0.8 mL Syringe 75 MG SUBCUT (08:22)
[2022-06-03 11:01] LABS: Glucose Point of Care 155 mg/dL (70-110)
--- NOTE | 2022-06-03 11:10 | PC.CHAP ---
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 records division supervisor visit [] Patient/Family/Request visit [] Outpatient visit [] Follow-up visit [] Physician referral [] Code/Alert [x] Routine visit [] Staff referral [] Actively dying [] Patient sleeping [] Family support [] [] Out of room [] Palliative care [] x] Receiving care in room [] Pre-surgical visit [] Trauma [x] Long length of stay [] ICU visit [] Other: Relational/Emotional Strength [] Patient feels connected with others/family/visitors/staff [x] Distress [] Loneliness/isolation [] Abandonment Spirituality of Patient [x] Person of Jeanie [] Attends Temple of their Jeanie [x] Believes in Prayer [] Reads Bible or Shinto materials [] There are Spiritual issues to be addressed Hose Tender Interventions [x] Prayer [x] Active listening [x] Non-anxious presence [x] Spiritual/emotional support [] Crisis/trauma care [x] Spiritual counseling [] Bereavement support [] Provided bereavement packet [] Provided Bible/devotional materials [] Provided toy/stuffed animal, coloring book to patient or family member [] Provided Communion [] Anointing/[place]olph [] Salvation [x] Completed spiritual assessment [] Other: Impact on Illness or Injury [] Angry [] Fearful [x] Anxious [] Often cries [] Exhaustion [x] Unable to work [] Unable to attend adventism [] Unable to walk/stand [] Unable to read [] Unable to drive [] Unable to eat/drink [] Unable to sleep [] Unable to be with family [] Patient intubated [] Other: Summary 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
[2022-06-03] MEDS: ALPRAZolam 0.5 mg Tablet PO (11:29)
--- NOTE | 2022-06-03 11:52 | P.DS_ITS ---
Discharge Providers Date of Admission: 05/30/22 21:18 Date of Discharge: June 03, 2022 Attending Provider at Admission: Bautista Fernando MD Attending Provider at Discharge: Abdoul Johnson Primary Care Provider: Patricia Kinsey NP Diagnoses at Discharge Discharge Diagnosis (1) Acute respiratory failure with hypoxia: Status: Acute (2) Pulmonary emboli: Status: Acute (3) Pneumonia: Status: Acute (4) COPD (chronic obstructive pulmonary disease): Status: Acute (5) Pericardial effusion: Status: Acute (6) Atrial fibrillation with rapid ventricular response: Status: Acute (7) CHF exacerbation: Status: Acute (8) Mass of lower lobe of left lung: Status: Acute (9) HTN (hypertension): Status: Acute (10) Acidosis, lactic: Status: Acute (11) Rectal cancer: Status: Acute (12) Lung cancer: Status: Acute (13) Cardiac cirrhosis: Status: Acute Reason for Visit Reason for Visit: general weakness Hospital Course Hospital Course Pleasant 76-year-old gentleman with rectal adenocarcinoma, status post chemoradiation with possible disruption of the tumor but with lost to follow-up, NSCLC left lung, seen back in June 2021 undergoing staging, seen by rad [facility] with consideration of chemo, radiation. Other history includes atrial fibrillation, on anticoagulation with Eliquis, COPD, cardiomyopathy, carotid stenosis, TIA, presented on 05/30 due to generalized weakness, progressive cough and shortness of breath. Noted new hypoxemia, hypoxic respiratory failure on presentation, requiring nearly 4 L, subsequently up to 8 L oxygen supplementation. Multifactorial hypoxic respite failure secondary to pulmonary embolization despite being on Eliquis for community-acquired pneumonia, COPD exacerbation. CHF exacerbation. Also noted pericardial effusion. Lung malignancy with noted interval Pleural metastatic disease, metastatic lymphadenopathy. On CT initially effusion with possibility of malignant effusion, possible hemorrhagic effusion. With noted RV strain on CT, confirmed to be in severe pulmonary hypertension, ventricular paradoxical movements, pressure overload/cor pulmonale TTE which is new. CT also indicating likely congestive hepatopathy, nodular, mild anasarca. Mild four-quadrant ascites. He was treated with Lovenox anticoagulation, cefepime, vancomycin for pneumonia, COPD,prednisone, IV Lasix for CHF. He has been maintaining blood pressures, oxygenation has been fluctuating although has come down to 6 L simple mask oxygenation. Limited TTE was reassessed with noted again small pleural effusion, not like hemorrhagic, continues on anticoagulation. He indicated he did not want to pursue any further treatments for any of the malignancies. As per discussion with him regarding new development of cor pulmonale, right heart strain, failure, he has been maintaining blood pressure, but with elevation of troponin, BNP, discussed consideration of assessment for catheter directed tPA however, he declined to consider the option. He requested arrangements for discharge to skilled facility for end-of-life care (although without a hospice company), and would not want to return to the hospital. Physical Exam Const: COMMON NORMALS: patient oriented x3 and alert GENERAL APPEARANCE: cooperative and frail appearing ORIENTATION/CONSCIOUSNESS: Yes awake OTHER: Nasal cannula oxygen HENMT: COMMON NORMALS: oropharynx normal Neck/C-Spine: COMMON NORMALS: no JVD Chest: OTHER: Right chest Port-A-Cath Resp: COMMON NORMALS: normal respiratory effort AUSCULTATION: diminished lung sounds Cardio: COMMON NORMALS: no JVD, regular rhythm, S1 normal heart sound present, S2 normal heart sound present and No murmurs present (Cardio) RHYTHM: regular rhythm HEART SOUNDS: S1 normal heart sound present and S2 normal heart sound present GI: COMMON NORMALS: Normal to inspection, nondistended, normoactive bowel sounds present, Soft to palpation and non-tender PALPATION: Yes Soft to palpation Extremity: COMMON NORMALS: no joint enlargement and no pedal edema OTHER: Trace pedal edema Neuro: COMMON NORMALS: patient oriented x3 and moves all extremities SENSORIUM/ORIENTATION: Yes alert Skin: COMMON NORMALS: no rashes or lesions noted GENERAL SKIN EXAM: no rashes or lesions noted Urinary Catheter Management: Cody: Cath Placed During This Visit: yes Reason for Continuing Indwelling Catheter: Other Urinary Catheter Date of Insertion: 06/02/22 Urinary Catheter Time of Insertion: 10:48 Discharge Data Studies Completed and Pending Completed Studies During Hospitalization Category Date Time Status CT angio chest w abd pel w con Stat Cat Scan 05/30/22 17:57 Completed XR chest 1V portable [id number] Stat Exams 05/30/22 17:12 Completed CV. echo complete* [id number] Routine Ultrasound 05/30/22 21:18 Completed CV. echo limited [id number] Routine Ultrasound 06/01/22 09:00 Completed Pending at discharge Category Date Time Status Blood Culture Stat Lab 05/30/22 18:20 Results SARS Covid-2 Antigen Routine Lab 06/03/22 11:11 Received Sputum Culture and Gram Stain Stat Lab 05/30/22 20:36 Uncollected Radiology Impressions Chest X-Ray 05/30/22 17:12 IMPRESSION: 1. Increased size of 7.1 x 6.5 cm mass in the left mid lung field suggesting possible residual/recurrent tumor versus rounded pneumonia. 2. Interval appearance of jcow-hs-fkkvboau loculated left pleural fluid collection. Possible malignant effusion. 3. Stable pleural and/or parenchymal peripheral scarring in the upper lung rivas bilaterally. 4. Stable right Mediport catheter. 5. Stable COPD . Chest/Abdomen/Pelvis CT 05/30/22 17:57 IMPRESSION: 1. Interval increased size of 8.6 x 6.6 x 5.4 cm left mid lung field lesion with central low-density most consistent with lung cancer with central necrosis. 2. Interval appearance of extensive bilateral pleural metastasis. 3. Interval appearance of utvb-ak-hsmbxktc pericardial fluid collection measuring 25 Hounsfield units which could represent complex fluid such as hemorrhagic pericardial fluid and/or malignant pericardial fluid collection. 4. Small right pleural fluid collection. 5. Mild right basilar atelectasis and/or pneumonia with calcified granulomas.. 6. 3.3 cm rounded atelectasis versus rounded pneumonia versus tumor in the right lower lobe, axial series 7, image 391. 7. Mild left hilar adenopathy most consistent with lymph node metastasis. 8. Occlusive pulmonary segmental pulmonary emboli in posterior segment right upper lobe and posterior segment right lower lobe. 9. Severe right heart strain with RV/LV ratio 3.0. IMPRESSION: 1. Mild anasarca consistent with right heart failure versus hypoproteinemia versus renal failure. 2. Mild four-quadrant ascites. 3. There is a nutmeg liver appearance with enlarged liver, diminished parenchymal enhancement, enlarged inferior vena cava and hepatic veins and heterogeneous liver appearance consistent with passive hepatic congestion severe right heart strain and/or prominent pericardial pathology. ADDENDUM: 05/30/221927 THIS REPORT CONTAINS FINDINGS THAT MAY BE CRITICAL TO PATIENT CARE. The findings were verbally communicated via telephone conference with Elijah Melvin at 7:27 PM CDT on 05/30/2022. The findings were acknowledged and understood. Laboratory Results WBC 13.1 10^3/uL (4.0-10.0) H 06/03/22 02:49 RBC 4.00 10^6/uL (4.1-5.3) L 06/03/22 02:49 Hgb 12.0 g/dL (11.7-16.6) 06/03/22 02:49 Hct 38.1 % (42.0-52.0) L 06/03/22 02:49 MCV 95.3 fl (80-94) H 06/03/22 02:49 MCH 30.0 pg (28.0-34.0) 06/03/22 02:49 MCHC 31.5 g/dL (30.0-36.0) 06/03/22 02:49 RDW 21.2 % (12.1-15.1) H 06/03/22 02:49 Plt Count 150 10^3/cmm (130-400) 06/03/22 02:49 MPV 10.9 fL (7.4-10.4) H 06/03/22 02:49 Neut % (Auto) 89.3 % 06/03/22 02:49 Lymph % (Auto) 1.6 % 06/03/22 02:49 [place] % (Auto) 7.9 % 06/03/22 02:49 Eos % (Auto) 0.2 % 06/03/22 02:49 Baso % (Auto) 0.1 % 06/03/22 02:49 Neut # (Auto) 11.70 10^3/uL (1.8-7.7) H 06/03/22 02:49 Lymph # (Auto) 0.2 10^3/uL (0.8-4.8) L 06/03/22 02:49 [place] # (Auto) 1.0 10^3/uL (0.2-0.9) H 06/03/22 02:49 Eos # (Auto) 0.0 10^3/uL (0.0-0.8) 06/03/22 02:49 Baso # (Auto) 0.0 10^3/uL (0.0-0.1) 06/03/22 02:49 Nucleated RBC % (auto) 0.2 % 06/03/22 02:49 Nucleated RBCs # 0.0 /100WBC 06/03/22 02:49 Specimen Type Arterial 05/30/22 17:32 Sample Site Brachial, right 05/30/22 17:32 ABG pH 7.40 (7.35-7.45) 05/30/22 17:32 ABG pCO2 49.5 mmHg (35-45) H 05/30/22 17:32 ABG pO2 70.6 mmHg (80.0-100.0) L 05/30/22 17:32 ABG HCO3 30.3 mmol/L (22-26) H 05/30/22 17:32 ABG Base Excess 4.4 mmol/L (-2.0-2.0) H 05/30/22 17:32 Oc Test Pos 05/30/22 17:32 Hematocrit 39.2 % (42-52) L 05/30/22 17:32 O2 Delivery Device Nc 05/30/22 17:32 O2 Liters/Min 4.0 % 05/30/22 17:32 FiO2 36.0 % 05/30/22 17:32 Contact Lens Lathe Operator ID Bd 05/30/22 17:32 Sodium 139 mmol/L (136-145) 06/03/22 02:49 Potassium 4.3 mmol/L (3.5-5.1) 06/03/22 02:49 Chloride 100 mmol/L (98-107) 06/03/22 02:49 Carbon Dioxide 31 mmol/L (22-29) H 06/03/22 02:49 Anion Gap 12.3 (5-19) 06/03/22 02:49 BUN 31 mg/dL (8-23) H 06/03/22 02:49 Creatinine 1.2 mg/dL (0.7-1.2) 06/03/22 02:49 GFR Calculation Not Reportable 06/03/22 02:49 Glucose 142 mg/dL (65-115) H 06/03/22 02:49 POC Glucose 155 mg/dL (70-110) H 06/03/22 10:57 Estimat Average Glucose 103 05/30/22 17:45 Hemoglobin A1c 5.2 % (4.0-6.0) 05/30/22 17:45 Calculated Osmolality 297 mOsm/kg (285-295) H 06/03/22 02:49 Lactic Acid 3.4 mmol/L (0.5-2.2) H 05/30/22 17:45 Lactic Acid (Sepsis) 2.5 mmol/L (0.5-2.2) H 05/30/22 20:03 Calcium 9.2 mg/dL (8.5-10.5) 06/03/22 02:49 Phosphorus 2.5 mg/dL (2.5-4.5) 05/31/22 00:58 Magnesium 1.8 mg/dL (1.7-2.3) 05/31/22 00:58 Total Bilirubin 1.0 mg/dL (0.15-1.2) 06/03/22 02:49 AST 18 U/L (0-40) 06/03/22 02:49 ALT 12 U/L (0-41) 06/03/22 02:49 Alkaline Phosphatase 136 U/L (40-130) H 06/03/22 02:49 Troponin T Baseline 40 ng/L (0-15) H 05/30/22 17:45 Troponin T 120 Minute 41.43 ng/L (0-15) H 05/30/22 20:03 Delta Troponin T 1.43 ABS# (0-10) 05/30/22 20:03 Troponin T Hi Sens 6Hr 37.88 ng/L (0-15) H 05/31/22 00:58 Troponin T Hi Sens 6Hr Delta -2.12 ng/L (0-12) L 05/31/22 00:58 NT-Pro-B Natriuret Pep 20770 pg/mL (0-450) H 05/30/22 17:45 Total Protein 6.6 g/dL (6.6-8.7) 06/03/22 02:49 Albumin 2.6 g/dL (3.5-5.2) L 06/03/22 02:49 Globulin 4.0 g/dL (1.3-4.6) 06/03/22 02:49 Procalcitonin 0.17 ng/mL (0-0.5) 05/30/22 17:45 TSH 5.68 uIU/mL (0.27-4.20) H 05/30/22 17:45 Urine Color Yellow (Yellow) 05/31/22 00:36 Urine Appearance Clear (CLEAR) 05/31/22 00:36 Urine pH 5 (5-7) 05/31/22 00:36 Ur Specific [place] 1.010 (1.005-1.030) 05/31/22 00:36 Urine Protein Neg (Negative) 05/31/22 00:36 Urine Glucose (UA) Norm (Normal) 05/31/22 00:36 Urine Ketones Negative (Negative) 05/31/22 00:36 Urine Blood Neg (Negative) 05/31/22 00:36 Urine Nitrate Negative (Negative) 05/31/22 00:36 Urine Bilirubin Neg (Negative) 05/31/22 00:36 Urine Urobilinogen 1 mg/dL (Negative) H 05/31/22 00:36 Ur Leukocyte Esterase Negative (Negative) 05/31/22 00:36 Vancomycin Trough 13.7 ug/mL (10-15) 06/02/22 02:30 SARS-CoV-2 Ag (Rapid) Negative (Negative) 05/30/22 18:00 Vitals Last Vital Signs Temp 97.7 F 06/03/22 11:50 Pulse 97 06/03/22 11:50 Resp 15 06/03/22 11:50 BP 126/84 06/03/22 11:50 Pulse Ox 94 06/03/22 11:50 O2 Del Method 06/03/22 11:50 O2 Flow Rate 6 06/03/22 11:41 Discharge Plan Discharge Patient Disposition: Xfer SNF Condition: Fair Prescriptions: New levofloxacin 750 mg tablet 750 mg PO DAILY 7 Days Qty: 7 0RF furosemide 40 mg tablet 40 mg PO DAILY Qty: 90 0RF budesonide 0.5 mg/2 mL Suspension For Nebulization 0.5 mg inhalation BID.RESPIRATORY 14 Days Qty: 60 0RF morphine 10 mg/5 mL solution 5 mg PO Q4H PRN (Reason: dyspnea) Qty: 100 0RF Alprazolam Intensol 1 mg/mL concentrate 0.5 mg PO TID PRN (Reason: anxiety) Qty: 30 0RF prednisone 20 mg Tablet 40 mg PO DAILY Qty: 10 0RF Rx Instructions: 2 tab for 3 days, then 1 tab for 3 days, then 1/2 tab for 2 days. enoxaparin 80 mg/0.8 mL Syringe 75 mg SUBCUT Q12H 90 Days Qty: 135 0RF Continued metoprolol tartrate 25 mg tablet 25 mg PO BID atorvastatin 40 mg tablet 40 mg PO DAILY albuterol sulfate 2.5 mg /3 mL (0.083 %) solution for nebulization 2.5 mg inhalation DAILY PRN (Reason: shortness of breath or wheezing) Qty: 90 3RF budesonide 0.5 mg/2 mL suspension for nebulization 0.5 mg INHALATION BID Qty: 60 6RF formoterol fumarate [Perforomist] 20 mcg/2 mL solution for nebulization 20 mcg INHALATION BID Qty: 120 6RF Yupelri 175 mcg/3 mL solution for nebulization 175 mcg inhalation DAILY Qty: 90 3RF albuterol sulfate [ProAir HFA] 90 mcg/actuation Hfa Aerosol Inhaler 2 puff INHALATION Q4H PRN (Reason: Shortness Of Breath) hydrocodone-acetaminophen 5-325 mg tablet 1 tab PO Q6H PRN (Reason: pain) Qty: 20 0RF Discontinued Eliquis 5 mg tablet 5 mg PO BID Discharge Orders: Discharge Order (Routine); Ordered 06/03/22 Ordered By: Abdoul Johnson Referrals: [facility] [Outside] Patricia Kinsey NP [Primary Care Provider] - 4-7 days Lisette Gonzalez MD [Staff Physician] - 2 weeks Discharge Diet: Regular Discharge Activity: Increase activity as tolerated and Oxygen as instructed Patient Instructions: Enoxaparin (By injection) (Lovenox), Enoxaparin (By injection), Levofloxacin (By mouth), Heart Failure (GEN), A-fib (Atrial Fibrillation) (GEN), Cor Pulmonale (GEN), Pulmonary Embolism (GEN), COPD (Chronic Obstructive Pulmonary Disease) (GEN), Pericardial Effusion (GEN), Pulmonary Arterial Hypertension (GEN), Bacterial Pneumonia (GEN), Comfort Measures (GEN) Activity Restrictions/Additional Instructions: End of life care. Does not want to return to hospital. Oxygen 5-6L/min prefers mask if available, if not cannula. Follow-up with Dr. Gonzalez, discussed pulm embolism despite being on Eliquis. Continue Lovenox at this time. Discussed consideration of transitioning to a different oral medication. Discharge Attestations Time Spent in Discharge Care*: greater than 30 min Quality Metrics Clinical Quality Measures [ No reported AMI, CVA or VTE this stay] Coding Level of Care Code Acute Chg FW DC note Diagnoses Acute respiratory failure with hypoxia J96.01 Pulmonary emboli I26.99 Pneumonia J18.9 COPD (chronic obstructive pulmonary disease) J44.9 Pericardial effusion I31.3 Atrial fibrillation with rapid ventricular response I48.91 CHF exacerbation I50.9 Mass of lower lobe of left lung R91.8 HTN (hypertension) I10 Acidosis, lactic E87.2 Rectal cancer C20 Lung cancer C34.90 Cardiac cirrhosis K76.1
[2022-06-03 12:06] LABS: SARS Covid-2 Antigen Negative (Negative)
--- NOTE | 2022-06-03 12:32 | PC.NURSE ---
Report called to [facility] in [facility].
--- NOTE | 2022-06-03 12:38 | PC.NURSE ---
Called and updated Jennifer Lindsey, patient's family that patient will be discharge to the care home today.
--- NOTE | 2022-06-03 15:43 | PC.NURSE ---
Patient requested to have his Port a cath left in place to go to the [facility]. Patient also went with his Cody Catheter.
--- NOTE | 2022-06-03 15:51 | PC.NURSE ---
Patient had pajama pants that were sent with him.
== END 2022-06-03 15:50 | disposition skilled nursing facility (03) | DRG 175 ==
LOC: ER 19:48 → ICU 05-31 02:41 → MEDSURG 06-01 02:46 → ICU 06-01 02:47
PROVIDERS: Admitting Provider Family Medicine; Emergency Provider Emergency Medicine; PCP Nurse Practitioner Family; Visit Provider Internal Medicine
DX: I26.09 Other pulmonary embolism with acute cor pulmonale (principal); J96.01 Acute respiratory failure with hypoxia; J18.9 Pneumonia, unspecified organism; I50.33 Acute on chronic diastolic (congestive) heart failure; C20 Malignant neoplasm of rectum; C34.32 Malignant neoplasm of lower lobe, left bronchus or lung; C78.2 Secondary malignant neoplasm of pleura; C77.1 Secondary and unspecified malignant neoplasm of intrathoracic lymph nodes; I31.3 Pericardial effusion (noninflammatory); E87.2 Acidosis; I11.0 Hypertensive heart disease with heart failure; J43.9 Emphysema, unspecified; I48.91 Unspecified atrial fibrillation; R91.8 Other nonspecific abnormal finding of lung field; K76.1 Chronic passive congestion of liver; Z66 Do not resuscitate; Z92.21 Personal history of antineoplastic chemotherapy; Z92.3 Personal history of irradiation; Z87.891 Personal history of nicotine dependence; Z79.01 Long term (current) use of anticoagulants; Z86.73 Personal history of transient ischemic attack (TIA), and cerebral infarction without residual deficits
CPT/HCPCS: 36415; 36416; 36600; 51702; 71045; 71275; 74177; 80048; 80053; 80202; 81003; 82803; 82962; 83036; 83605; 83735; 83880; 84100; 84145; 84443; 84484; 85025; 87040; 87426; 87641; 93005; 93306; 93308; 94640; 96365; 96367; 96372; 96375; 96376; 97161; 97165; 97530; 99285; C9113; J0692; J1650; J1940; J2930; J3370; J3490; J7040; J7050; J7512; J7626; Q9967